=== PATIENT | male | born 1930 | race Caucasian/White ===

== ENCOUNTER 2017-05-05 11:13 | Inpatient (IN) | payer MEDICARE ==
[2017-05-05] MEDS ORDERED: ONDANSETRON HCL IV 4 MG/2 ML VIAL IVP ONE ×2 (11:15→11:27)
[2017-05-05] MEDS ORDERED: 0.9 % SODIUM CHLORIDE 1000ML 1,000 ML IV ONE (11:27)
--- NOTE | 2017-05-05 11:31 | Emergency Department Record ---
History of Present Illness - General Chief Complaint: Confusion Stated Complaint: NOT FEELLING WELL Time Seen by Provider: 05/05/17 11:25 Source: Patient, Family Mode of Arrival: Wheelchair Limitations: No limitations - History of Present Illness Initial Comments: 86 yo male presents with weakness, nausea, vomiting, dizziness, trouble concentrating for the last two days. His family reports he has kept very little down during the two days. He is feeling weak and tired. He has some mild upset stomach and vague abdominal discomfort. His family reports he has been confused at times.as well. Normal bowel movement this morning. No fever. No cough, chest pain or shortness of breath. PCP is Dr Xiong. Complaint: Weakness Onset/Timin -: Days(s) Severity: Mild Consistency: Constant Associated Symptoms: Denies other symptoms - Reymundo Coma Scale Eye Response: (4) Open spontaneously Motor Response: (6) Obeys commands Verbal Response: (5) Oriented Reymundo Total: 15 - Related Data Home Medications Medication Instructions Recorded Confirmed Last Taken Cholecalciferol (Vitamin D3) 5,000 unit PO WEEKLY 05/05/17 05/05/17 Unknown [Vitamin D3] Tamsulosin HCl [Flomax] 0.4 mg PO QHS 05/05/17 05/05/17 Unknown Allergies Allergy/AdvReac Type Severity Reaction Status Date / Time triamterene [From Dyazide] AdvReac ITCHING Verified 11/22/15 18:49 Travel Screening - Travel/Exposure Within Last 30 Days Have you traveled within the last 30 days?: No - Travel/Exposure Within Last Year Have you traveled outside the [place] in the last year?: No - Additonal Travel Details Have you been exposed to anyone with a communicable illness?: No - Travel Symptoms Symptom Screening: None Review of Systems Constitutional: Reports: Malaise, Weakness. Denies: Chills, Fever Eyes: Denies: Eye discharge, Eye pain, Photophobia, Vision change ENT: Denies: Congestion, Ear pain, Epistaxis, Throat pain Respiratory: Denies: Cough, Dyspnea, Hemoptysis, Stridor, Wheezes Cardiovascular: Denies: Chest pain, Palpitations, Syncope Endocrine: Reports: Fatigue. Denies: Polydipsia, Polyuria Gastrointestinal: Reports: As per HPI, Abdominal pain, Nausea, Vomiting. Denies : Diarrhea Genitourinary: Denies: Dysuria, Frequency, Hematuria, Urgency Musculoskeletal: Denies: Arthralgia, Back pain, Joint swelling, Myalgia Skin: Denies: Bruising, Change in color, Rash Neurological: Reports: Confusion, Headache, Vertigo, Weakness. Denies: Numbness , Tingling, Tremors Psychiatric: Denies: Anxiety Hematological/Lymphatic: Denies: Blood Clots, Easy bleeding, Easy bruising, Swollen glands Past Medical History - SOCIAL HISTORY Smoking Status: Never smoker Alcohol Use: None Drug Use: None - RESPIRATORY Hx Respiratory Disorders: No - CARDIOVASCULAR Hx Cardio Disorders: Yes Hx Heart Attack: Yes Hx Hypertension: Yes - NEURO Hx Neuro Disorders: No - GI Hx GI Disorders: Yes Hx Reflux: Yes Comment:: bowel obstruction - Hx Genitourinary Disorders: Yes Hx Prostate Problems: Yes - ENDOCRINE Hx Endocrine Disorders: Yes Hx Diabetes: Yes Comment:: checks blood sugars 2x/day - MUSCULOSKELETAL Hx Musculoskeletal Disorders: Yes Hx Arthritis: Yes - PSYCH Hx Psych Problems: No - HEMATOLOGY/ONCOLOGY Hx Hematology/Oncology Disorders: Yes Hx Cancer: Yes (Colon) Hx Chemotherapy: No Hx Radiation Therapy: Yes Family Medical History Any Significant Family History?: Yes Hx Heart Disease: Mother Physical Exam - General General Appearance: Alert, Oriented x3, Cooperative, No acute distress Limitations: No limitations - Head Head exam: Atraumatic, Normocephalic, Normal inspection - Eye Eye exam: Normal appearance, PERRL. negative: Conjunctival injection, Periorbital swelling - ENT ENT exam: Normal exam, Mucous membranes moist, Normal orophraynx Ear exam: Normal external inspection Nasal Exam: Normal inspection Mouth exam: Normal external inspection - Neck Neck exam: Normal inspection, Full ROM. negative: Tenderness - Respiratory Respiratory exam: Normal lung sounds bilaterally. negative: Respiratory distress - Cardiovascular Cardiovascular Exam: Regular rate, Normal rhythm, Normal heart sounds Peripheral Pulses: 2+: Radial (R), Radial (L) - GI/Abdominal GI/Abdominal exam: Soft, Tenderness (Mid epigastric tenderness at this time but very soft). negative: Distended, Guarding, Rebound, Rigid - Rectal Rectal exam: Deferred - exam: Deferred - Extremities Extremities exam: Normal inspection, Full ROM. negative: Pedal edema, Tenderness - Back Back exam: Reports: Normal inspection. Denies: CVA tenderness (R), CVA tenderness (L) - Neurological Neurological exam: Alert, CN II-XII intact. negative: Motor sensory deficit - Psychiatric Psychiatric exam: Normal affect, Normal mood. negative: Agitated, Anxious - Skin Skin exam: Dry, Intact, Normal color, Warm Course Vital Signs 05/05/17 11:18 Temperature 97.4 F L Pulse Rate 92 H Respiratory 20 Rate Blood Pressure 183/104 Pulse Ox 95 - Reevaluation(s) Reevaluation #1: EMR reviewed from last H and P. Hx of DM, CAD, bowel obstruction, HTN. 05/05/17 11:30 05/05/17 12:01 EKG 11:43 NSR rate of 84 intervals QtC 464, [place] left, [facility], no significant changes from 09/06/16. 05/05/17 12:10 The labs were reviewed to this point CBC no acute changes. hgb is 16 with WBC 11 On the CMP the glucose is elevated at 585, AG of 23 and HCO3 of 20. BUN and CR are 18 and 0.6 Troponin is axbamgh2a LFT are negative. 05/05/17 12:14 On recheck the patient has improved nausea His abdomen is very soft and not tender. pH and Acetone included. 05/05/17 13:08 pH is 7.34 with positive acetone 05/05/17 13:16 I KELLY Lau of the admission service for admission for elevated glucose, weakness, and confusion Medical Decision Making - Lab Data Result diagrams: 05/05/17 11:35 05/05/17 11:35 Disposition Disposition: Admit Clinical Impression: Hyperglycemia, Nausea and vomiting Disposition: Still a Patient at [facility] Decision to Admit: Admit from ER Decision to Admit Date: 05/05/17 Decision to Admit Time: 13:16 Condition: (2) Stable Time of Disposition: 13:16 Quality - Quality Measures Quality Measures: N/A - Blood Pressure Screening Does Patient Have Any of the Following: No Blood Pressure Classification: Hypertensive Reading Systolic Measurement: 171 Diastolic Measurement: 103 Screening for High Blood Pressure: < Pre-Hypertensive BP, F/U Documented > [ [id number]] Pre-Hypertensive Follow-up Interventions: Referral to alternative/primary care provider.
[2017-05-05 11:45] LABS: HEMATOCRIT 47.6 % (42.0-52.0); HEMOGLOBIN 16.5 gm/dl (14.0-18.0); MEAN CELL VOLUME 83.5 fl (81-97); MEAN CORPUSCULAR HEMOGLOBIN 28.9 pg (27-33); MEAN CORPUSCULAR HGB CONC 34.7 g/dl (32-36); MEAN PLATELET VOLUME 11.8 fl (7.4-10.4); PLATELET COUNT 243 K/uL (130-400); RED CELL DISTRIBUTION WIDTH 13.9 % (11.5-14.5); WHITE BLOOD COUNT W/O DIFF 11.2 K/uL (4.2-12.2)
[2017-05-05 12:02] LABS: ALB/GLOB RATIO 1.5 (1.1-1.8); ALBUMIN 4.2 g/dL (4.0-5.0); ALKALINE PHOSPHATASE 129 U/L (40-129); ALT/SGPT 19 U/L (<41); AST/SGOT 18 U/L (10.0-50.0); BLOOD UREA NITROGEN 18 mg/dL (8-23); CREATININE 0.9 mg/dL (0.7-1.2); EST GLOMERULAR FILTRATION RATE > 60 mL/min
[2017-05-05 12:06] LABS: TROPONIN I < 0.30 ng/mL (0.00-0.300)
[2017-05-05 12:45] LABS: URINE APPEARANCE CLEAR; URINE BILIRUBIN NEGATIVE (NEGATIVE); URINE BLOOD TRACE-I (NEGATIVE); URINE COLOR YELLOW; URINE KETONE 40 mg/dL (NEGATIVE); URINE LEUKOCYTE ESTERASE NEGATIVE (NEGATIVE); URINE NITRITE NEGATIVE (NEGATIVE); URINE PROTEIN TRACE (NEGATIVE); URINE UROBILINOGEN 0.2 E.U./dL (0.20 - 1.00)
[2017-05-05 12:55] LABS: URINE RBC 0 - 2 (NONE SEEN); URINE SQUAMOUS EPITHELIAL CELL 0 - 2 /hpf; URINE WBC 0 - 2 (0-2/hpf)
[2017-05-05 13:03] LABS: ACETONE,SERUM POSITIVE (NEGATIVE)
[2017-05-05] MEDS ORDERED: HUMULIN R 100 UNIT/ML VIAL SQ ONE (13:03)
[2017-05-05] MEDS ORDERED: ONDANSETRON HCL IV 4 MG/2 ML VIAL IVP PRN (13:48)
[2017-05-05] MEDS ORDERED: POTASSIUM CHLORIDE/D5-0.9%NACL 20 MEQ/1,000 ML BAG IV ONE (13:48)
[2017-05-05] MEDS ORDERED: FLU VAC QS 2017-18 (INPT, 6MO+) 60MCG/0.5ML IM ONE (14:02)
[2017-05-05] MEDS ORDERED: PNEUM 13-VAL/PF 0.5 ML IM ONE (14:08)
[2017-05-05] MEDS ORDERED: LEVEMIR FLEXTOUCH 100 UNIT/ML INSULIN PEN SQ ONE (15:08)
[2017-05-05 16:54] LABS: BLOOD UREA NITROGEN 18 mg/dL (8-23); EST GLOMERULAR FILTRATION RATE > 60 mL/min
[2017-05-05 17:09] LABS: GLUCOSE,RANDOM 585 mg/dL (74-109)
[2017-05-05 17:10] LABS: GLUCOSE,RANDOM 470 mg/dL (74-109)
[2017-05-05] MEDS: 0.9 % SODIUM CHLORIDE 1000ML 1,000 ML IV SCH (17:24)
[2017-05-05] MEDS: CARVEDILOL 3.125 MG TABLET PO SCH (21:08)
[2017-05-05] MEDS: SIMVASTATIN 20 MG TABLET PO SCH (21:09)
[2017-05-05] MEDS: DULOXETINE HCL 30 MG CAPSULE.DR PO SCH (21:09)
[2017-05-05] MEDS: TAMSULOSIN HCL 0.4 MG CAP.ER.24H PO SCH (21:10)
[2017-05-05] MEDS: LEVEMIR FLEXTOUCH 100 UNIT/ML INSULIN PEN SQ SCH (21:45)
[2017-05-06] MEDS: 0.9 % SODIUM CHLORIDE 1000ML 1,000 ML IV SCH ×3 (01:54→16:07)
[2017-05-06] MEDS: PANTOPRAZOLE SODIUM 40 MG TABLET PO SCH (06:08)
[2017-05-06 06:45] LABS: BLOOD UREA NITROGEN 12 mg/dL (8-23); CREATININE 0.8 mg/dL (0.7-1.2); EST GLOMERULAR FILTRATION RATE > 60 mL/min; GLUCOSE,RANDOM 280 mg/dL (74-109)
--- NOTE | 2017-05-06 07:37 | History & Physical ---
History of Present Illness - Date of Service Date of Service for History & Physical: 05/06/17 - History of Present Illness Admitting Diagnosis: Hyperglycemia, dehydration, confusion, weakness History of Present Illness: Mr. Salcedo is an 86 y/o male who presents with complaint of nausea, vomiting and weakness of the past 3 days. As per the patient's he complained of abdominal pains and having an upset stomach and then had about 4 episodes of non -bloody vomiting and a loose bowel movement. She says that he his diabetic and eats very poorly and has had poor control of his blood sugar because of his diet. The patient says that he continued taking his insulin dspite not being able to keep food down but his states that he sometimes forgets to take his insulin. He has had no other sick contacts and no one else within the household has had similar symptoms. The patient denies, headache, blurring of vision, fever or chest pain. Travel Screening - Travel/Exposure Within Last 30 Days Have you traveled within the last 30 days?: No - Travel/Exposure Within Last Year Have you traveled outside the [place] in the last year?: No - Additonal Travel Details Have you been exposed to anyone with a communicable illness?: No - Travel Symptoms Symptom Screening: None Review of Systems Constitutional: Reports: Malaise, Weakness. Denies: Chills, Fever Eyes: Denies: Eye discharge, Eye pain, Photophobia, Vision change ENT: Reports: Hearing loss (the patient is hard of hearing and wears hearing devices bilaterally ). Denies: Congestion, Ear pain, Epistaxis, Throat pain Respiratory: Denies: Cough, Dyspnea, Hemoptysis, Stridor, Wheezes Cardiovascular: Denies: Chest pain, Palpitations, Syncope Endocrine: Reports: Fatigue, Other (diabetes mellitus with poor control ). Denies: Polydipsia, Polyuria Gastrointestinal: Reports: As per HPI, Abdominal pain, Nausea, Vomiting. Denies : Diarrhea Genitourinary: Denies: Dysuria, Frequency, Hematuria, Urgency Musculoskeletal: Denies: Arthralgia, Back pain, Joint swelling, Myalgia Skin: Denies: Bruising, Change in color, Rash Neurological: Reports: Confusion, Headache, Vertigo, Weakness. Denies: Numbness , Tingling, Tremors Psychiatric: Denies: Anxiety Hematological/Lymphatic: Denies: Blood Clots, Easy bleeding, Easy bruising, Swollen glands Past Medical History - SOCIAL HISTORY Smoking Status: Never smoker Alcohol Use: None Drug Use: None - RESPIRATORY Hx Respiratory Disorders: No - CARDIOVASCULAR Hx Cardio Disorders: Yes Hx Heart Attack: Yes Hx Hypertension: Yes - NEURO Hx Neuro Disorders: No - GI Hx GI Disorders: Yes Hx Reflux: Yes Comment:: bowel obstruction - Hx Genitourinary Disorders: Yes Hx Prostate Problems: Yes - ENDOCRINE Hx Endocrine Disorders: Yes Hx Diabetes: Yes Comment:: checks blood sugars 2x/day - MUSCULOSKELETAL Hx Musculoskeletal Disorders: Yes Hx Arthritis: Yes - PSYCH Hx Psych Problems: No - HEMATOLOGY/ONCOLOGY Hx Hematology/Oncology Disorders: Yes Hx Cancer: Yes (Colon) Hx Chemotherapy: No Hx Radiation Therapy: Yes Family Medical History Any Significant Family History?: Yes Hx Heart Disease: Mother H&P Meds/Allergies - Allergies Allergies: Allergies Allergy/AdvReac Type Severity Reaction Status Date / Time triamterene [From Dyazide] AdvReac ITCHING Verified 11/22/15 18:49 - Home Medications Home Medications Medication Instructions Recorded Confirmed Last Taken Cholecalciferol (Vitamin D3) 5,000 unit PO WEEKLY 05/05/17 05/05/17 Unknown [Vitamin D3] Tamsulosin HCl [Flomax] 0.4 mg PO QHS 05/05/17 05/05/17 Unknown - Active Medications Active Medications: Current Medications Aspirin (Aspirin, Regular) 325 mg PO DAILY [facility] Carvedilol (Coreg) 6.25 mg PO BID [facility] Last Admin: 05/05/17 21:08 Dose: 6.25 mg Duloxetine HCl (Cymbalta) 60 mg PO QHS [facility] Last Admin: 05/05/17 21:09 Dose: 60 mg Enoxaparin Sodium (Lovenox) 40 mg SC DAILY [facility] Sodium Chloride () 1,000 mls @ 100 mls/hr IV .Q10H [facility] Last Admin: 05/06/17 01:54 Dose: 100 mls/hr Insulin Detemir (Levemir Flextouch) 30 unit SQ BID [facility] Last Admin: 05/05/17 21:45 Dose: 30 unit Ondansetron HCl (Zofran) 4 mg IVP Q4H PRN PRN Reason: NAUSEA [facility]opraz[facility] Last Admin: 05/06/17 06:08 Dose: 40 mg Patient Own Med: (Felodipine 10 Mg Tab) 1 each PO DAILY [facility] Simvastatin (Zocor) 40 mg PO QHS [facility] Last Admin: 05/05/17 21:09 Dose: 40 mg Tamsulosin HCl (Flomax) 0.4 mg PO QHS [facility] Last Admin: 05/05/17 21:10 Dose: 0.4 mg Vitamin D (Vitamin D3) 5,000 unit PO WEEKLY [facility] Physical Exam - Vital Signs Vital Signs: Vital Signs - Last 24 Hrs Temp Pulse Resp BP Pulse Ox 05/06/17 04:00 97.7 F 76 18 152/93 99 05/06/17 00:00 98.0 F 68 18 157/79 97 05/05/17 21:00 78 20 05/05/17 19:48 97.7 F 78 20 153/89 97 05/05/17 15:48 98.1 F 85 150/91 98 05/05/17 14:17 84 20 05/05/17 13:48 97.4 F L 82 177/99 98 - General General Appearance: Alert, Oriented x3, Cooperative, No acute distress Limitations: No limitations - Head Head exam: Atraumatic, Normocephalic, Normal inspection - Eye Eye exam: Normal appearance, PERRL. negative: Conjunctival injection, Periorbital swelling - ENT ENT exam: Normal exam, Mucous membranes moist, Normal orophraynx Ear exam: Normal external inspection, Other (poor hearing bilaterally ) Nasal Exam: Normal inspection Mouth exam: Normal external inspection - Neck Neck exam: Normal inspection, Full ROM. negative: Tenderness - Respiratory Respiratory exam: Normal lung sounds bilaterally. negative: Respiratory distress - Cardiovascular Cardiovascular Exam: Regular rate, Normal rhythm, Normal heart sounds Peripheral Pulses: 2+: Radial (R), Radial (L) - GI/Abdominal GI/Abdominal exam: Soft, Normal bowel sounds. negative: Distended, Guarding, Rebound, Rigid, Tenderness - Rectal Rectal exam: Deferred - exam: Deferred - Extremities Extremities exam: Normal inspection, Full ROM. negative: Pedal edema, Tenderness - Back Back exam: Reports: Normal inspection. Denies: CVA tenderness (R), CVA tenderness (L) - Neurological Neurological exam: Alert, CN II-XII intact. negative: Motor sensory deficit - Psychiatric Psychiatric exam: Normal affect, Normal mood. negative: Agitated, Anxious - Skin Skin exam: Dry, Intact, Normal color, Warm Results - Labs Result Diagrams: 05/05/17 11:35 05/06/17 06:30 Labs Last 24 Hours: Laboratory Results - last 24 hr 05/05/17 05/05/17 05/05/17 14:55 16:30 17:00 Sodium 139 Potassium 4.6 H Chloride 100 Carbon Dioxide 25.0 Anion Gap 14.0 BUN 18 Creatinine 1.0 Estimated GFR > 60 POC Glucose 463 H* Cancelled Random Glucose 470 H* Calcium 8.8 05/05/17 05/05/17 05/05/17 17:07 21:51 22:00 Sodium Potassium Chloride Carbon Dioxide Anion Gap BUN Creatinine Estimated GFR POC Glucose 470 H* 400 H Cancelled Random Glucose Calcium 05/06/17 06:30 Sodium 138 Potassium 4.0 Chloride 101 Carbon Dioxide 27.0 Anion Gap 10.0 BUN 12 Creatinine 0.8 Estimated GFR > 60 POC Glucose Random Glucose 280 H Calcium 8.3 L VTE H&P Assessment - Risk for VTE Risk for VTE: No Risk Level: Very Low Risk Assessment Date: 05/06/17 Risk Assessment Time: 11:55 VTE Orders Placed or Will Be Placed: No VTE Reason for No Prophylaxis: Not Indicated Plan - Inpatient Certification Inpatient Certification: Admit to inpatient care: Based on my medical assessment, after consideration of patient's risk factors (age, co-morbidities and patient presenting symptoms and acuity), I expect that this patient will remain in the hospital greater than or equal to two midnights and that the services needed warrant inpatient care because: Estimated length of stay: 48 hours The patient may reasonably be expected to be discharged or transferred to a hospital within 96 hours after admission to [facility]. I certify that my determination is in accordance with my understanding of Medicare requirements for reasonable and necessary inpatient services. 05/06/17 11:55 - Detailed Diagnosis and Plan (1) Viral gastroenteritis Plan: - pt had N/V/diarrhea, no fever/no elevatoin in WBCs, -now resolved. - keep patient hydrated, was D5 1/2 NS @ 15mL/hr, changed to Nacl 0.9% @ 100mL/ hr - on liquid diet, to be advanced to full diet this am. - cont Protonix 40mg IV QD, Zofran 4mg PRN Current Visit: Yes Status: Acute Base Code: A08.4 - VIRAL INTESTINAL INFECTION, UNSPECIFIED (2) Hyperglycemia due to type 2 diabetes mellitus Plan: - intial serum glucose 585 AG 23, ketonuria and + acetones - pt started on Levemir 30units BID, CBG 400 --> 470 --> additional dose of Levemir 10 units given on GMF -->280 - diabetic diet to be advanced as tolerated, CBGs q8H, cont IVF Nacl 0.9% @ 100mL/hr - Current Visit: Yes Status: Acute Base Code: E11.65 - TYPE 2 DIABETES MELLITUS WITH HYPERGLYCEMIA (3) BPH (benign prostatic hyperplasia) Plan: - resume flomax 0.4mg QD Current Visit: Yes Status: Acute Base Code: N40.0 - BENIGN PROSTATIC HYPERPLASIA WITHOUT LOWER URINRY TRACT SYMP (4) Hypertension Plan: - current BP 147/92 -ECG - normal w/o evidence of any ST-T wave abnormalities. - resumed Coreg 6.25mg BID, ASA 81mg and statin. Current Visit: Yes Status: Acute Base Code: I10 - ESSENTIAL (PRIMARY) HYPERTENSION (5) Full code status Plan: FULL CODE Current Visit: Yes Status: Acute Base Code: Z78.9 - OTHER SPECIFIED HEALTH STATUS - Disposition Likely D/C today of tolerating diet and CBG shows improvement over the next few hours.
[2017-05-06] MEDS: ASPIRIN 325 MG TABLET PO SCH (09:14)
[2017-05-06] MEDS: ENOXAPARIN 40 MG/0.4 ML SYR SC SCH (09:14)
[2017-05-06] MEDS: LEVEMIR FLEXTOUCH 100 UNIT/ML INSULIN PEN SQ SCH (09:14)
[2017-05-06] MEDS: CARVEDILOL 3.125 MG TABLET PO SCH ×2 (09:14→22:42)
[2017-05-06] MEDS: FELODIPINE 10 MG PO SCH (09:20)
--- NOTE | 2017-05-06 12:21 | Discharge Summary ---
Providers Discharge Summary Date: 05/07/17 Date of admission: 05/05/17 13:45 Attending physician: Benjamin Palmer Primary care physician: MARISELA DELEON D.O. Physical Exam - Vital Signs Vital Signs: Vital Signs - Last 24 Hrs Temp Pulse Resp BP Pulse Ox 05/06/17 08:28 20 05/06/17 08:00 97.9 F 77 18 147/92 98 05/06/17 04:00 97.7 F 76 18 152/93 99 05/06/17 00:00 98.0 F 68 18 157/79 97 05/05/17 21:00 78 20 05/05/17 19:48 97.7 F 78 20 153/89 97 05/05/17 15:48 98.1 F 85 150/91 98 05/05/17 14:17 84 20 05/05/17 13:48 97.4 F L 82 177/99 98 - General General Appearance: Alert, Cooperative, No acute distress Limitations: No limitations - Head Head exam: Atraumatic, Normocephalic, Normal inspection - Eye Eye exam: Normal appearance, PERRL. negative: Conjunctival injection, Periorbital swelling - ENT ENT exam: Normal exam, Mucous membranes moist, Normal orophraynx Ear exam: Normal external inspection, Other (poor hearing bilaterally ) Nasal Exam: Normal inspection Mouth exam: Normal external inspection - Neck Neck exam: Normal inspection, Full ROM. negative: Tenderness - Respiratory Respiratory exam: Normal lung sounds bilaterally. negative: Respiratory distress - Cardiovascular Cardiovascular Exam: Regular rate, Normal rhythm, Normal heart sounds Peripheral Pulses: 2+: Radial (R), Radial (L) - GI/Abdominal GI/Abdominal exam: Soft, Normal bowel sounds. negative: Distended, Guarding, Rebound, Rigid, Tenderness - Rectal Rectal exam: Deferred - exam: Deferred - Extremities Extremities exam: Normal inspection, Full ROM. negative: Pedal edema, Tenderness - Back Back exam: Reports: Normal inspection. Denies: CVA tenderness (R), CVA tenderness (L) - Neurological Neurological exam: Alert, CN II-XII intact. negative: Motor sensory deficit - Psychiatric Psychiatric exam: Normal affect, Normal mood. negative: Agitated, Anxious - Skin Skin exam: Dry, Intact, Normal color, Warm Hospitalization - Hospitalization Admission Diagnosis: Hyperglycemia, dehydration, confusion, weakness - Problem List/Discharge Diagnosis (1) Viral gastroenteritis Plan: - pt had N/V/diarrhea, no fever/no elevatoin in WBCs, -now resolved. - keep patient hydrated, was D5 1/2 NS @ 15mL/hr, changed to Nacl 0.9% @ 100mL/ hr - on liquid diet, to be advanced to full diet this am. - cont Protonix 40mg IV QD, Zofran 4mg PRN Current Visit: Yes Status: Acute Base Code: A08.4 - VIRAL INTESTINAL INFECTION, UNSPECIFIED (2) Hyperglycemia due to type 2 diabetes mellitus Plan: - intial serum glucose 585 AG 23, ketonuria and + acetones - pt started on Levemir 30units BID, CBG 400 --> 470 --> additional dose of Levemir 10 units given on F -->280 - diabetic diet to be advanced as tolerated, CBGs q8H, cont IVF Nacl 0.9% @ 100mL/hr - Current Visit: Yes Status: Acute Base Code: E11.65 - TYPE 2 DIABETES MELLITUS WITH HYPERGLYCEMIA (3) BPH (benign prostatic hyperplasia) Plan: - resume flomax 0.4mg QD Current Visit: Yes Status: Acute Base Code: N40.0 - BENIGN PROSTATIC HYPERPLASIA WITHOUT LOWER URINRY TRACT SYMP (4) Hypertension Plan: - current BP 147/92 -ECG - normal w/o evidence of any ST-T wave abnormalities. - resumed Coreg 6.25mg BID, ASA 81mg and statin. Current Visit: Yes Status: Acute Base Code: I10 - ESSENTIAL (PRIMARY) HYPERTENSION (5) Full code status Plan: FULL CODE Current Visit: Yes Status: Acute Base Code: Z78.9 - OTHER SPECIFIED HEALTH STATUS - Disposition Likely D/C today of tolerating diet and CBG shows improvement over the next few hours. - Hospitalization Course Hospital Course: 86 y/o male who presented with complaint of N/V, diarrhea for 3 days. He was found on admission to be hyperglycemic and appeared weak and lethargic on physical examination. Initial workup ruled out acute coronary of gastrointestinal pathologies and the patient was started on IVF and insulin dosing. He was admitted to the [facility] for further monitoring. His initial CBG on the [facility] was 470, he was given an additional 10 units of Levemir and the CBG decreased to 400mg and subsequently 280 on this morning's read. The patient's symptoms have resolved and he no longer complains of diarrhea, or N/V. He has been on a clear liquid diet which will be advanced to a full diabetic diet this morning. If the patient tolerates the diet and CBG improves discharge is anticipated for this afternoon. addendum: the patient's CBG was sustained at > 300 so he was kept overnight. He is given a basal dose of Levemir 30 units QHS with pre-meal doses of 12 units TIDAC which markedly improved symptoms. The patient will be educated on his dosing and plan for d/c. Abnormal Labs: Abnormal Lab Results 05/05/17 05/05/17 05/05/17 Range/Units 14:55 16:30 17:07 Potassium 4.6 H (3.4-4.5) mmol/L POC Glucose 463 H* 470 H* (70-110) mg/dL Random Glucose 470 H* (74-109) mg/dL Calcium (8.8-10.2) mg/dL 05/05/17 05/06/17 Range/Units 21:51 06:30 Potassium (3.4-4.5) mmol/L POC Glucose 400 H (70-110) mg/dL Random Glucose 280 H (74-109) mg/dL Calcium 8.3 L (8.8-10.2) mg/dL Condition at Discharge: (2) Stable Discharge Medications - Discharge Medications Prescriptions: Insulin Aspart [Novolog Flexpen] 12 unit SQ TIDINS #1 ml Home Medications: Ambulatory Orders Aspirin, Regular 325 mg PO DAILY 01/15/14 [Last Taken 11/22/15] Carvedilol [Coreg] 6.25 mg PO BID 01/15/14 [Last Taken 11/22/15] Duloxetine HCl [Cymbalta] 60 mg PO QHS 01/15/14 [Last Taken 11/21/15] Felodipine [Felodipine ER] 10 mg PO DAILY 01/15/14 [Last Taken 11/22/15] Omeprazole [Prilosec] 20 mg PO DAILYAC 01/15/14 [Last Taken 11/22/15] Simvastatin [Zocor] 40 mg PO QHS 01/15/14 [Last Taken 11/21/15] Cholecalciferol (Vitamin D3) [Vitamin D3] 5,000 unit PO WEEKLY 05/05/17 [Last Taken Unknown] Tamsulosin HCl [Flomax] 0.4 mg PO QHS 05/05/17 [Last Taken Unknown] Insulin Aspart [Novolog Flexpen] 12 unit SQ TIDINS #1 ml 05/07/17 [Last Taken Unknown] Insulin Glargine,Hum.rec.anlog [Lantus] 35 unit SQ BID #0 05/07/17 [Last Taken 11/22/15] Tamsulosin HCl [Flomax] 0.4 mg PO QHS cap.er.24h 05/07/17 [Last Taken Unknown] Discharge Plan - Discharge Instructions Activity at Discharge: Resume Usual Activities As Tolerated Diet at Discharge: Diabetic Diet Instructions: Diabetic Ketoacidosis (DC), Meal Planning with Diabetes Exchanges (DC), Managing Diabetes During Sick Days (DC), Diabetic Hyperglycemia (DC) Quality Measures - Quality Measures Quality Measures: Atrial Fibrillation & Atrial Flutter: Chronic Anticoagulation Therapy, Advance Directives, Documentation of Current Medications in Medical Record, Elder Maltreatment Screen and Follow-Up Plan, Heart Failure, Screening for High Blood Pressure and F/U Documented - Current Medications Quality Measure: Measure #130: Documentation of Current Medications Documentation of Current Medications: <Current Medications Documented/Reviewed> [G8413] - Blood Pressure Screening Quality Measure: Screening for High Blood Pressure and Follow-Up Documented Does Patient Have Any of the Following: Active Dx of HTN Blood Pressure Classification: Hypertensive Reading Systolic Measurement: 171 Diastolic Measurement: 103 Screening for High Blood Pressure: Patient Exclusion, Hx of HTN [G9744] - Atrial Fibrillation and Atrial Flutter Quality Measure: Atrial Fibrillation & Atrial Flutter: Chronic Anticoagulation Therapy Does Patient Have Any of the Following: No CHADS2 Risk Stratification: Age 75 or Greater, Hypertension, Diabetes Mellitus Risk Stratification Summary: One or more high risk factors OR more than one moderate risk factor exists. [G8972] Anticoagulation Therapy: Not Prescribed for Patient Reason [G8969] (N/V) Patient Reason for NOT Prescribing Anticoagulant: Other Patient Reason Medical Reason for NOT Prescribing Anticoagulant: Other Medical Reason (N/V) - Heart Failure (KAREN/ARB Therapy) Quality Measure: Heart Failure Left Ventricular Systolic Function: Unknown KAREN Inhibitor or ARB Therapy for LVSD: Not Eligible - Heart Failure (Beta-shaggy Therapy) Quality Measure: Heart Failure Left Ventricular Systolic Function: Unknown Beta-Shaggy Therapy for LVEF < 40%: Not Eligible - Advance Directives Quality Measure: Measure #47: Care Plan Advance Directives Established: Yes Advance Directives Information Provided To Patient: No Advance Directives on File: No Living Will: Yes Power of Netsuite Developer: Yes Advance Care Planning: <Care Plan/Decision Maker Not Decided; Discussed & Documented> [1124F] - Elder Abuse Suspicion Index Screening: Elder Abuse Suspicion Index Screening Rely on people for bathing, dressing, shopping, banking, etc: No Prevented from getting food, clothes, medication, etc: No Made to feel shamed or threatened by someone: No Forced to sign papers or use money against will: No Feel afraid, touched in ways not wanted or hurt physically: No Poor eye contact, withdrawn, malnourished, cuts or bruises: No Screening Result: Negative result EASI Reference Information: Feliciano MCKEON, Fidencio C, Derrek D, Lizzie Barone.Development and validation of a tool to assist physicians identification of elder abuse: The Elder Abuse Suspicion Index (EASI ). Journal of Elder Abuse and Neglect, 2008; 20 (3): 276-300. - Elder Maltreatment Screen Quality Measures: Elder Maltreatment Screen and Follow-Up Plan Elder Maltreatment Screen: <Negative, No Follow-Up Plan Required> [G2303]
[2017-05-06] MEDS ORDERED: NOVOLOG FLEXPEN (INSULIN ASPART) 100 UNITS/ML SQ ONE (14:14)
[2017-05-06] MEDS: NOVOLOG FLEXPEN (INSULIN ASPART) 100 UNITS/ML SQ SCH (17:26)
[2017-05-06] MEDS ORDERED: LEVEMIR FLEXTOUCH 100 UNIT/ML INSULIN PEN SQ SCH ×2 (22:00)
[2017-05-06] MEDS: TAMSULOSIN HCL 0.4 MG CAP.ER.24H PO SCH (22:42)
[2017-05-06] MEDS: DULOXETINE HCL 30 MG CAPSULE.DR PO SCH (22:42)
[2017-05-06] MEDS: SIMVASTATIN 20 MG TABLET PO SCH (22:42)
[2017-05-07] MEDS: 0.9 % SODIUM CHLORIDE 1000ML 1,000 ML IV SCH (02:25)
[2017-05-07] MEDS: PANTOPRAZOLE SODIUM 40 MG TABLET PO SCH (06:09)
[2017-05-07 06:40] LABS: BLOOD UREA NITROGEN 11 mg/dL (8-23); CREATININE 0.7 mg/dL (0.7-1.2); EST GLOMERULAR FILTRATION RATE > 60 mL/min; GLUCOSE,RANDOM 201 mg/dL (74-109)
--- NOTE | 2017-05-07 06:46 | Physician Progress Note ---
Subjective - Date Date of Physician Progress Note: 05/07/17 Objective - Vital Signs Vital Signs: Vital Signs - Last 24 Hrs Temp Pulse Resp BP Pulse Ox 05/07/17 00:32 98.3 F 79 18 140/81 95 05/06/17 20:13 18 05/06/17 19:53 97.6 F 70 18 162/91 95 05/06/17 16:00 97.5 F L 69 18 145/91 95 05/06/17 12:00 97.7 F 66 18 136/78 97 05/06/17 08:28 20 05/06/17 08:00 97.9 F 77 18 147/92 98 - General General Appearance: Alert, Cooperative, No acute distress Limitations: No limitations - Head Head exam: Atraumatic, Normocephalic, Normal inspection - Eye Eye exam: Normal appearance, PERRL. negative: Conjunctival injection, Periorbital swelling - ENT ENT exam: Normal exam, Mucous membranes moist, Normal orophraynx Ear exam: Normal external inspection, Other (poor hearing bilaterally ) Nasal Exam: Normal inspection Mouth exam: Normal external inspection - Neck Neck exam: Normal inspection, Full ROM. negative: Tenderness - Respiratory Respiratory exam: Normal lung sounds bilaterally. negative: Respiratory distress - Cardiovascular Cardiovascular Exam: Regular rate, Normal rhythm, Normal heart sounds Peripheral Pulses: 2+: Radial (R), Radial (L) - GI/Abdominal GI/Abdominal exam: Soft, Normal bowel sounds. negative: Distended, Guarding, Rebound, Rigid, Tenderness - Rectal Rectal exam: Deferred - exam: Deferred - Extremities Extremities exam: Normal inspection, Full ROM. negative: Pedal edema, Tenderness - Back Back exam: Reports: Normal inspection. Denies: CVA tenderness (R), CVA tenderness (L) - Neurological Neurological exam: Alert, CN II-XII intact. negative: Motor sensory deficit - Psychiatric Psychiatric exam: Normal affect, Normal mood. negative: Agitated, Anxious - Skin Skin exam: Dry, Intact, Normal color, Warm Assessment and Plan - Assessment and Plan (1) Hyperglycemia due to type 2 diabetes mellitus Plan: - intial serum glucose 585 AG 23, ketonuria and + acetones - pt started on Levemir 30units BID, CBG 400 --> 470 --> additional dose of Levemir 10 units given on GMF -->280 - yesterday the patient's CBG continued to be >300 despite Levemir 30 units BID. We have started on the patient on premeal insulin 12 units TIDAC with continued dosing of Levemir 30 units QHS. - diabetic diet to be advanced as tolerated, CBGs q8H, cont IVF Nacl 0.9% @ 100mL/hr - Current Visit: Yes Status: Acute Base Code: E11.65 - TYPE 2 DIABETES MELLITUS WITH HYPERGLYCEMIA (2) BPH (benign prostatic hyperplasia) Plan: - resume flomax 0.4mg QD Current Visit: Yes Status: Acute Base Code: N40.0 - BENIGN PROSTATIC HYPERPLASIA WITHOUT LOWER URINRY TRACT SYMP (3) Hypertension Plan: - BP 145/79 - resumed Coreg 6.25mg BID, ASA 81mg and statin. Current Visit: Yes Status: Acute Base Code: I10 - ESSENTIAL (PRIMARY) HYPERTENSION (4) Full code status Plan: FULL CODE Current Visit: Yes Status: Acute Base Code: Z78.9 - OTHER SPECIFIED HEALTH STATUS - Disposition Disposition: Patient was to be d/cd yesterday afternoon but because of uncontrolled CBG we kept him overnight for a change in regimen. We will revire labs this am and determine optimal home regimen. Likely D/C today. Results - Labs Result Diagrams: 05/05/17 11:35 05/07/17 06:15 Labs Last 24 Hours: Laboratory Results - last 24 hr 05/06/17 05/06/17 05/06/17 06:30 11:30 14:00 Sodium 138 Potassium 4.0 Chloride 101 Carbon Dioxide 27.0 Anion Gap 10.0 BUN 12 Creatinine 0.8 Estimated GFR > 60 POC Glucose 338 H 387 H Random Glucose 280 H Calcium 8.3 L 05/06/17 05/06/17 05/06/17 15:45 17:00 22:06 Sodium Potassium Chloride Carbon Dioxide Anion Gap BUN Creatinine Estimated GFR POC Glucose 364 H 349 H 387 H Random Glucose Calcium DVT/PE Assessment - Risk for VTE Risk for VTE: No Risk Level: Very Low Risk Assessment Date: 05/06/17 Risk Assessment Time: 11:55 VTE Orders Placed or Will Be Placed: No VTE Reason for No Prophylaxis: Not Indicated - Active Medicaitons Current Medications: Current Medications Aspirin (Aspirin, Regular) 325 mg PO DAILY [facility] Last Admin: 05/06/17 09:14 Dose: 325 mg Carvedilol (Coreg) 6.25 mg PO BID [facility] Last Admin: 05/06/17 22:42 Dose: 6.25 mg Duloxetine HCl (Cymbalta) 60 mg PO QHS [facility] Last Admin: 05/06/17 22:42 Dose: 60 mg Enoxaparin Sodium (Lovenox) 40 mg SC DAILY [facility] Last Admin: 05/06/17 09:14 Dose: 40 mg Sodium Chloride () 1,000 mls @ 100 mls/hr IV .Q10H [facility] Last Admin: 05/07/17 02:25 Dose: 100 mls/hr Insulin Aspart (Novolog Flexpen) 12 unit SQ TIDINS [facility] Last Admin: 05/06/17 17:26 Dose: 12 unit Insulin Detemir (Levemir Flextouch) 35 unit SQ QHS [facility] Last Admin: 05/06/17 22:43 Dose: 35 unit Ondansetron HCl (Zofran) 4 mg IVP Q4H PRN PRN Reason: NAUSEA [facility]opraz[facility]) [facility] Last Admin: 05/07/17 06:09 Dose: 40 mg Patient Own Med: (Felodipine 10 Mg Tab) 1 each PO DAILY [facility] Last Admin: 05/06/17 09:20 Dose: 1 each Simvastatin (Zocor) 40 mg PO QHS [facility] Last Admin: 05/06/17 22:42 Dose: 40 mg Tamsulosin HCl (Flomax) 0.4 mg PO QHS [facility] Last Admin: 05/06/17 22:42 Dose: 0.4 mg Vitamin D (Vitamin D3) 5,000 unit PO WEEKLY [facility] AMI Plan - Labs Result Diagrams: 05/05/17 11:35 05/07/17 06:15
--- NOTE | 2017-05-07 07:41 | CT SCAN REPORT ---
EXAM: CT SCAN OF THE BRAIN WITHOUT CONTRAST HISTORY: DIZZINESS AND CONFUSION. VOMITING. TECHNIQUE: Standard CT imaging of the brain was performed without contrast. Comparison: 01/15/14. FINDINGS: There is mild generalized atrophy. Mild chronic small vessel ischemic changes are present within the periventricular and subcortical white matter of both cerebral hemispheres and appear stable. There is no mass, mass effect, intracranial hemorrhage, visible acute infarct, or abnormal extraaxial fluid. The skull is intact. There is chronic opacification of the left frontal and anterior ethmoid sinuses. The remaining sinuses are clear. The mastoid air cells are clear. The orbits are unremarkable. IMPRESSION: 1. NO ACUTE INTRACRANIAL ABNORMALITY. 2. MILD ATROPHY AND CHRONIC SMALL VESSEL ISCHEMIC CHANGES. 3. CHRONIC OPACIFICATION OF THE LEFT FRONTAL AND ANTERIOR ETHMOID SINUSES. [facility]BER[facility] [id number] [facility]
[2017-05-07] MEDS: NOVOLOG FLEXPEN (INSULIN ASPART) 100 UNITS/ML SQ SCH (09:03)
[2017-05-07] MEDS: CARVEDILOL 3.125 MG TABLET PO SCH (10:19)
[2017-05-07] MEDS: ASPIRIN 325 MG TABLET PO SCH (10:19)
[2017-05-07] MEDS: FELODIPINE 10 MG PO SCH (10:20)
[2017-05-07] MEDS: ENOXAPARIN 40 MG/0.4 ML SYR SC SCH (10:21)
[2017-05-12] MEDS ORDERED: CHOLECALCIFEROL 1,000 UNIT TABLET PO SCH (10:00)
== END 2017-05-07 10:54 | disposition home or self-care (01) | DRG 392 ==
LOC: ER 11:13 → MEDSURG 13:45
PROVIDERS: ADMIT Internal Medicine; ATTEND Internal Medicine
DX: A08.4 Viral intestinal infection, unspecified (principal); A08.39 Other viral enteritis; E86.0 Dehydration; E11.65 Type 2 diabetes mellitus with hyperglycemia; Z79.4 Long term (current) use of insulin; R41.0 Disorientation, unspecified; R11.2 Nausea with vomiting, unspecified; I10 Essential (primary) hypertension; N40.0 Benign prostatic hyperplasia without lower urinary tract symptoms
CPT/HCPCS: 93041; 99285 ×2; 83735; 82800; 84484; 80053; 81001; 82009; 85027; 70450; 93005; 93010; J2405; 36416; 80048; 82948; 90670; 90686; 99223; 99239; J1650; J3480; J7030

== ENCOUNTER 2017-06-04 13:26 | Emergency (ER) | payer MEDICARE ==
--- NOTE | 2017-06-04 13:39 | Emergency Department Record ---
History of Present Illness - General Chief Complaint: Fall Injury Stated Complaint: FALL Time Seen by Provider: 06/04/17 13:37 Source: Patient, Family Mode of Arrival: Ambulatory Limitations: No limitations - History of Present Illness Initial Comments: 87 yo male presents after recurrent falls. His balance has worsened over the last one year. He has been using his cane but at times looses his footing. He denies hitting his head. He complains of left shoulder and chest tenderness since falling into a corner wall. He has pain of the left hand with bruising. No headaches, no nausea or vomiting. No shortness of breath. No edema. No exertion related chest pain. PCP Hankenson. KRAMER Complaint: Fall -: Days(s) Fall From: Standing When Fall Occurred: Recurrent falls Fall Witnessed: No Place Fall Occurred: Home Loss of Consciousness: None Prolonged Down Time?: No Symptoms Prior to Fall: Dizziness (over the last year) Location: Chest, Other (shoulder) Location - Extremities: Left: Shoulder, Hand Quality: Aching Associated Symptoms: Other (Increasing unsteadiness over the last year) - Reymundo Coma Scale Eye Response: (4) Open spontaneously Motor Response: (6) Obeys commands Verbal Response: (5) Oriented Reymundo Total: 15 - Related Data Previous Rx's Medication Instructions Recorded Insulin Aspart [Novolog Flexpen] 12 unit SQ TIDINS #1 ml 05/07/17 Insulin Glargine,Hum.rec.anlog 35 unit SQ BID #0 05/07/17 [Lantus] Tamsulosin HCl [Flomax] 0.4 mg PO QHS cap.er.24h 05/07/17 Allergies Allergy/AdvReac Type Severity Reaction Status Date / Time triamterene [From Dyazide] AdvReac ITCHING Unverified 06/04/17 12:34 Review of Systems Constitutional: Denies: Chills, Fever, Malaise, Weakness Eyes: Denies: Eye discharge, Eye pain, Photophobia, Vision change ENT: Denies: Congestion, Throat pain Respiratory: Denies: Cough, Dyspnea, Hemoptysis, Stridor, Wheezes Cardiovascular: Reports: Chest pain (chest wall, left upper anterior ribs near shoulder is tender) Endocrine: Denies: Fatigue, Polydipsia, Polyuria Gastrointestinal: Denies: Abdominal pain, Diarrhea, Nausea, Vomiting Genitourinary: Denies: Dysuria, Frequency, Hematuria Musculoskeletal: Reports: As per HPI, Arthralgia. Denies: Back pain, Joint swelling, Myalgia, Neck pain Skin: Reports: Bruising. Denies: Change in color, Rash Neurological: Reports: Abnormal gait (over the last year), Vertigo (over the last year). Denies: Confusion, Headache, Numbness, Tingling, Tremors, Weakness Psychiatric: Denies: Anxiety Hematological/Lymphatic: Denies: Anemia, Blood Clots, Easy bleeding, Easy bruising, Swollen glands Past Medical History - SOCIAL HISTORY Smoking Status: Never smoker Alcohol Use: None Drug Use: None - RESPIRATORY Hx Respiratory Disorders: No - CARDIOVASCULAR Hx Cardio Disorders: Yes Hx Heart Attack: Yes Hx Hypertension: Yes - NEURO Hx Neuro Disorders: No - GI Hx GI Disorders: Yes Hx Reflux: Yes Comment:: bowel obstruction - Hx Genitourinary Disorders: Yes Hx Prostate Problems: Yes - ENDOCRINE Hx Endocrine Disorders: Yes Hx Diabetes: Yes - MUSCULOSKELETAL Hx Musculoskeletal Disorders: Yes Hx Arthritis: Yes - PSYCH Hx Psych Problems: No - HEMATOLOGY/ONCOLOGY Hx Hematology/Oncology Disorders: Yes Hx Cancer: Yes (Colon) Hx Chemotherapy: No Hx Radiation Therapy: Yes Family Medical History Any Significant Family History?: Yes Hx Heart Disease: Mother Physical Exam - General General Appearance: Alert, Oriented x3, Cooperative, No acute distress Limitations: No limitations - Head Head exam: Atraumatic, Normocephalic, Normal inspection Head exam detail: negative: Abrasion, Contusion, Hematoma - Eye Eye exam: Normal appearance, PERRL, EOMI. negative: Conjunctival injection, Periorbital swelling - ENT ENT exam: Normal exam, Mucous membranes moist Ear exam: Normal external inspection Nasal Exam: Normal inspection Mouth exam: Normal external inspection - Neck Neck exam: Normal inspection, Full ROM, Other (Non tender and supple). negative : Tenderness - Respiratory Respiratory exam: Normal lung sounds bilaterally, Chest wall tenderness (tender left upper chest near shoulder). negative: Accessory muscle use, Decreased breath sounds, Respiratory distress, Rhonchi, Stridor - Cardiovascular Cardiovascular Exam: Regular rate, Normal rhythm, Normal heart sounds Peripheral Pulses: 2+: Radial (R), Radial (L) - GI/Abdominal GI/Abdominal exam: Soft. negative: Distended, Guarding, Rebound, Rigid, Tenderness - Rectal Rectal exam: Deferred - exam: Deferred - Extremities Extremities exam: Full ROM. negative: Normal inspection (abrasion left knee, left hand bruising and swelling), Calf tenderness, Joint swelling, Normal capillary refill, Pedal edema Image of Full Body: 1 - mild bruising, tender, near full ROM 2 - tenderness to palpation, no SQ air palpated 3 - superficial mild abrasion, full ROM without pain or tenderness 4 - normal inspection, no bruising, no tenderness - Back Back exam: Reports: Normal inspection, Full ROM, Muscle spasm. Denies: CVA tenderness (R), CVA tenderness (L) - Neurological Neurological exam: Alert, CN II-XII intact, Normal gait, Oriented X3. negative : Altered, Motor sensory deficit - Psychiatric Psychiatric exam: Normal affect, Normal mood. negative: Agitated, Anxious - Skin Skin exam: Abrasion Course - Reevaluation(s) Reevaluation #1: The HCT was read as no acute changes. Chronic small vessel disease, chronic sinusitis unchanged. 06/04/17 14:34 06/04/17 14:44 No acute process on the Xr's Questionable 3rd finger DIP avulsion. He is not tender over this area. The results were given to the patient and daughter I recommended walker at all times and no driving He is to call his PCP for close follow up 06/04/17 15:01 The BP was noted to be elevated He is asymptomatic He did not take his medication for BP yet today He was advised to take it once home and stay on schedule. Disposition Disposition: Discharge Clinical Impression: Shoulder contusion Qualifiers: Encounter type: initial encounter Laterality: left Qualified Code(s): S40.012A - Contusion of left shoulder, initial encounter Hand contusion Qualifiers: Encounter type: initial encounter Laterality: left Qualified Code(s): S60.222A - Contusion of left hand, initial encounter Disposition: Home, Self-Care Condition: (1) Good Instructions: Fall Prevention for Older Adults (ED) Additional Instructions: Call your doctor for close follow up to discuss this ER visit and your history of falls. Return if worse, new pain, any new concerns. Avoid driving if your balance continues to an issue Use your walker at all times for your balance Forms: Patient Portal Access Time of Disposition: 14:45 Quality - Quality Measures Quality Measures: N/A - Blood Pressure Screening Does Patient Have Any of the Following: No, Active Dx of HTN Blood Pressure Classification: Hypertensive Reading Systolic Measurement: 194 Diastolic Measurement: 106 Screening for High Blood Pressure: < Pre-Hypertensive BP, F/U Documented > [ G8950] Pre-Hypertensive Follow-up Interventions: Referral to alternative/primary care provider.
--- NOTE | 2017-06-05 08:48 | CT SCAN REPORT ---
EXAM: HEAD CT WITHOUT CONTRAST HISTORY: MULTIPLE FALLS IN THE LAST TWO DAYS. NO LOSS OF CONSCIOUSNESS. TECHNIQUE: Contiguous axial images from the cerebral convexities to the foramen magnum were obtained without contrast. Comparison: Head CT 05/05/17. Encounter: Initial. Hand dominance: Right. FINDINGS: Mild generalized atrophy of the brain. No acute intracranial hemorrhage, mass effect, or midline shift. No CT evidence of acute infarct. Mild decreased attenuation in the subcortical and periventricular white matter of the cerebral hemispheres. The ventricles, basal cisterns, and sulci are within normal limits. The osseous structures are unremarkable. Opacification of the left frontal sinus soft tissues are unremarkable. IMPRESSION: 1. NO ACUTE INTRACRANIAL PROCESS. 2. MILD GENERALIZED ATROPHY OF THE BRAIN WITH MILD CHRONIC SMALL VESSEL ISCHEMIC CHANGE. 3. CHRONIC LEFT FRONTAL SINUSITIS. [facility]BER: [id number] [facility]
--- NOTE | 2017-06-05 08:50 | RADIOLOGY REPORT ---
EXAM: LEFT SHOULDER, THREE VIEWS HISTORY: FALL, LEFT SHOULDER INJURY AND PAIN. TECHNIQUE: Three views of the left shoulder were obtained. Comparison: Left shoulder radiograph 12/28/14. Encounter: Initial. FINDINGS: Osteopenia. Moderate arthritic change of the acromioclavicular joint. Mild to moderate arthritic change of the left glenohumeral joint. No glenohumeral joint. No acute fracture or dislocation. IMPRESSION: OSTEOPENIA. ARTHRITIC CHANGE OF THE LEFT SHOULDER. NO ACUTE FRACTURE. JOB NUMBER: [id number] [facility]
--- NOTE | 2017-06-05 08:53 | RADIOLOGY REPORT ---
EXAM: CHEST, TWO VIEWS HISTORY: FALL, LEFT THORACIC PAIN, PAIN WITH INSPIRATION. TECHNIQUE: Two views of the chest were obtained. Comparison: Chest x-ray 12/16/15. Encounter: Initial. FINDINGS: Sternal wires are present. The lungs are clear. The cardiac silhouette and diaphragm are unremarkable. No displaced left rib fractures. IMPRESSION: NO ACUTE INTRATHORACIC PROCESS. JOB NUMBER: [id number] [facility]
--- NOTE | 2017-06-05 09:00 | RADIOLOGY REPORT ---
EXAM: LEFT HAND, THREE VIEWS HISTORY: FALL, LEFT INDEX FINGER INJURY AND PAIN. TECHNIQUE: Three views of the left hand were obtained. Comparison: None. Encounter: Initial. FINDINGS: Osteopenia. There appears to be a nondisplaced fractured osteophyte at the dorsal aspect of the third distal phalanx. Severe arthritic change of the left first carpal metacarpal joint. Moderate arthritic change of the left second and third MCP as well as DIP's. Mild arthritic change of the MIP's. IMPRESSION: 1. ACUTE NONDISPLACED FRACTURE OF A DORSAL OSTEOPHYTE AT THE LEFT THIRD DISTAL PHALANX. 2. MULTIFOCAL ARTHRITIC CHANGE MOST SEVERELY INVOLVING THE LEFT FIRST CARPAL METACARPAL JOINT. JOB NUMBER: [id number] [facility]
== END 2017-06-04 15:02 | disposition home or self-care (01) ==
LOC: ER 13:26
DX: S40.012A Contusion of left shoulder, initial encounter (principal); S60.222A Contusion of left hand, initial encounter; S80.212A Abrasion, left knee, initial encounter; S62.663A Nondisplaced fracture of distal phalanx of left middle finger, initial encounter for closed fracture; J32.1 Chronic frontal sinusitis; R42 Dizziness and giddiness; M54.6 Pain in thoracic spine; I10 Essential (primary) hypertension; I25.2 Old myocardial infarction; Z91.81 History of falling; Z79.4 Long term (current) use of insulin; W18.09XA Striking against other object with subsequent fall, initial encounter; Y92.009 Unspecified place in unspecified non-institutional (private) residence as the place of occurrence of the external cause
CPT/HCPCS: 70450; 71020; 99283; 99284

== ENCOUNTER 2017-07-04 19:24 | Observation (INO) | payer MEDICARE ==
--- NOTE | 2017-07-04 19:48 | Emergency Department Record ---
History of Present Illness - General Chief Complaint: Altered Mental Status Stated Complaint: ALTERED LEVEL OF CONSCIOUS Time Seen by Provider: 07/04/17 19:36 Source: Family, EMS Mode of Arrival: EMS Limitations: No limitations - History of Present Illness Initial Comments: pt was playing bingo w his when he had a decreased loc and confusion which is now improving. pt has dementia but is not at his baseline though he has improved MD Complaint: Altered mental status Onset/Timin -: Minutes(s) Severity: Mild Consistency: Other (improving) Associated Symptoms: Denies other symptoms - Antoine Coma Scale Eye Response: (4) Open spontaneously Motor Response: (6) Obeys commands Verbal Response: (3) Inappropriate words Reymundo Total: 13 - Symptoms of Stroke Symptoms of stroke: Incoherent Speech, Onset of Confusion, Speech Dysfunction, Unable to Think Clearly - Related Data Previous Rx's Medication Instructions Recorded Insulin Aspart [Novolog Flexpen] 12 unit SQ TIDINS #1 ml 05/07/17 Insulin Glargine,Hum.rec.anlog 35 unit SQ BID #0 05/07/17 [Lantus] Tamsulosin HCl [Flomax] 0.4 mg PO QHS cap.er.24h 05/07/17 Allergies Allergy/AdvReac Type Severity Reaction Status Date / Time triamterene [From Dyazide] AdvReac ITCHING Verified 07/04/17 19:38 Travel Screening - Travel/Exposure Within Last 30 Days Have you traveled within the last 30 days?: No - Travel/Exposure Within Last Year Have you traveled outside the [place] in the last year?: No - Additonal Travel Details Have you been exposed to anyone with a communicable illness?: No - Travel Symptoms Symptom Screening: None Review of Systems Reviewed: No additional complaints except as noted below Constitutional: Reports: As per HPI. Denies: Chills, Fever, Malaise, Night sweats, Weakness, Weight change Eyes: Reports: As per HPI. Denies: Eye discharge, Eye pain, Photophobia, Vision change ENT: Reports: As per HPI. Denies: Congestion, Dental pain, Ear pain, Epistaxis , Hearing loss, Throat pain Respiratory: Reports: As per HPI. Denies: Cough, Dyspnea, Hemoptysis, Stridor, Wheezes Cardiovascular: Reports: As per HPI. Denies: Arrhythmia, Chest pain, Dyspnea on exertion, Edema, Murmurs, Orthopnea, Palpitations, Paroxysmal nocturnal dyspnea, Rheumatic Fever, Syncope Endocrine: Reports: As per HPI. Denies: Fatigue, Heat or cold intolerance, Polydipsia, Polyuria Gastrointestinal: Reports: As per HPI. Denies: Abdominal pain, Constipation, Diarrhea, Hematemesis, Hematochezia, Melena, Nausea, Vomiting Genitourinary: Reports: As per HPI. Denies: Dysuria, Frequency, Hematuria, Incontinence, Retention, Testicular pain, Testicular mass, Urgency Musculoskeletal: Reports: As per HPI. Denies: Arthralgia, Back pain, Gout, Joint swelling, Myalgia, Neck pain Skin: Reports: As per HPI. Denies: Bruising, Change in color, Change in hair/ nails, Lesions, Pruritus, Rash Neurological: Reports: As per HPI. Denies: Abnormal gait, Confusion, Headache, Numbness, Paresthesias, Seizure, Tingling, Tremors, Vertigo, Weakness Psychiatric: Reports: As per HPI. Denies: Anxiety, Auditory hallucinations, Depression, Homicidal thoughts, Suicidal thoughts, Visual hallucinations Hematological/Lymphatic: Reports: As per HPI. Denies: Anemia, Blood Clots, Easy bleeding, Easy bruising, Swollen glands Past Medical History - SOCIAL HISTORY Smoking Status: Never smoker Alcohol Use: None Drug Use: None - RESPIRATORY Hx Respiratory Disorders: No - CARDIOVASCULAR Hx Cardio Disorders: Yes Hx Heart Attack: Yes Hx Hypertension: Yes - NEURO Hx Neuro Disorders: No - GI Hx GI Disorders: Yes Hx Reflux: Yes Comment:: bowel obstruction - Hx Genitourinary Disorders: Yes Hx Prostate Problems: Yes - ENDOCRINE Hx Endocrine Disorders: Yes Hx Diabetes: Yes - MUSCULOSKELETAL Hx Musculoskeletal Disorders: Yes Hx Arthritis: Yes - PSYCH Hx Psych Problems: No - HEMATOLOGY/ONCOLOGY Hx Hematology/Oncology Disorders: Yes Hx Cancer: Yes (Colon) Hx Chemotherapy: No Hx Radiation Therapy: Yes Family Medical History Any Significant Family History?: No Hx Heart Disease: Mother Physical Exam - General General Appearance: Alert, Cooperative, Mild distress - Head Head exam: Normal inspection - Eye Eye exam: Normal appearance, PERRL, EOMI Pupils: Normal accommodation - ENT ENT exam: Normal exam, Mucous membranes moist, Normal external ear exam, Normal orophraynx Ear exam: Normal external inspection. negative: External canal tenderness Nasal Exam: Normal inspection. negative: Discharge, Sinus tenderness Mouth exam: Normal external inspection, Tongue normal Teeth exam: Normal inspection. negative: Dental caries Throat exam: Normal inspection. negative: Tonsillar erythema, Tonsillar exudate - Neck Neck exam: Normal inspection, Full ROM. negative: Tenderness - Respiratory Respiratory exam: Normal lung sounds bilaterally. negative: Respiratory distress - Cardiovascular Cardiovascular Exam: Regular rate, Normal rhythm, Normal heart sounds - GI/Abdominal GI/Abdominal exam: Soft, Normal bowel sounds. negative: Tenderness - Rectal Rectal exam: Deferred - exam: Deferred - Extremities Extremities exam: Normal inspection, Full ROM, Normal capillary refill. negative: Tenderness - Back Back exam: Reports: Normal inspection, Full ROM. Denies: Muscle spasm, Rash noted, Tenderness - Neurological Neurological exam: Alert, Altered (mildly), CN II-XII intact, Normal gait - Psychiatric Psychiatric exam: Normal affect, Normal mood - Skin Skin exam: Dry, Intact, Normal color, Warm Course Vital Signs 07/04/17 19:32 Temperature 97.8 F Pulse Rate 83 Respiratory 20 Rate Blood Pressure 132/99 Pulse Ox 95 - Reevaluation(s) Reevaluation #1: 07/05/17 00:22 pt is confused and agitated. family states he is not back to his baseline, that he usually recognizes them and now he doesnt. he is alert but confused. transfer was offered to who refused and wants him to stay here Medical Decision Making - Lab Data Result diagrams: 07/04/17 19:25 07/04/17 19:25 Disposition Disposition: Admit Clinical Impression: Confusion associated with infection UTI (urinary tract infection) Qualifiers: Urinary tract infection type: urethritis Qualified Code(s): N34.2 - Other urethritis Disposition: Still a Patient at [facility] Decision to Admit: Admit from ER Decision to Admit Date: 07/05/17 Decision to Admit Time: 00:27 Forms: Patient Portal Access Quality - Quality Measures Quality Measures: N/A - Blood Pressure Screening Does Patient Have Any of the Following: Active Dx of HTN Blood Pressure Classification: Hypertensive Reading Systolic Measurement: 132 Diastolic Measurement: 99 Screening for High Blood Pressure: Patient Exclusion, Hx of HTN [[id number]]
[2017-07-04 19:50] LABS: BASO % 0.3 % (0-6); EOS % 1.9 % (0-6); GRAN % 69.3 % (47-80); HEMATOCRIT 47.5 % (42.0-52.0); LYMPH % 21.6 % (16-45); MEAN CELL VOLUME 85.6 fl (81-97); MEAN CORPUSCULAR HEMOGLOBIN 28.8 pg (27-33); MEAN CORPUSCULAR HGB CONC 33.7 g/dl (32-36); MONO % 6.9 % (0-9); PLATELET COUNT 400 K/uL (130-400); RED BLOOD COUNT 5.55 M/uL (4.40-5.70)
[2017-07-04 20:03] LABS: BILIRUBIN,TOTAL 0.4 mg/dL (0.2-1.0); CREATININE 1.3 mg/dL (0.7-1.2)
[2017-07-04 20:04] LABS: TOTAL PROTEIN 6.8 g/dL (6.6-8.7)
[2017-07-04 20:08] LABS: ALB/GLOB RATIO 1.3 (1.1-1.8); ALBUMIN 3.8 g/dL (4.0-5.0)
[2017-07-04 22:07] LABS: URINE APPEARANCE CLEAR; URINE BILIRUBIN NEGATIVE (NEGATIVE); URINE BLOOD TRACE-I (NEGATIVE); URINE COLOR YELLOW; URINE KETONE TRACE (NEGATIVE); URINE LEUKOCYTE ESTERASE SMALL (NEGATIVE); URINE NITRITE NEGATIVE (NEGATIVE); URINE PROTEIN TRACE (NEGATIVE); URINE UROBILINOGEN 0.2 E.U./dL (0.20 - 1.00)
[2017-07-04 22:22] LABS: URINE BACTERIA FEW; URINE EPITHELIAL CELLS 0 - 2 (FEW)
[2017-07-04] MEDS ORDERED: CIPROFLOXACIN LACTATE/D5W 400 MG/200 ML BAG IVPB ONE (22:42)
[2017-07-04] MEDS ORDERED: LORAZEPAM 2 MG/ML VIAL IV ONE (23:18)
[2017-07-05] MEDS ORDERED: DEXTROSE 50 % IVP 50 ML DISP.SYRIN IVP ONE (00:27)
[2017-07-05] MEDS ORDERED: ACETAMINOPHEN 500 MG TABLET PO PRN (00:59)
[2017-07-05 06:28] LABS: HEMATOCRIT 51.8 % (42.0-52.0); HEMOGLOBIN 17.6 gm/dl (14.0-18.0); MEAN CELL VOLUME 84.5 fl (81-97); MEAN CORPUSCULAR HEMOGLOBIN 28.7 pg (27-33); MEAN PLATELET VOLUME 10.8 fl (7.4-10.4); PLATELET COUNT 317 K/uL (130-400); RED BLOOD COUNT 6.13 M/uL (4.40-5.70); RED CELL DISTRIBUTION WIDTH 14.1 % (11.5-14.5); WHITE BLOOD COUNT W/O DIFF 13.8 K/uL (4.2-12.2)
[2017-07-05] MEDS: PANTOPRAZOLE SODIUM 40 MG TABLET PO SCH (06:46)
[2017-07-05 06:57] LABS: BLOOD UREA NITROGEN 19 mg/dL (8-23); CREATININE 1.1 mg/dL (0.7-1.2); EST GLOMERULAR FILTRATION RATE > 60 mL/min; GLUCOSE,RANDOM 250 mg/dL (74-109)
--- NOTE | 2017-07-05 07:23 | CT SCAN REPORT ---
EXAM: HEAD CT WITHOUT CONTRAST HISTORY: SYNCOPE, CONFUSION, DIABETIC. TECHNIQUE: Contiguous axial images from the cerebral convexities to the foramen magnum were obtained without contrast. Comparison: Head CT 06/04/17. Encounter: Initial. Hand dominance: Right. FINDINGS: Mildly compromised due to motion artifact and beam hardening artifact. Mild generalized atrophy of the brain. No acute intracranial hemorrhage, mass effect, or midline shift. Mild to moderate decreased attenuation in the subcortical and periventricular white matter of the cerebral hemispheres. No CT evidence of acute infarct. The ventricles, basal cisterns, and sulci are within normal limits. Extensive mucosal thickening in the maxillary sinuses and left frontal sinus. Mucosal thickening in the ethmoid air cells. The osseous structures and soft tissues are unremarkable. IMPRESSION: 1. NO ACUTE INTRACRANIAL PROCESS WITH NO CHANGE. 2. MILD GENERALIZED ATROPHY OF THE BRAIN WITH MILD TO MODERATE CHRONIC SMALL VESSEL ISCHEMIC CHANGE. 3. CHRONIC LEFT FRONTAL AND MAXILLARY SINUSITIS. JOB NUMBER: [id number] MTDD
--- NOTE | 2017-07-05 09:57 | History & Physical ---
History of Present Illness - Date of Service Date of Service for History & Physical: 07/05/17 - History of Present Illness Admitting Diagnosis: confusion, uti History of Present Illness: Mr. Salcedo is an 87 y/o male who presents with acute change in mentation beginning yesterday evening while playing bingo with family and friends yesterday evening. His says that he was very confused and not able to recognize anyone in the room. He later became very agitated and combative. They deny complaint of headache, vision changes, vomiting, chest pain or syncopal episode. The patient has a recent history of declining cognitive function, failure to thrive and, memory deficits. His daughter notes that there has been some compliance issues with his medications and that he often mixes up his doses of medications or does not take them at all. On arrival to the ED the patient was combative, remained confused and not oriented to person or place. Initial workup did show a UTI with positive leukocytes, glucosuria, trace ketones and proteins. CT head w/o contrast shows mild to moderate chronic small vessel changes but no acute infarct identified. On bedside examination this morning the patient is very lethargic, and not able to meaningfully participate in H&P. His daughter and are at bedside and note that he has been sleeping all night since being given Ativan in the ED. Travel Screening - Travel/Exposure Within Last 30 Days Have you traveled within the last 30 days?: No - Travel/Exposure Within Last Year Have you traveled outside the [place] in the last year?: No - Additonal Travel Details Have you been exposed to anyone with a communicable illness?: No - Travel Symptoms Symptom Screening: None Review of Systems ROS unobtainable: Due to mental status Constitutional: Reports: As per HPI. Denies: Chills, Fever, Malaise, Night sweats, Weakness, Weight change Eyes: Reports: As per HPI. Denies: Eye discharge, Eye pain, Photophobia, Vision change ENT: Reports: As per HPI. Denies: Congestion, Dental pain, Ear pain, Epistaxis , Hearing loss, Throat pain Respiratory: Reports: As per HPI. Denies: Cough, Dyspnea, Hemoptysis, Stridor, Wheezes Cardiovascular: Reports: As per HPI. Denies: Arrhythmia, Chest pain, Dyspnea on exertion, Edema, Murmurs, Orthopnea, Palpitations, Paroxysmal nocturnal dyspnea, Rheumatic Fever, Syncope Endocrine: Reports: As per HPI. Denies: Fatigue, Heat or cold intolerance, Polydipsia, Polyuria Gastrointestinal: Reports: As per HPI. Denies: Abdominal pain, Constipation, Diarrhea, Hematemesis, Hematochezia, Melena, Nausea, Vomiting Genitourinary: Reports: As per HPI. Denies: Dysuria, Frequency, Hematuria, Incontinence, Retention, Testicular pain, Testicular mass, Urgency Musculoskeletal: Reports: As per HPI. Denies: Arthralgia, Back pain, Gout, Joint swelling, Myalgia, Neck pain Skin: Reports: As per HPI. Denies: Bruising, Change in color, Change in hair/ nails, Lesions, Pruritus, Rash Neurological: Reports: As per HPI, Confusion. Denies: Abnormal gait, Headache, Numbness, Paresthesias, Seizure, Tingling, Tremors, Vertigo, Weakness Psychiatric: Reports: As per HPI. Denies: Anxiety, Auditory hallucinations, Depression, Homicidal thoughts, Suicidal thoughts, Visual hallucinations Hematological/Lymphatic: Reports: As per HPI. Denies: Anemia, Blood Clots, Easy bleeding, Easy bruising, Swollen glands Past Medical History - SOCIAL HISTORY Smoking Status: Never smoker Alcohol Use: None Drug Use: None - RESPIRATORY Hx Respiratory Disorders: No - CARDIOVASCULAR Hx Cardio Disorders: Yes Hx Heart Attack: Yes Hx Hypertension: Yes - NEURO Hx Neuro Disorders: No - GI Hx GI Disorders: Yes Hx Reflux: Yes Comment:: bowel obstruction - Hx Genitourinary Disorders: Yes Hx Prostate Problems: Yes - ENDOCRINE Hx Endocrine Disorders: Yes Hx Diabetes: Yes - MUSCULOSKELETAL Hx Musculoskeletal Disorders: Yes Hx Arthritis: Yes - PSYCH Hx Psych Problems: No - HEMATOLOGY/ONCOLOGY Hx Hematology/Oncology Disorders: Yes Hx Cancer: Yes (Colon) Hx Chemotherapy: No Hx Radiation Therapy: Yes Family Medical History Any Significant Family History?: No Hx Heart Disease: Mother H&P Meds/Allergies - Allergies Allergies: Allergies Allergy/AdvReac Type Severity Reaction Status Date / Time triamterene [From Dyazide] AdvReac ITCHING Verified 07/04/17 19:38 - Home Medications Home Medications Medication Instructions Recorded Confirmed Last Taken Ergocalciferol (Vitamin D2) 50,000 unit PO WEEKLY 07/05/17 07/05/17 Unknown [Vitamin D2] Previous Rx's Medication Instructions Recorded Insulin Aspart [Novolog Flexpen] 12 unit SQ TIDINS #1 ml 05/07/17 Insulin Glargine,Hum.rec.anlog 35 unit SQ BID #0 05/07/17 [Lantus] Tamsulosin HCl [Flomax] 0.4 mg PO QHS cap.er.24h 05/07/17 - Active Medications Active Medications: Current Medications Acetaminophen (Tylenol 500mg Tab) 1,000 mg PO Q6H PRN PRN Reason: PAIN/TEMP Aspirin (Aspirin, Regular) 325 mg PO DAILY [facility] Carvedilol (Coreg) 6.25 mg PO BID [facility] Duloxetine HCl (Cymbalta) 60 mg PO DAILY [facility] Non-Formulary Medication (Felodipine [Felodipine Er]) 10 mg PO DAILY [facility] Pantoprazole [facility] ([facility]ix) [facility] Last Admin: 07/05/17 06:46 Dose: Not Given Simvastatin (Zocor) 40 mg PO QHS [facility] Physical Exam - Vital Signs Vital Signs: Vital Signs - Last 24 Hrs Temp Pulse Resp BP Pulse Ox 07/05/17 06:00 102 H 18 163/103 96 07/05/17 01:43 97.5 F L 83 20 151/80 100 - General General Appearance: Alert, Cooperative, Mild distress Limitations: No limitations - Head Head exam: Normal inspection - Eye Eye exam: Normal appearance, PERRL, EOMI Pupils: Normal accommodation - ENT ENT exam: Normal exam, Mucous membranes moist, Normal external ear exam, Normal orophraynx Ear exam: Normal external inspection. negative: External canal tenderness Nasal Exam: Normal inspection. negative: Discharge, Sinus tenderness Mouth exam: Normal external inspection, Tongue normal Teeth exam: Normal inspection. negative: Dental caries Throat exam: Normal inspection. negative: Tonsillar erythema, Tonsillar exudate - Neck Neck exam: Normal inspection, Full ROM. negative: Tenderness - Respiratory Respiratory exam: Normal lung sounds bilaterally. negative: Respiratory distress - Cardiovascular Cardiovascular Exam: Regular rate, Normal rhythm, Normal heart sounds Peripheral Pulses: 2+: Radial (R), Radial (L), Dorsalis Pedis (R), Dorsalis Pedis (L) - GI/Abdominal GI/Abdominal exam: Soft, Normal bowel sounds. negative: Tenderness - Rectal Rectal exam: Deferred - exam: Deferred - Extremities Extremities exam: Normal inspection, Full ROM, Normal capillary refill. negative: Tenderness - Back Back exam: Reports: Normal inspection, Full ROM. Denies: Muscle spasm, Rash noted, Tenderness - Neurological Neurological exam: Alert, Altered (pt is lethargic and not able to answer questions appropriately. ), Reflexes normal. negative: Motor sensory deficit, Oriented X3 - Psychiatric Psychiatric exam: Normal affect, Normal mood - Skin Skin exam: Dry, Intact, Normal color, Warm Results - Labs Result Diagrams: 07/05/17 06:13 07/05/17 06:37 Labs Last 24 Hours: Laboratory Results - last 24 hr 07/05/17 07/05/17 06:13 06:37 WBC 13.8 H RBC 6.13 H Hgb 17.6 Hct 51.8 MCV 84.5 MCH 28.7 MCHC 34.0 RDW 14.1 Plt Count 317 MPV 10.8 H Neutrophils % 88.0 H Band Neutrophils % 0.0 Eosinophils % Not Reportable Basophils % Not Reportable Lymphocytes 7.0 L Monocytes 5.0 Basophils 0.0 Eosinophil Count 0.0 Sodium 137 Potassium 3.6 Chloride 97 L Carbon Dioxide 20.0 L Anion Gap 20.0 H BUN 19 Creatinine 1.1 Estimated GFR > 60 Random Glucose 250 H Calcium 9.5 VTE H&P Assessment - Risk for VTE Risk for VTE: Yes Risk Level: High Risk Assessment Date: 07/05/17 Risk Assessment Time: 10:11 VTE Orders Placed or Will Be Placed: Yes Plan - Inpatient Certification Inpatient Certification: Admit to inpatient care: Based on my medical assessment, after consideration of patient's risk factors (age, co-morbidities and patient presenting symptoms and acuity), I expect that this patient will remain in the hospital greater than or equal to two midnights and that the services needed warrant inpatient care because: Patient Risk Factors: Fall/AMS Estimated length of stay: 48 hours The patient may reasonably be expected to be discharged or transferred to a hospital within 96 hours after admission to [facility]. Services needed: PT/OT, SW I certify that my determination is in accordance with my understanding of Medicare requirements for reasonable and necessary inpatient services. - Detailed Diagnosis and Plan (1) Altered mental status Current Visit: Yes Status: Acute Base Code: R41.82 - ALTERED MENTAL STATUS, UNSPECIFIED Comment: -etiology unclear, DDx: polypharmacy, infection, CVA - CT head negative for acute infarct. Carotid dopplers pending, tele monitor - on Ciprofloxacin for UTI, cont - avoid benzodiazepines or sedative/hypnotics - fall/aspiration precautions, accuchecks/glycemic control (2) Depression Current Visit: Yes Status: Acute Base Code: F32.9 - MAJOR DEPRESSIVE DISORDER, SINGLE EPISODE, UNSPECIFIED Comment: - hx of depression on cymbalta. Resume medication at home dose of 60mg QD (3) Hx of CABG Current Visit: Yes Status: Acute Base Code: Z95.1 - PRESENCE OF AORTOCORONARY BYPASS GRAFT Comment: - resume Coreg 6.125mg BID, Simvastatin 40mg QD, ASA 325mg (4) UTI (urinary tract infection) Current Visit: Yes Status: Acute Qualifiers: Urinary tract infection type: urethritis Qualified Code(s): N34.2 - Other urethritis Base Code: N39.0 - URINARY TRACT INFECTION, SITE NOT SPECIFIED Comment: - WBCs 6-10, leuokocyte esterases - cont Ciprofloxacin x 2 more days (5) Hyperglycemia due to type 2 diabetes mellitus Current Visit: No Status: Acute Base Code: E11.65 - TYPE 2 DIABETES MELLITUS WITH HYPERGLYCEMIA Comment: - poorly controlled due to non- compliance - random glucose on admission 67, got 1 amp D50 - CBG 250, on Lantus 35 units BID and Novolog 12 units at home - substitute with Levemir 35 units daily, Novolog low dose sliding scale - pt PO intake minimal, IVF Nacl 0.9% KVO at 50 cc/hr, Diabetic/Cardiac diet. (6) Hypertension Current Visit: No Status: Acute Base Code: I10 - ESSENTIAL (PRIMARY) HYPERTENSION Comment: - substitute Felodipine 10 mg w/ Amlodipine 5mg, resume Coreg 6.125mg w/ holding parameters SBP < 120, HR < 55 (7) DVT prophylaxis Current Visit: Yes Status: Acute Base Code: [id number] - Comment: - Lovenox 40mg SQ QD (8) Full code status Current Visit: No Status: Acute Base Code: Z78.9 - OTHER SPECIFIED HEALTH STATUS Comment: - FULL CODE - will discuss with family today.
[2017-07-05] MEDS ORDERED: AMLODIPINE BESYLATE 5MG TAB PO SCH (10:00)
[2017-07-05] MEDS ORDERED: LEVEMIR FLEXTOUCH 100 UNIT/ML INSULIN PEN SQ SCH (10:15)
[2017-07-05] MEDS: ASPIRIN 325 MG TABLET PO SCH (10:43)
[2017-07-05] MEDS: CARVEDILOL 3.125 MG TABLET PO SCH ×2 (10:49→22:12)
[2017-07-05] MEDS: DULOXETINE HCL 30 MG CAPSULE.DR PO SCH (10:50)
[2017-07-05] MEDS: AMLODIPINE BESYLATE 5MG TAB PO SCH (10:51)
[2017-07-05] MEDS: ENOXAPARIN 40 MG/0.4 ML SYR SQ SCH (10:59)
[2017-07-05] MEDS: 0.9 % SODIUM CHLORIDE 1000ML 1,000 ML IV SCH (13:42)
[2017-07-05] MEDS: CIPROFLOXACIN HCL 250 MG TABLET PO SCH ×2 (13:46→22:12)
[2017-07-05] MEDS: NOVOLOG FLEXPEN (INSULIN ASPART) 100 UNITS/ML SQ SCH ×2 (14:22→18:05)
[2017-07-05] MEDS ORDERED: HALOPERIDOL LACTATE 5 MG/ML VIAL IM PRN (16:50)
[2017-07-05] MEDS ORDERED: SIMVASTATIN 20 MG TABLET PO SCH (22:00)
[2017-07-06] MEDS: PANTOPRAZOLE SODIUM 40 MG TABLET PO SCH (06:20)
[2017-07-06 06:58] LABS: BASO % 0.1 % (0-6); EOS % 1.3 % (0-6); GRAN % 71.3 % (47-80); HEMATOCRIT 46.1 % (42.0-52.0); HEMOGLOBIN 15.5 gm/dl (14.0-18.0); LYMPH % 18.8 % (16-45); MEAN CELL VOLUME 85.8 fl (81-97); MEAN CORPUSCULAR HEMOGLOBIN 28.9 pg (27-33); MEAN CORPUSCULAR HGB CONC 33.6 g/dl (32-36); MEAN PLATELET VOLUME 10.5 fl (7.4-10.4); MONO % 8.5 % (0-9); PLATELET COUNT 293 K/uL (130-400); RED BLOOD COUNT 5.37 M/uL (4.40-5.70); RED CELL DISTRIBUTION WIDTH 14.3 % (11.5-14.5)
--- NOTE | 2017-07-06 07:10 | Physician Progress Note ---
Subjective - Date Date of Physician Progress Note: 07/06/17 - Subjective Subjective Comment: The patient's mental status is much improved this morning. He is awake, alert and cooperative with examination. He is still very confused with obvious memory deficits and hearing impairment. Objective - Vital Signs Vital Signs: Vital Signs - Last 24 Hrs Temp Pulse Pulse Resp BP BP Pulse Ox 07/06/17 06:00 97.6 F 71 18 116/58 07/06/17 02:00 97.9 F 66 68 18 128/72 98 07/05/17 22:00 97.6 F 76 72 20 134/75 98 07/05/17 20:23 70 70 20 07/05/17 18:00 98.4 F 80 18 140/80 97 07/05/17 14:00 97.2 F L 86 18 147/81 97 07/05/17 11:46 97.5 F L 163/103 07/05/17 10:00 98 F 101 H 16 145/88 96 - General General Appearance: Alert, Cooperative, Mild distress Limitations: No limitations - Head Head exam: Normal inspection - Eye Eye exam: Normal appearance, PERRL, EOMI Pupils: Normal accommodation - ENT ENT exam: Normal exam, Mucous membranes moist, Normal external ear exam, Normal orophraynx Ear exam: Normal external inspection, Other (patient is hard of hearing ). negative: External canal tenderness Nasal Exam: Normal inspection. negative: Discharge, Sinus tenderness Mouth exam: Normal external inspection, Tongue normal Teeth exam: Normal inspection. negative: Dental caries Throat exam: Normal inspection. negative: Tonsillar erythema, Tonsillar exudate - Neck Neck exam: Normal inspection, Full ROM. negative: Tenderness - Respiratory Respiratory exam: Normal lung sounds bilaterally. negative: Respiratory distress - Cardiovascular Cardiovascular Exam: Regular rate, Normal rhythm, Normal heart sounds Peripheral Pulses: 2+: Radial (R), Radial (L), Dorsalis Pedis (R), Dorsalis Pedis (L) - GI/Abdominal GI/Abdominal exam: Soft, Normal bowel sounds. negative: Tenderness - Rectal Rectal exam: Deferred - exam: Deferred - Extremities Extremities exam: Normal inspection, Full ROM, Normal capillary refill. negative: Tenderness - Back Back exam: Reports: Normal inspection, Full ROM. Denies: Muscle spasm, Rash noted, Tenderness - Neurological Neurological exam: Alert, Altered, CN II-XII intact, Other (still has memory deficits ). negative: Motor sensory deficit, Oriented X3 - Psychiatric Psychiatric exam: Normal affect, Normal mood - Skin Skin exam: Dry, Intact, Normal color, Warm Assessment and Plan - Assessment and Plan (1) Altered mental status Current Visit: Yes Status: Acute Base Code: R41.82 - ALTERED MENTAL STATUS, UNSPECIFIED Comment: -etiology unclear, DDx: polypharmacy, infection - pt's mental status has improved since evaluation yesterday. He is now awake,alert and able to answer some questions appropriately. - CT head negative for acute infarct. Cont tele monitoring - avoid benzodiazepines or sedative/hypnotics - fall/aspiration precautions, accuchecks/glycemic control (2) Depression Current Visit: Yes Status: Acute Base Code: F32.9 - MAJOR DEPRESSIVE DISORDER, SINGLE EPISODE, UNSPECIFIED Comment: - hx of depression on cymbalta. Resume medication at home dose of 60mg QD (3) Hx of CABG Current Visit: Yes Status: Acute Base Code: Z95.1 - PRESENCE OF AORTOCORONARY BYPASS GRAFT Comment: - resume Coreg 6.125mg BID, Simvastatin 40mg QD, ASA 325mg (4) UTI (urinary tract infection) Current Visit: Yes Status: Acute Qualifiers: Urinary tract infection type: urethritis Qualified Code(s): N34.2 - Other urethritis Base Code: N39.0 - URINARY TRACT INFECTION, SITE NOT SPECIFIED Comment: - WBCs 6-10, leuokocyte esterases - cont Ciprofloxacin x 2 more days (5) Hyperglycemia due to type 2 diabetes mellitus Current Visit: No Status: Acute Base Code: E11.65 - TYPE 2 DIABETES MELLITUS WITH HYPERGLYCEMIA Comment: - poorly controlled due to non-compliance , serum glucose 76 - random glucose on admission 67, got 1 amp D50 - CBG 250, on Lantus 35 units BID and Novolog 12 units at home - substitute with Levemir 35 units daily, Novolog low dose sliding scale - pt PO intake minimal, IVF Nacl 0.9% KVO at 50 cc/hr, Diabetic/Cardiac diet. (6) Hypertension Current Visit: No Status: Acute Base Code: I10 - ESSENTIAL (PRIMARY) HYPERTENSION Comment: - substitute Felodipine 10 mg w/ Amlodipine 5mg, resume Coreg 6.125mg w/ holding parameters SBP < 120, HR < 55 (7) DVT prophylaxis Current Visit: Yes Status: Acute Base Code: [id number] - Comment: - Lovenox 40mg SQ QD (8) Full code status Current Visit: No Status: Acute Base Code: Z78.9 - OTHER SPECIFIED HEALTH STATUS Comment: - FULL CODE - will discuss with family today. - Disposition Disposition: If mentation improves likely d/c today with follow up with PCP. Results - Labs Result Diagrams: 07/06/17 06:43 07/06/17 06:43 Labs Last 24 Hours: Laboratory Results - last 24 hr 07/05/17 07/05/17 07/05/17 07:30 11:30 12:48 WBC RBC Hgb Hct MCV MCH MCHC RDW Plt Count MPV Gran % Lymphocytes % Monocytes % Eosinophils % Basophils % POC Glucose Cancelled Cancelled 368 H Ammonia Vitamin B12 07/05/17 07/05/17 07/05/17 17:00 17:19 22:00 WBC RBC Hgb Hct MCV MCH MCHC RDW Plt Count MPV Gran % Lymphocytes % Monocytes % Eosinophils % Basophils % POC Glucose Cancelled 184 H 115 H Ammonia Vitamin B12 07/06/17 07/06/17 06:43 06:43 WBC 8.0 RBC 5.37 Hgb 15.5 Hct 46.1 MCV 85.8 MCH 28.9 MCHC 33.6 RDW 14.3 Plt Count 293 MPV 10.5 H Gran % 71.3 Lymphocytes % 18.8 Monocytes % 8.5 Eosinophils % 1.3 Basophils % 0.1 POC Glucose Ammonia Cancelled Vitamin B12 Cancelled DVT/PE Assessment - Risk for VTE Risk for VTE: No Risk Level: High Risk Assessment Date: 07/05/17 Risk Assessment Time: 10:11 VTE Orders Placed or Will Be Placed: Yes - Active Medicaitons Current Medications: Current Medications Acetaminophen (Tylenol 500mg Tab) 1,000 mg PO Q6H PRN PRN Reason: PAIN/TEMP Amlodipine Besylate (Norvasc) 10 mg PO DAILY [facility] Last Admin: 07/05/17 10:51 Dose: 10 mg Aspirin (Aspirin, Regular) 325 mg PO DAILY [facility] Last Admin: 07/05/17 10:43 Dose: 325 mg Carvedilol (Coreg) 6.25 mg PO BID [facility] Last Admin: 07/05/17 22:12 Dose: 6.25 mg Ciprofloxacin (Cipro) 250 mg PO Q12H [facility] Last Admin: 07/05/17 22:12 Dose: 250 mg Duloxetine HCl (Cymbalta) 60 mg PO DAILY [facility] Last Admin: 07/05/17 10:50 Dose: 60 mg Enoxaparin Sodium (Lovenox) 40 mg SQ DAILY [facility] Last Admin: 07/05/17 10:59 Dose: 40 mg Haloperidol Lactate (Haldol) 0.5 mg IM Q8H PRN PRN Reason: Agitation Sodium Chloride () 1,000 mls @ 50 mls/hr IV .Q20H [facility] Last Admin: 07/05/17 13:42 Dose: 50 mls/hr Insulin Aspart (Novolog Flexpen) 1 unit SQ TIDINS [facility] PRN Reason: Protocol Last Admin: 07/05/17 18:05 Dose: Not Given Insulin Detemir (Levemir Flextouch) 35 unit SQ NOW [facility] Last Admin: 07/05/17 11:16 Dose: 35 unit Pantoprazole Sodium (Protonix) 40 mg PO DAILYAC [facility] Last Admin: 07/06/17 06:20 Dose: 40 mg Simvastatin (Zocor) 40 mg PO QHS [facility] Last Admin: 07/05/17 22:12 Dose: 40 mg AMI Plan - Labs Result Diagrams: 07/06/17 06:43 07/06/17 06:43
[2017-07-06 07:16] LABS: BLOOD UREA NITROGEN 22 mg/dL (8-23); CREATININE 1.1 mg/dL (0.7-1.2); EST GLOMERULAR FILTRATION RATE > 60 mL/min; GLUCOSE,RANDOM 76 mg/dL (74-109)
[2017-07-06 07:30] LABS: THYROID STIMULATING HORMONE 2.88 uIU/mL (0.270-4.20)
[2017-07-06] MEDS: NOVOLOG FLEXPEN (INSULIN ASPART) 100 UNITS/ML SQ SCH ×2 (08:39→12:26)
[2017-07-06] MEDS: CARVEDILOL 3.125 MG TABLET PO SCH (09:56)
[2017-07-06] MEDS: ENOXAPARIN 40 MG/0.4 ML SYR SQ SCH (09:56)
[2017-07-06] MEDS: AMLODIPINE BESYLATE 5MG TAB PO SCH (09:57)
[2017-07-06] MEDS: ASPIRIN 325 MG TABLET PO SCH (09:57)
[2017-07-06] MEDS: DULOXETINE HCL 30 MG CAPSULE.DR PO SCH (09:57)
[2017-07-06] MEDS: CIPROFLOXACIN HCL 250 MG TABLET PO SCH (10:00)
[2017-07-06] MEDS: 0.9 % SODIUM CHLORIDE 1000ML 1,000 ML IV SCH (10:04)
--- NOTE | 2017-07-06 15:36 | Discharge Summary ---
Providers Discharge Summary Date: 07/06/17 Date of admission: 07/05/17 00:51 Attending physician: Benjamin Palmer Primary care physician: MARISELA DELEON D.O. Physical Exam - Vital Signs Vital Signs: Vital Signs - Last 24 Hrs Temp Pulse Pulse Resp BP Pulse Ox 07/06/17 14:00 97.3 F L 60 18 139/86 99 07/06/17 09:33 97.7 F 64 18 150/78 94 L 07/06/17 09:00 70 18 07/06/17 06:00 97.6 F 71 18 116/58 07/06/17 02:00 97.9 F 66 68 18 128/72 98 07/05/17 22:00 97.6 F 76 72 20 134/75 98 07/05/17 20:23 70 70 20 07/05/17 18:00 98.4 F 80 18 140/80 97 - General General Appearance: Alert, Cooperative, Mild distress Limitations: No limitations - Head Head exam: Atraumatic, Normocephalic, Normal inspection Head exam detail: negative: Abrasion, Contusion - Eye Eye exam: Normal appearance, PERRL, EOMI Pupils: Normal accommodation - ENT ENT exam: Normal exam, Mucous membranes moist, Normal external ear exam, Normal orophraynx Ear exam: Normal external inspection, Other (patient is hard of hearing ). negative: External canal tenderness Nasal Exam: Normal inspection. negative: Discharge, Sinus tenderness Mouth exam: Normal external inspection, Tongue normal Teeth exam: Normal inspection. negative: Dental caries Throat exam: Normal inspection. negative: Tonsillar erythema, Tonsillar exudate - Neck Neck exam: Normal inspection, Full ROM. negative: Tenderness - Respiratory Respiratory exam: Normal lung sounds bilaterally. negative: Respiratory distress - Cardiovascular Cardiovascular Exam: Regular rate, Normal rhythm, Normal heart sounds Peripheral Pulses: 2+: Radial (R), Radial (L), Dorsalis Pedis (R), Dorsalis Pedis (L) - GI/Abdominal GI/Abdominal exam: Soft, Normal bowel sounds. negative: Tenderness - Rectal Rectal exam: Deferred - exam: Deferred - Extremities Extremities exam: Normal inspection, Full ROM, Normal capillary refill. negative: Tenderness - Back Back exam: Reports: Normal inspection, Full ROM. Denies: Muscle spasm, Rash noted, Tenderness - Neurological Neurological exam: Alert, Altered, CN II-XII intact, Other (still has memory deficits ). negative: Motor sensory deficit, Oriented X3 - Psychiatric Psychiatric exam: Normal affect, Normal mood - Skin Skin exam: Dry, Intact, Normal color, Warm Hospitalization - Hospitalization Admission Diagnosis: confusion, uti - Problem List/Discharge Diagnosis (1) Altered mental status Current Visit: Yes Status: Acute Base Code: R41.82 - ALTERED MENTAL STATUS, UNSPECIFIED Comment: -etiology unclear, DDx: polypharmacy, infection - pt's mental status has improved since evaluation yesterday. He is now awake,alert and able to answer some questions appropriately. - CT head negative for acute infarct. Cont tele monitoring - avoid benzodiazepines or sedative/hypnotics - fall/aspiration precautions, accuchecks/glycemic control (2) Depression Current Visit: Yes Status: Acute Base Code: F32.9 - MAJOR DEPRESSIVE DISORDER, SINGLE EPISODE, UNSPECIFIED Comment: - hx of depression on cymbalta. Resume medication at home dose of 60mg QD (3) Hx of CABG Current Visit: Yes Status: Acute Base Code: Z95.1 - PRESENCE OF AORTOCORONARY BYPASS GRAFT Comment: - resume Coreg 6.125mg BID, Simvastatin 40mg QD, ASA 325mg (4) UTI (urinary tract infection) Current Visit: Yes Status: Acute Discharge Diagnosis: Urinary tract infection type: urethritis Qualified Code(s): N34.2 - Other urethritis Base Code: N39.0 - URINARY TRACT INFECTION, SITE NOT SPECIFIED Comment: - WBCs 6-10, leuokocyte esterases - cont Ciprofloxacin x 2 more days (5) Hyperglycemia due to type 2 diabetes mellitus Current Visit: No Status: Acute Base Code: E11.65 - TYPE 2 DIABETES MELLITUS WITH HYPERGLYCEMIA Comment: - poorly controlled due to non-compliance , serum glucose 76 - random glucose on admission 67, got 1 amp D50 - CBG 250, on Lantus 35 units BID and Novolog 12 units at home - substitute with Levemir 35 units daily, Novolog low dose sliding scale - pt PO intake minimal, IVF Nacl 0.9% KVO at 50 cc/hr, Diabetic/Cardiac diet. (6) Hypertension Current Visit: No Status: Acute Base Code: I10 - ESSENTIAL (PRIMARY) HYPERTENSION Comment: - substitute Felodipine 10 mg w/ Amlodipine 5mg, resume Coreg 6.125mg w/ holding parameters SBP < 120, HR < 55 (7) DVT prophylaxis Current Visit: Yes Status: Acute Base Code: [id number] - Comment: - Lovenox 40mg SQ QD (8) Full code status Current Visit: No Status: Acute Base Code: Z78.9 - OTHER SPECIFIED HEALTH STATUS Comment: - FULL CODE - will discuss with family today. - Disposition If mentation improves likely d/c today with follow up with PCP. - Hospitalization Course Hospital Course: Mr. Salcedo is an 87 y/o male who presents with acute change in mentation beginning yesterday evening while playing bingo with family and friends yesterday evening. His says that he was very confused and not able to recognize anyone in the room. He later became very agitated and combative. They deny complaint of headache, vision changes, vomiting, chest pain or syncopal episode. The patient has a recent history of declining cognitive function, failure to thrive and, memory deficits. His daughter notes that there has been some compliance issues with his medications and that he often mixes up his doses of medications or does not take them at all. On arrival to the ED the patient was combative, remained confused and not oriented to person or place. Initial workup did show a UTI with positive leukocytes, glucosuria, trace ketones and proteins. CT head w/o contrast shows mild to moderate chronic small vessel changes but no acute infarct identified. On bedside examination this morning the patient is very lethargic, and not able to meaningfully participate in H&P. His daughter and are at bedside and note that he has been sleeping all night since being given Ativan in the ED. 07/06 - patient re-evaluated again this afternoon and his mentation has improved. He is still poorly oriented to time and place but recognizes his family members. Family members are at bedside and they confirm that he is at back to his baseline mentation. He has tolerated meals well, and is up and ambulating without difficulty. I discussed the plan for home care with the patient's family and they have agreed to continued care once he gets home. Procedures: Cardiology Procedures 07/05/17 10:31 Shoe Packer .Continuous Abnormal Labs: Abnormal Lab Results 07/05/17 07/05/17 07/05/17 Range/Units 06:13 06:37 12:48 WBC 13.8 H (4.2-12.2) K/uL RBC 6.13 H (4.40-5.70) M/uL MPV 10.8 H (7.4-10.4) fl Neutrophils % 88.0 H (47-80) % Lymphocytes 7.0 L (16-45) % Chloride 97 L (98-107) mmol/L Carbon Dioxide 20.0 L (22-29) mmol/L Anion Gap 20.0 H (7-16) POC Glucose 368 H (70-110) mg/dL Random Glucose 250 H (74-109) mg/dL Calcium (8.8-10.2) mg/dL Ammonia (16.0-60.0) umol/L 07/05/17 07/05/17 07/06/17 Range/Units 17:19 22:00 06:43 WBC (4.2-12.2) K/uL RBC (4.40-5.70) M/uL MPV 10.5 H (7.4-10.4) fl Neutrophils % (47-80) % Lymphocytes (16-45) % Chloride (98-107) mmol/L Carbon Dioxide (22-29) mmol/L Anion Gap (7-16) POC Glucose 184 H 115 H (70-110) mg/dL Random Glucose (74-109) mg/dL Calcium (8.8-10.2) mg/dL Ammonia (16.0-60.0) umol/L 07/06/17 07/06/17 07/06/17 Range/Units 06:43 06:43 11:58 WBC (4.2-12.2) K/uL RBC (4.40-5.70) M/uL MPV (7.4-10.4) fl Neutrophils % (47-80) % Lymphocytes (16-45) % Chloride (98-107) mmol/L Carbon Dioxide (22-29) mmol/L Anion Gap (7-16) POC Glucose 279 H (70-110) mg/dL Random Glucose (74-109) mg/dL Calcium 8.7 L (8.8-10.2) mg/dL Ammonia 14 L (16.0-60.0) umol/L Discharge Medications - Discharge Medications Prescriptions: Ciprofloxacin HCl [Cipro] 250 mg PO Q12H 1 Days #2 tablet Home Medications: Ambulatory Orders Aspirin, Regular 325 mg PO DAILY 01/15/14 [Last Taken 11/22/15] Carvedilol [Coreg] 6.25 mg PO BID 01/15/14 [Last Taken 11/22/15] Felodipine [Felodipine ER] 10 mg PO DAILY 01/15/14 [Last Taken 11/22/15] Omeprazole [Prilosec] 20 mg PO DAILYAC 01/15/14 [Last Taken 11/22/15] Simvastatin [Zocor] 40 mg PO QHS 01/15/14 [Last Taken 11/21/15] Insulin Aspart [Novolog Flexpen] 12 unit SQ TIDINS #1 ml 05/07/17 [Last Taken Unknown] Insulin Glargine,Hum.rec.anlog [Lantus] 35 unit SQ BID #0 05/07/17 [Last Taken 11/22/15] Tamsulosin HCl [Flomax] 0.4 mg PO QHS cap.er.24h 05/07/17 [Last Taken Unknown] Duloxetine HCl 60 mg PO DAILY 06/04/17 [Last Taken Unknown] Ergocalciferol (Vitamin D2) [Vitamin D2] 50,000 unit PO WEEKLY 07/05/17 [Last Taken Unknown] Ciprofloxacin HCl [Cipro] 250 mg PO Q12H 1 Days #2 tablet 07/06/17 [Last Taken Unknown] Discharge Plan - Discharge Instructions Activity at Discharge: Resume Usual Activities As Tolerated Diet at Discharge: Diabetic Diet Quality Measures - Quality Measures Quality Measures: Atrial Fibrillation & Atrial Flutter: Chronic Anticoagulation Therapy, Advance Directives, Coronary Artery Disease: Antiplatelet Therapy, Documentation of Current Medications in Medical Record, Elder Maltreatment Screen and Follow-Up Plan, Heart Failure, Screening for High Blood Pressure and F/U Documented - Current Medications Quality Measure: Measure #130: Documentation of Current Medications Documentation of Current Medications: <Current Medications Documented/Reviewed> [G8427] - Blood Pressure Screening Quality Measure: Screening for High Blood Pressure and Follow-Up Documented Does Patient Have Any of the Following: Active Dx of HTN Blood Pressure Classification: Hypertensive Reading Systolic Measurement: 163 Diastolic Measurement: 103 Screening for High Blood Pressure: Patient Exclusion, Hx of HTN [G9744] - Atrial Fibrillation and Atrial Flutter Quality Measure: Atrial Fibrillation & Atrial Flutter: Chronic Anticoagulation Therapy Does Patient Have Any of the Following: No CHADS2 Risk Stratification: Age 75 or Greater, Hypertension, Diabetes Mellitus Risk Stratification Summary: One or more high risk factors OR more than one moderate risk factor exists. [F1208] Anticoagulation Therapy: Not Prescribed for Medical Reason [8968] Medical Reason for NOT Prescribing Anticoagulant: Risk of Bleeding - Coronary Artery Disease Quality Measure: Measure #6: Coronary Artery Disease (CAD) Antiplatelet Therapy: <ASA or clopidogrel prescribed> [4086F] - Heart Failure (KAREN/ARB Therapy) Quality Measure: Heart Failure Left Ventricular Systolic Function: Unknown KAREN Inhibitor or ARB Therapy for LVSD: Not Eligible - Heart Failure (Beta-shaggy Therapy) Quality Measure: Heart Failure Left Ventricular Systolic Function: Unknown Beta-Shaggy Therapy for LVEF < 40%: <Beta-Shaggy Therapy Prescribed> [O7550] - Advance Directives Quality Measure: Measure #47: Care Plan Advance Directives Established: Yes Advance Directives Information Provided To Patient: No Advance Directives on File: No Living Will: Yes Power of Filenet P8 Developer: Yes Power of Filenet P8 Developer Name: Kassandra(daughter) Advance Care Planning: <Care Plan/Decision Maker Documented; Discussed & Documented> [7683F] - Elder Abuse Suspicion Index Screening: Elder Abuse Suspicion Index Screening Rely on people for bathing, dressing, shopping, banking, etc: Did Not Answer Prevented from getting food, clothes, medication, etc: Did Not Answer Made to feel shamed or threatened by someone: Did Not Answer Forced to sign papers or use money against will: Did Not Answer Feel afraid, touched in ways not wanted or hurt physically: Did Not Answer Poor eye contact, withdrawn, malnourished, cuts or bruises: Did Not Answer Screening Result: Negative result EASI Reference Information: Feliciano MCKEON, Fidencio C, Derrek D, Lizzie Barone.Development and validation of a tool to assist physicians identification of elder abuse: The Elder Abuse Suspicion Index (EASI ). Journal of Elder Abuse and Neglect, 2008; 20 (3): 276-300. - Elder Maltreatment Screen Quality Measures: Elder Maltreatment Screen and Follow-Up Plan Elder Maltreatment Screen: <Negative, No Follow-Up Plan Required> [E8717]
== END 2017-07-06 16:30 | disposition home health service (06) ==
LOC: ER 19:24 → MEDSURG 07-05 00:51 → INTOOBSV 07-05 00:51
PROVIDERS: ADMIT Internal Medicine; ATTEND Internal Medicine
DX: R41.82 Altered mental status, unspecified (principal); F32.9 Major depressive disorder, single episode, unspecified; Z95.1 Presence of aortocoronary bypass graft; N34.2 Other urethritis; E11.65 Type 2 diabetes mellitus with hyperglycemia; Z79.4 Long term (current) use of insulin; I10 Essential (primary) hypertension; Z78.9 Other specified health status
CPT/HCPCS: 99285 ×2; 96374; 96375; 82800; 82140; 85025 ×2; 80048 ×2; 80053; 36416 ×3; 81001; 82948 ×3; 84443; 82607; 85027; 70450; 93005; 93010; G0378 ×2; J0744; J2060; J1815 ×2; 99217; 99220; J1650

== ENCOUNTER 2018-02-18 12:18 | Emergency (ER) | payer MEDICARE ==
[2018-02-18] MEDS: HYDROCODONE/APAP 5/325MG TABLET PO ONE ×2 (13:11→15:07)
--- NOTE | 2018-02-18 13:41 | Emergency Department Record ---
History of Present Illness - General Chief complaint: Extremity Problem Stated complaint: KNEE INJURY Time Seen by Provider: 02/18/18 12:41 Source: Patient, Family Mode of Arrival: Ambulatory Limitations: No limitations - History of Present Illness Initial comments: pt fell last night injuring his r knee. it kept him awake all night. he has frequent falls and uses a cane. he has been told on previous visits to use a walker. he denies any other injury MD Complaint: Extremity pain, Joint pain, Joint swelling Consistency: Constant Improves with: Nothing Worsens with: Palpation, Weight bearing Associated Symptoms: Denies other symptoms - Related Data Previous Rx's Medication Instructions Recorded Insulin Aspart [Novolog Flexpen] 12 unit SQ TIDINS #1 ml 05/07/17 Insulin Glargine,Hum.rec.anlog 35 unit SQ BID #0 05/07/17 [Lantus] Tamsulosin HCl [Flomax] 0.4 mg PO QHS cap.er.24h 05/07/17 Ciprofloxacin HCl [Cipro] 250 mg PO Q12H 1 Days #2 tablet 07/06/17 Allergies Allergy/AdvReac Type Severity Reaction Status Date / Time triamterene [From Dyazide] AdvReac Mild ITCHING Verified 02/18/18 12:33 Travel Screening - Travel/Exposure Within Last 30 Days Have you traveled within the last 30 days?: No - Travel/Exposure Within Last Year Have you traveled outside the [place] in the last year?: No - Additonal Travel Details Have you been exposed to anyone with a communicable illness?: No - Travel Symptoms Symptom Screening: None Review of Systems Reviewed: No additional complaints except as noted below Constitutional: Reports: As per HPI. Denies: Chills, Fever, Malaise, Night sweats, Weakness, Weight change Eyes: Reports: As per HPI. Denies: Eye discharge, Eye pain, Photophobia, Vision change ENT: Reports: As per HPI. Denies: Congestion, Dental pain, Ear pain, Epistaxis , Hearing loss, Throat pain Respiratory: Reports: As per HPI. Denies: Cough, Dyspnea, Hemoptysis, Stridor, Wheezes Cardiovascular: Reports: As per HPI. Denies: Arrhythmia, Chest pain, Dyspnea on exertion, Edema, Murmurs, Orthopnea, Palpitations, Paroxysmal nocturnal dyspnea, Rheumatic Fever, Syncope Endocrine: Reports: As per HPI. Denies: Fatigue, Heat or cold intolerance, Polydipsia, Polyuria Gastrointestinal: Reports: As per HPI. Denies: Abdominal pain, Constipation, Diarrhea, Hematemesis, Hematochezia, Melena, Nausea, Vomiting Genitourinary: Reports: As per HPI. Denies: Dysuria, Frequency, Hematuria, Incontinence, Retention, Testicular pain, Testicular mass, Urgency Musculoskeletal: Reports: As per HPI. Denies: Arthralgia, Back pain, Gout, Joint swelling, Myalgia, Neck pain Skin: Reports: As per HPI. Denies: Bruising, Change in color, Change in hair/ nails, Lesions, Pruritus, Rash Neurological: Reports: As per HPI. Denies: Abnormal gait, Confusion, Headache, Numbness, Paresthesias, Seizure, Tingling, Tremors, Vertigo, Weakness Psychiatric: Reports: As per HPI. Denies: Anxiety, Auditory hallucinations, Depression, Homicidal thoughts, Suicidal thoughts, Visual hallucinations Hematological/Lymphatic: Reports: As per HPI. Denies: Anemia, Blood Clots, Easy bleeding, Easy bruising, Swollen glands Past Medical History - SOCIAL HISTORY Smoking Status: Never smoker Alcohol Use: None Drug Use: None - RESPIRATORY Hx Respiratory Disorders: No - CARDIOVASCULAR Hx Cardio Disorders: Yes Hx Heart Attack: Yes Hx Hypertension: Yes - NEURO Hx Neuro Disorders: No - GI Hx GI Disorders: Yes Hx Reflux: Yes Comment:: bowel obstruction - Hx Genitourinary Disorders: Yes Hx Prostate Problems: Yes - ENDOCRINE Hx Endocrine Disorders: Yes Hx Diabetes: Yes - MUSCULOSKELETAL Hx Musculoskeletal Disorders: Yes Hx Arthritis: Yes - PSYCH Hx Psych Problems: No - HEMATOLOGY/ONCOLOGY Hx Hematology/Oncology Disorders: Yes Hx Cancer: Yes (Colon) Hx Chemotherapy: No Hx Radiation Therapy: Yes Family Medical History Any Significant Family History?: No Hx Heart Disease: Mother Physical Exam - General General Appearance: Alert, Oriented x3, Cooperative, Mild distress - Head Head exam: Normal inspection - Eye Eye exam: Normal appearance, PERRL, EOMI Pupils: Normal accommodation - ENT ENT exam: Normal exam, Mucous membranes moist, Normal external ear exam, Normal orophraynx Ear exam: Normal external inspection. negative: External canal tenderness Nasal Exam: Normal inspection. negative: Discharge, Sinus tenderness Mouth exam: Normal external inspection, Tongue normal Teeth exam: Normal inspection. negative: Dental caries Throat exam: Normal inspection. negative: Tonsillar erythema, Tonsillar exudate - Neck Neck exam: Normal inspection, Full ROM. negative: Tenderness - Respiratory Respiratory exam: Normal lung sounds bilaterally. negative: Respiratory distress - Cardiovascular Cardiovascular Exam: Regular rate, Normal rhythm, Normal heart sounds - GI/Abdominal GI/Abdominal exam: Soft, Normal bowel sounds. negative: Tenderness - Rectal Rectal exam: Deferred - exam: Deferred - Extremities Extremities exam: Normal capillary refill, Tenderness. negative: Normal inspection, Full ROM Image of Full Body: 1 - tender w swelling and ecchymosis - Back Back exam: Reports: Normal inspection, Full ROM. Denies: Muscle spasm, Rash noted, Tenderness - Neurological Neurological exam: Alert, CN II-XII intact, Normal gait, Oriented X3 - Psychiatric Psychiatric exam: Normal affect, Normal mood - Skin Skin exam: Dry, Intact, Normal color, Warm Course Vital Signs 02/18/18 12:28 Temperature 97.8 F Pulse Rate 58 L Respiratory 18 Rate Blood Pressure 156/78 Pulse Ox 98 Disposition Disposition: Discharge Clinical Impression: Sprain of knee Qualifiers: Encounter type: initial encounter Involved ligament of knee: unspecified ligament Laterality: right Qualified Code(s): S83.91XA - Sprain of unspecified site of right knee, initial encounter Contusion, knee and lower leg Qualifiers: Encounter type: initial encounter Laterality: right Qualified Code(s): S80.01XA - Contusion of right knee, initial encounter; S80.11XA - Contusion of right lower leg, initial encounter Disposition: Home, Self-Care Condition: (1) Good Instructions: Knee Immobilizer (ED), Knee Sprain (ED), Contusion in Adults (ED) Additional Instructions: follow up with family doctor. return sooner if worse. ice and elevate. use walker Forms: Patient Portal Access Quality - Quality Measures Quality Measures: N/A - Blood Pressure Screening Does Patient Have Any of the Following: No Blood Pressure Classification: Hypertensive Reading Systolic Measurement: 156 Diastolic Measurement: 78 Screening for High Blood Pressure: < First Hypertensive BP, F/U Documented > [ G8950] First Hypertensive Follow-up Interventions: Follow-up with rescreen GT 1 day and LT 4 weeks.
--- NOTE | 2018-02-19 10:23 | RADIOLOGY REPORT ---
EXAM: RIGHT KNEE HISTORY: PATIENT FELL ONTO RIGHT KNEE YESTERDAY, BRUISED WITH PAIN IN [place]. TECHNIQUE: Four views of the right knee were obtained. Comparison: No prior right knee series with which to compare. Encounter: Initial. FINDINGS: Diffuse osteopenia is seen consistent with osteoporosis. Vascular calcification. Mild chondrocalcinosis. Mild degenerative arthritis. No definite acute fracture or dislocation seen. There is probably some prepatellar soft tissue swelling and possibly a small joint effusion. IMPRESSION: 1. OSTEOPOROSIS. 2. VASCULAR CALCIFICATION AND MILD CHONDROCALCINOSIS. 3. MILD DEGENERATIVE ARTHRITIS. 4. PREPATELLAR SOFT TISSUE SWELLING AND PROBABLY A SMALL JOINT EFFUSION. 5. NO DEFINITE ACUTE FRACTURE OF THE RIGHT KNEE IDENTIFIED. JOB NUMBER: [id number] MTDD
== END 2018-02-18 15:09 | disposition home or self-care (01) ==
LOC: ER 12:18
DX: S83.91XA Sprain of unspecified site of right knee, initial encounter (principal); S80.11XA Contusion of right lower leg, initial encounter; W19.XXXA Unspecified fall, initial encounter; Z91.81 History of falling; I10 Essential (primary) hypertension; I25.2 Old myocardial infarction; E11.9 Type 2 diabetes mellitus without complications; Z79.4 Long term (current) use of insulin
CPT/HCPCS: 99283

== ENCOUNTER 2018-09-23 17:12 | Emergency (ER) | payer MEDICARE ==
--- NOTE | 2018-09-23 17:32 | Emergency Department Record ---
History of Present Illness - General Chief Complaint: Fall Injury Stated Complaint: RT SHOULDER PAIN/FALL COUPLE DAYS AGO Time Seen by Provider: 09/23/18 17:24 Source: Patient, Family Mode of Arrival: Ambulatory Limitations: No limitations - History of Present Illness Initial Comments: 88 yo male presents with right shoulder pain. He fell one week ago [place]. He slipped from standing height on ice. He landed on his shoulder. He has had pain for a week since the fall. No other new pains or complaints. No head injury. No neck pain. No elbow pain. He has full ROM but the shoulder pain keeps him up at night. MD Complaint: Fall Onset/Timin -: Week(s) (1) Fall From: From height (distance) When Fall Occurred: # Days [employer] (7) Fall Witnessed: Yes, by family Place Fall Occurred: Home Loss of Consciousness: None Prolonged Down Time?: No Symptoms Prior to Fall: None Location - Extremities: Right: Shoulder Severity: Moderate Quality: Aching Context: Tripped/slipped Associated Symptoms: Denies - [place] Coma Scale Eye Response: (4) Open spontaneously Motor Response: (6) Obeys commands Verbal Response: (5) Oriented [place] Total: 15 - Related Data Previous Rx's Medication Instructions Recorded Insulin Aspart [Novolog Flexpen] 12 unit SQ TIDINS #1 ml 05/07/17 Insulin Glargine,Hum.rec.anlog 35 unit SQ BID #0 05/07/17 [Lantus] Tamsulosin HCl [Flomax] 0.4 mg PO QHS cap.er.24h 05/07/17 Ciprofloxacin HCl [Cipro] 250 mg PO Q12H 1 Days #2 tablet 07/06/17 Allergies Allergy/AdvReac Type Severity Reaction Status Date / Time triamterene [From Dyazide] AdvReac Mild ITCHING Verified 09/23/18 17:24 Travel Screening - Travel/Exposure Within Last 30 Days Have you traveled within the last 30 days?: No - Travel/Exposure Within Last Year Have you traveled outside the [place] in the last year?: No - Additonal Travel Details Have you been exposed to anyone with a communicable illness?: No - Travel Symptoms Symptom Screening: None Review of Systems Constitutional: Denies: Chills, Fever Eyes: Denies: Eye discharge, Eye pain, Vision change ENT: Denies: Congestion, Ear pain, Throat pain Respiratory: Denies: Cough Cardiovascular: Denies: Chest pain, Syncope Endocrine: Denies: Fatigue Gastrointestinal: Denies: Abdominal pain, Diarrhea, Nausea, Vomiting Genitourinary: Denies: Dysuria Musculoskeletal: Reports: As per HPI, Arthralgia. Denies: Back pain Skin: Denies: Bruising, Change in color, Rash Neurological: Denies: Confusion, Headache, Numbness, Weakness Psychiatric: Denies: Anxiety Hematological/Lymphatic: Denies: Easy bleeding, Easy bruising, Swollen glands Past Medical History - SOCIAL HISTORY Smoking Status: Never smoker Alcohol Use: None Drug Use: None - RESPIRATORY Hx Respiratory Disorders: No - CARDIOVASCULAR Hx Cardio Disorders: Yes Hx Heart Attack: Yes Hx Hypertension: Yes - NEURO Hx Neuro Disorders: No - GI Hx GI Disorders: Yes Hx Reflux: Yes Comment:: bowel obstruction - Hx Genitourinary Disorders: Yes Hx Prostate Problems: Yes - ENDOCRINE Hx Endocrine Disorders: Yes Hx Diabetes: Yes - MUSCULOSKELETAL Hx Musculoskeletal Disorders: Yes Hx Arthritis: Yes - PSYCH Hx Psych Problems: No - HEMATOLOGY/ONCOLOGY Hx Hematology/Oncology Disorders: Yes Hx Cancer: Yes (Colon) Hx Chemotherapy: No Hx Radiation Therapy: Yes Family Medical History Any Significant Family History?: No Hx Heart Disease: Mother Physical Exam - General General Appearance: Alert, Oriented x3, Cooperative, No acute distress Limitations: No limitations - Head Head exam: Atraumatic, Normocephalic, Normal inspection Head exam detail: negative: Abrasion, Contusion, Hematoma - Eye Eye exam: Normal appearance, PERRL. negative: Conjunctival injection, Scleral icterus - ENT ENT exam: Normal exam, Mucous membranes moist Ear exam: Normal external inspection Nasal Exam: Normal inspection Mouth exam: Normal external inspection - Neck Neck exam: Normal inspection, Full ROM. negative: Tenderness - Respiratory Respiratory exam: Normal lung sounds bilaterally. negative: Chest wall tenderness, Respiratory distress, Rhonchi, Stridor, Wheezes - Cardiovascular Cardiovascular Exam: Regular rate, Normal rhythm, Normal heart sounds - GI/Abdominal GI/Abdominal exam: Soft. negative: Tenderness - Rectal Rectal exam: Deferred - exam: Deferred - Extremities Extremities exam: Normal inspection, Full ROM, Normal capillary refill, Tenderness Image of Full Body: 1 - no deformity, faint residual bruise, full internal and external rotation, clavicle non tender. - Back Back exam: Denies: CVA tenderness (R), CVA tenderness (L) - Neurological Neurological exam: Alert, Oriented X3. negative: Altered - Psychiatric Psychiatric exam: Normal affect, Normal mood - Skin Skin exam: Dry, Intact, Normal color, Warm Course Vital Signs 09/23/18 17:14 Pulse Rate 70 Respiratory 16 Rate Blood Pressure 170/96 Pulse Ox 95 - Reevaluation(s) Reevaluation #1: The shoulder XR was reviewed No displaced fracture or dislocation We discussed the results I recommend he see his PCP, if the pain continues he may require further testing (CT or MRI) He has good ROM without limitations at this time. 09/23/18 17:46 Disposition Disposition: Discharge Clinical Impression: Shoulder contusion Qualifiers: Encounter type: initial encounter Laterality: right Qualified Code(s): S40.011A - Contusion of right shoulder, initial encounter Disposition: Home, Self-Care Condition: (1) Good Instructions: Shoulder Sprain (ED) Additional Instructions: Call your doctor for the next available follow up appointment if the pain continues in the right shoulder If the pain continues you may need further testing or referral. Return to the ER for a recheck if worse, any new concerns or questions Review this ER visit and the tests performed with your family doctor Forms: Patient Portal Access Time of Disposition: 18:22 Quality - Quality Measures Quality Measures: N/A - Blood Pressure Screening Does Patient Have Any of the Following: Active Dx of HTN Blood Pressure Classification: Hypertensive Reading Systolic Measurement: 170 Diastolic Measurement: 96 Screening for High Blood Pressure: Patient Exclusion, Hx of HTN [G9744]
== END 2018-09-23 18:31 | disposition home or self-care (01) ==
LOC: ER 17:12
DX: S40.011A Contusion of right shoulder, initial encounter (principal); W00.0XXA Fall on same level due to ice and snow, initial encounter; Y92.89 Other specified places as the place of occurrence of the external cause; I10 Essential (primary) hypertension; I25.2 Old myocardial infarction
CPT/HCPCS: 99283

== ENCOUNTER 2019-03-20 19:08 | Emergency (ER) | payer MEDICARE ==
--- NOTE | 2019-03-20 19:15 | Emergency Department Record ---
History of Present Illness - General Stated Complaint: FALL Time Seen by Provider: 03/20/19 19:09 Source: Patient, EMS Mode of Arrival: Ambulatory Limitations: No limitations - History of Present Illness Initial Comments: 88 yo male presents with a trip and fall. He is a resident at [facility]. No reported LOC. No syncope. He is not on any blood thinners. He states he did his his head. No outward signs of injury to the head. He landed on both knees as well. No chest pain, shortness of breath, new back pain, abdominal pain. He reports he is otherwise in his usual state of health. Dr Xiong is his PCP. MD Complaint: Fall -: Minutes(s) Fall From: Standing When Fall Occurred: Just prior to arrival Fall Witnessed: Yes, by living facility staff Place Fall Occurred: halfway/SNF Loss of Consciousness: None Prolonged Down Time?: No Symptoms Prior to Fall: None Location: Head, Other (Knees) Location - Extremities: Left: Knee, Right: Knee Severity: Moderate Quality: Aching Context: Tripped/slipped Associated Symptoms: Denies - [place] Coma Scale Eye Response: (4) Open spontaneously Motor Response: (6) Obeys commands Verbal Response: (5) Oriented [place] Total: 15 - Related Data Previous Rx's Medication Instructions Recorded Insulin Aspart [Novolog Flexpen] 12 unit SQ TIDINS #1 ml 05/07/17 Insulin Glargine,Hum.rec.anlog 35 unit SQ BID #0 05/07/17 [Lantus] Tamsulosin HCl [Flomax] 0.4 mg PO QHS cap.er.24h 05/07/17 Ciprofloxacin HCl [Cipro] 250 mg PO Q12H 1 Days #2 tablet 07/06/17 Allergies Allergy/AdvReac Type Severity Reaction Status Date / Time pregabalin [From Lyrica] Allergy PT UNSURE Verified 03/20/19 19:12 OF REACTION triamterene [From Dyazide] AdvReac Mild ITCHING Verified 09/23/18 17:24 Review of Systems Constitutional: Denies: Chills, Fever, Malaise, Weakness Eyes: Denies: Eye discharge, Eye pain, Photophobia, Vision change ENT: Denies: Congestion, Throat pain Respiratory: Denies: Cough Cardiovascular: Denies: Chest pain, Syncope Endocrine: Denies: Fatigue Gastrointestinal: Denies: Abdominal pain, Diarrhea, Nausea, Vomiting Genitourinary: Denies: Dysuria, Frequency, Hematuria Musculoskeletal: Reports: Arthralgia, Back pain (chronic). Denies: Joint swelling, Myalgia Skin: Denies: Bruising, Change in color, Rash Neurological: Denies: Headache Psychiatric: Denies: Anxiety Hematological/Lymphatic: Denies: Easy bleeding, Easy bruising Past Medical History - SOCIAL HISTORY Smoking Status: Never smoker Drug Use: None - RESPIRATORY Hx Respiratory Disorders: No - CARDIOVASCULAR Hx Cardio Disorders: Yes Hx Heart Attack: Yes Hx Hypertension: Yes - NEURO Hx Neuro Disorders: No - GI Hx GI Disorders: Yes Hx Reflux: Yes Comment:: bowel obstruction - Hx Genitourinary Disorders: Yes Hx Prostate Problems: Yes - ENDOCRINE Hx Endocrine Disorders: Yes Hx Diabetes: Yes - MUSCULOSKELETAL Hx Musculoskeletal Disorders: Yes Hx Arthritis: Yes - PSYCH Hx Psych Problems: No - HEMATOLOGY/ONCOLOGY Hx Hematology/Oncology Disorders: Yes Hx Cancer: Yes (Colon) Hx Chemotherapy: No Hx Radiation Therapy: Yes Family Medical History Hx Heart Disease: Mother Physical Exam - General General Appearance: Alert, Oriented x3, Cooperative, No acute distress Limitations: No limitations - Head Head exam: Atraumatic, Normocephalic, Normal inspection Head exam detail: negative: Abrasion, Contusion, General tenderness, Hematoma, Laceration - Eye Eye exam: Normal appearance, PERRL. negative: Conjunctival injection, Scleral icterus - ENT ENT exam: Normal exam, Mucous membranes moist Ear exam: Normal external inspection Nasal Exam: Normal inspection Mouth exam: Normal external inspection Teeth exam: Normal inspection Throat exam: Normal inspection - Neck Neck exam: Normal inspection. negative: Full ROM (in c-collar) - Respiratory Respiratory exam: Normal lung sounds bilaterally. negative: Chest wall tenderness, Decreased breath sounds, Prolonged expiratory, Respiratory distress, Rhonchi, Stridor, Wheezes - Cardiovascular Cardiovascular Exam: Regular rate, Normal rhythm, Normal heart sounds Peripheral Pulses: 2+: Radial (R), Radial (L) - GI/Abdominal GI/Abdominal exam: Soft. negative: Distended, Guarding, Tenderness - Rectal Rectal exam: Deferred - exam: Deferred - Extremities Extremities exam: Full ROM, Joint swelling, Tenderness. negative: Normal inspection Image of Full Body: 1 - abrasions bilateral knees, full ROM, swelling left patella - Back Back exam: Denies: CVA tenderness (R), CVA tenderness (L), Muscle spasm, Paraspinal tenderness, Rash noted, Tenderness, Vertebral tenderness - Neurological Neurological exam: Alert, CN II-XII intact, Normal gait, Oriented X3. negative: Abnormal gait, Altered, Motor sensory deficit - Psychiatric Psychiatric exam: Normal affect, Normal mood - Skin Skin exam: Dry, Intact, Normal color, Warm Course - Reevaluation(s) Reevaluation #1: 03/20/19 21:23 The HCT and Cervical CT are negative The XR's of the knees are negative for acute injury He has remained at baseline Eye-witness states no syncope, it was indeed a trip and fall EKG #1: 20:42 Rate: 68 Rhythm: sinus with APC [place]: L Intervals: [place] 240 ST segments: NS flat T waves No changes from prior Prior: 07/04/17 DC home with family at baseline Disposition Disposition: Discharge Clinical Impression: Fall Qualifiers: Encounter type: initial encounter Qualified Code(s): W19.XXXA - Unspecified fall, initial encounter Head contusion Qualifiers: Encounter type: initial encounter Contusion of head detail: scalp Qualified Code(s): S00.03XA - Contusion of scalp, initial encounter Knee contusion Qualifiers: Encounter type: initial encounter Laterality: unspecified laterality Qualified Code(s): S80.00XA - Contusion of unspecified knee, initial encounter Disposition: Home, Self-Care Condition: (1) Good Instructions: Fall Prevention for Older Adults (ED) Additional Instructions: Review this ER visit and the tests performed with your family doctor Return to the ER for a recheck if worse, any new concerns or questions Forms: Patient Portal Access Time of Disposition: 21:26 Quality - Quality Measures Quality Measures: N/A, Blunt Head Trauma (>2yr) - [place] Coma Scale [place] Coma Scale: [place] Coma Scale Eye Response: (4) Open spontaneously Motor Response: (6) Obeys commands Verbal Response: (5) Oriented [place] Total: 15 - Blunt Head Trauma - Adult Quality Measure: Measure #415: Utilization of CT for Minor Blunt Head Trauma ICD10 Codes Entered: Yes Was CT ordered: Yes Does Patient Have Any of the Following: No Exclusions Patient Presented Within 24 Hours of Injury: Yes [place] Score: [address] for Minor Blunt Head Trauma: < CT Done, Appropriate Indication > [G9529] Additional Inclusion Criteria: Within 24hrs (AND) GCS of 15 (AND) CT ordered. [G9530] Indications For CT: Age 65 Years and Older - Blood Pressure Screening Does Patient Have Any of the Following: Active Dx of HTN Blood Pressure Classification: Hypertensive Reading Systolic Measurement: 183 Diastolic Measurement: 104 Screening for High Blood Pressure: Patient Exclusion, Hx of HTN [G9744]
--- NOTE | 2019-03-21 20:15 | CT SCAN REPORT ---
EXAM: CT SCAN HEAD WO CONTRAST HISTORY: FRONTAL HEADACHE. FELL IN LIVING ROOM. TECHNIQUE: Noncontrast head CT. COMPARISON: Head CT 07/04/2017. FINDINGS: There is prominence of the ventricles and subarachnoid spaces compatible with atrophy. No There is no mass or mass effect. No intra or extraaxial hemorrhage. No CT evidence for a large acute territorial infarct. Areas of white matter hypodensity are present, likely the result of chronic small vessel ischemic change. There is no fracture or acute osseous abnormality. Orbits are unremarkable. There is a polyp or retention cyst in the left frontal sinus. IMPRESSION: 1. NO MASS, HEMORRHAGE, OR ACUTE INTRACRANIAL PROCESS. 2. ATROPHY AND CHRONIC SMALL VESSEL ISCHEMIC CHANGES. 3. POLYP OR RETENTION CYST IN THE LEFT FRONTAL SINUS. JOB NUMBER: [id number] MTDD
--- NOTE | 2019-03-21 20:20 | CT SCAN REPORT ---
EXAM: CT SCAN CERVICAL SPINE WO CONTRAST HISTORY: HEADACHE. FELL, NECK INJURY. TECHNIQUE: Noncontrast CT of the cervical spine. COMPARISON: None. FINDINGS: There is no fracture or acute osseous abnormality. There is no soft tissue swelling. Disc space narrowing is present throughout the cervical spine and is most pronounced at C6-C7. Degenerative endplate spurring and uncovertebral spurring present throughout the cervical spine. Facet arthritic changes are present at multiple levels. Neural foraminal narrowing present at multiple levels throughout the cervical spine. There is no obvious mass identified. Upper mediastinum and upper lungs are unremarkable. IMPRESSION: 1. NO FRACTURE OR ACUTE OSSEOUS ABNORMALITY. 2. MULTILEVEL DEGENERATIVE DISC AND FACET ARTHRITIC CHANGES, ABOVE. 3. NEURAL FORAMINAL NARROWING AT MULTIPLE LEVELS. J[facility]BER: [id number] [facility]
--- NOTE | 2019-03-21 20:22 | RADIOLOGY REPORT ---
EXAM: KNEE, RIGHT 4 VIEWS HISTORY: FALL. TECHNIQUE: Four views right knee. COMPARISON: None. FINDINGS: The bones are diffusely osteopenic. There is no fracture or acute osseous abnormality. The joint spaces are fairly well maintained. No destructive or erosive changes. IMPRESSION: DIFFUSE OSTEOPENIA. NO FRACTURE IS SEEN. JOB NUMBER: [id number] MTDD
--- NOTE | 2019-03-21 20:25 | RADIOLOGY REPORT ---
EXAM: KNEE, LEFT 4 VIEWS HISTORY: FALL, INJURY. TECHNIQUE: Four views. COMPARISON: None. FINDINGS: Moderate narrowing of the medial and lateral joint space compartments and mild narrowing of the patellofemoral joint. There are marginal osteophytes. There is no fracture or acute osseous abnormality. The bones are diffusely osteopenic. IMPRESSION: TRICOMPARTMENTAL ARTHRITIC CHANGES WITH NO FRACTURE OR ACUTE OSSEOUS ABNORMALITY. J[facility]BER: [id number] [facility]
== END 2019-03-20 21:55 | disposition home or self-care (01) ==
LOC: ER 19:08
DX: S00.03XA Contusion of scalp, initial encounter (principal); S80.02XA Contusion of left knee, initial encounter; S80.01XA Contusion of right knee, initial encounter; S80.212A Abrasion, left knee, initial encounter; S80.211A Abrasion, right knee, initial encounter; R51 Headache; E11.9 Type 2 diabetes mellitus without complications; F03.90 Unspecified dementia, unspecified severity, without behavioral disturbance, psychotic disturbance, mood disturbance, and anxiety; Z79.4 Long term (current) use of insulin; I10 Essential (primary) hypertension; I25.2 Old myocardial infarction; W01.0XXA Fall on same level from slipping, tripping and stumbling without subsequent striking against object, initial encounter; Y92.129 Unspecified place in nursing home as the place of occurrence of the external cause
CPT/HCPCS: 70450; 72125; 93005; 93010; 99284

== ENCOUNTER 2019-04-03 07:43 | Emergency (ER) | payer MEDICARE ==
--- NOTE | 2019-04-03 07:52 | Emergency Department Record ---
History of Present Illness - General Stated Complaint: FALL Time Seen by Provider: 04/03/19 07:45 Source: Patient, EMS Mode of Arrival: EMS Limitations: No limitations - History of Present Illness Initial Comments: 88 yo male presents after a fall in the bathroom at a local nursing facility. He reports he lost his balance hitting his head and left hip. Per the patient and EMS there is no report of LOC or syncope. Per EMS the patient was alert the entire time. He presents at his baseline. He has an abrasion to his head and pain over the left hip. He denies any other pain. He is not on any anti- coagulants per his medication list provided. No chest pain, syncope, abdominal pain. No report of changes in his recent health. 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 He denies prior hip fracture. MD Complaint: Fall -: Minutes(s) Fall From: Standing When Fall Occurred: Just prior to arrival Fall Witnessed: Yes, by living facility staff Place Fall Occurred: custodial/SNF Loss of Consciousness: None Prolonged Down Time?: No Symptoms Prior to Fall: None Location: Head, Pelvis Location - Extremities: Left: Thigh Severity: Moderate Quality: Aching Context: Other Associated Symptoms: Denies - [place] Coma Scale Eye Response: (4) Open spontaneously Motor Response: (6) Obeys commands Verbal Response: (5) Oriented [place] Total: 15 - Related Data Previous Rx's Medication Instructions Recorded Insulin Aspart [Novolog Flexpen] 12 unit SQ TIDINS #1 ml 05/07/17 Insulin Glargine,Hum.rec.anlog 35 unit SQ BID #0 05/07/17 [Lantus] Tamsulosin HCl [Flomax] 0.4 mg PO QHS cap.er.24h 05/07/17 Allergies Allergy/AdvReac Type Severity Reaction Status Date / Time pregabalin [From Lyrica] Allergy PT UNSURE Verified 04/03/19 07:52 OF REACTION triamterene [From Dyazide] AdvReac Mild ITCHING Verified 04/03/19 07:52 Review of Systems Constitutional: Denies: Chills, Fever, Weakness Eyes: Denies: Eye discharge, Vision change ENT: Denies: Congestion, Throat pain Respiratory: Denies: Cough, Dyspnea Cardiovascular: Denies: Chest pain, Edema, Palpitations, Syncope Endocrine: Denies: Fatigue, Polyuria Gastrointestinal: Denies: Abdominal pain, Diarrhea, Nausea, Vomiting Genitourinary: Denies: Dysuria, Frequency, Hematuria Musculoskeletal: Reports: Arthralgia. Denies: Back pain, Joint swelling, Myalgia Skin: Reports: Other (abrasion to scalp and elbow). Denies: Bruising, Change in color, Rash Neurological: Denies: Confusion, Headache, Numbness, Tingling, Weakness Psychiatric: Denies: Anxiety Hematological/Lymphatic: Denies: Easy bleeding, Easy bruising Past Medical History - SOCIAL HISTORY Smoking Status: Never smoker Drug Use: None - RESPIRATORY Hx Respiratory Disorders: No - CARDIOVASCULAR Hx Cardio Disorders: Yes Hx Heart Attack: Yes Hx Hypertension: Yes - NEURO Hx Neuro Disorders: No - GI Hx GI Disorders: Yes Hx Reflux: Yes Comment:: bowel obstruction - Hx Genitourinary Disorders: Yes Hx Prostate Problems: Yes - ENDOCRINE Hx Endocrine Disorders: Yes Hx Diabetes: Yes - MUSCULOSKELETAL Hx Musculoskeletal Disorders: Yes Hx Arthritis: Yes - PSYCH Hx Psych Problems: No - HEMATOLOGY/ONCOLOGY Hx Hematology/Oncology Disorders: Yes Hx Cancer: Yes (Colon) Hx Chemotherapy: No Hx Radiation Therapy: Yes Family Medical History Hx Heart Disease: Mother Physical Exam - General General Appearance: Alert, Oriented x3, Cooperative, No acute distress Limitations: No limitations - Head Head exam: negative: Atraumatic Head exam detail: Abrasion (left posterior scalp small abrasion). negative: Contusion, Hematoma, Laceration - Eye Eye exam: Normal appearance, PERRL. negative: Conjunctival injection, Scleral icterus - ENT ENT exam: Normal exam, Mucous membranes moist Ear exam: Normal external inspection Nasal Exam: Normal inspection Mouth exam: Normal external inspection - Neck Neck exam: Normal inspection, Full ROM. negative: Tenderness - Respiratory Respiratory exam: Normal lung sounds bilaterally. negative: Chest wall tenderness, Respiratory distress, Rhonchi, Stridor, Wheezes - Cardiovascular Cardiovascular Exam: Regular rate, Normal rhythm, Normal heart sounds Peripheral Pulses: 2+: Radial (R), Radial (L) - GI/Abdominal GI/Abdominal exam: Soft. negative: Distended, Guarding, Tenderness - Rectal Rectal exam: Deferred - exam: Deferred - Extremities Extremities exam: Full ROM, Tenderness (Normal inspection of bilateral lower extermities, mild pain with log roll, no significant shortening, mildly tender left lateral hip). negative: Normal inspection (abrasion, small, left elbow), Calf tenderness, Joint swelling, Normal capillary refill, Pedal edema Image of Full Body: 1 - 2cm abrasion, full ROM, non tender 2 - tender lateral hip, negative log roll, mild tenderness, no significant pain with hip flexion 3 - 1cm abrasion - Back Back exam: Reports: Normal inspection. Denies: CVA tenderness (R), CVA tenderness (L), Muscle spasm, Paraspinal tenderness, Rash noted, Tenderness, Vertebral tenderness - Neurological Neurological exam: Alert, Oriented X3. negative: Altered, Motor sensory deficit - Psychiatric Psychiatric exam: Normal affect, Normal mood - Skin Skin exam: Abrasion Course - Reevaluation(s) Reevaluation #1: 04/03/19 08:58 The HCT was negative for significant changes from prior with stable chronic findings. 04/03/19 09:[address] scan is negative for acute process. 04/03/19 09:04 The CBC was reviewed. No acute abnormality. 04/03/19 09:12 CT of the Pelvis was reviewed. Acute non-displaced to minimally displaced spiral fracture of the proximal femur laterally involving the greater trochanter and immediate sub trochanteric region. The patient and family prefer [facility] for transfer. 04/03/19 09:25 Dr Jessica accepts the patient for transfer to [facility]. He will arrange an orthopedic consultation upon admission. 04/03/19 09:38 Bed was assigned at [facility] Medical Decision Making - Lab Data Result diagrams: 04/03/19 08:55 04/03/19 08:55 Disposition Disposition: Transfer Clinical Impression: Hip fracture Qualifiers: Encounter type: initial encounter Fracture type: closed Laterality: left Qualified Code(s): S72.002A - Fracture of unspecified part of neck of left femur, initial encounter for closed fracture Disposition: Acute Care Hospital Transfer Transfer To: [facility] Reason For Transfer: Hip fracture Accepting Physician: Jaskaran Time Discussed w/Accepting Physician: 09:26 Condition: (2) Stable Time of Disposition: 09:26 Quality - Quality Measures Quality Measures: N/A, Blunt Head Trauma (>2yr) - [place] Coma Scale Eye Response: (4) Open spontaneously Motor Response: (6) Obeys commands Verbal Response: (5) Oriented [place] Total: 15 - Blunt Head Trauma - Adult Quality Measure: Measure #415: Utilization of CT for Minor Blunt Head Trauma ICD10 Codes Entered: Yes Was CT ordered: Yes Does Patient Have Any of the Following: Taking Antiplatelet Med [place] Score: [address] for Minor Blunt Head Trauma: Patient Excluded [G9531] Indications For CT: Age 65 Years and Older - Blood Pressure Screening Does Patient Have Any of the Following: Active Dx of HTN Blood Pressure Classification: Pre-Hypertensive BP Reading Systolic Measurement: 161 Diastolic Measurement: 85 Screening for High Blood Pressure: Patient Exclusion, Hx of HTN [G9744]
[2019-04-03 09:03] LABS: ABSOLUTE NEUTROPHIL COUNT 6.29; BASO % 0.3 % (0-6); EOS % 2.3 % (0-6); GRAN % 72.6 % (47-80); HEMOGLOBIN 15.2 gm/dl (14.0-18.0); LYMPH % 16.6 % (16-45); MEAN CELL VOLUME 86.5 fl (81-97); MEAN CORPUSCULAR HEMOGLOBIN 29.2 pg (27-33); MEAN CORPUSCULAR HGB CONC 33.8 g/dl (32-36); MEAN PLATELET VOLUME 11.6 fl (7.4-10.4); MONO % 8.2 % (0-9); PLATELET COUNT 209 K/uL (130-400); RED CELL DISTRIBUTION WIDTH 13.6 % (11.5-14.5); WHITE BLOOD COUNT W/O DIFF 8.7 K/uL (4.2-12.2)
[2019-04-03] MEDS ORDERED: 0.9 % SODIUM CHLORIDE 1000ML 1,000 ML IV ONE (09:07)
[2019-04-03 09:14] LABS: INR 1.2; PARTIAL THROMBOPLASTIN TIME 30.1 SECONDS (24.5-39.1); PROTHROMBIN TIME (PATIENT) 12.4 SECONDS (9.5-12.1)
[2019-04-03 09:16] LABS: BLOOD UREA NITROGEN 12 mg/dL (8-23); CREATININE 0.9 mg/dL (0.7-1.2); EST GLOMERULAR FILTRATION RATE > 60 mL/min
[2019-04-03] MEDS ORDERED: ACETAMINOPHEN 1,000 MG/100 ML BTL IVPB ONE (09:16)
[2019-04-03 09:19] LABS: GLUCOSE,RANDOM 282 mg/dL (74-109)
[2019-04-03 09:22] LABS: ALB/GLOB RATIO 1.9 (1.1-1.8); ALBUMIN 3.9 g/dL (4.0-5.0); ALKALINE PHOSPHATASE 106 U/L (40-129); ALT/SGPT 14 U/L (<41); AST/SGOT 14 U/L (10.0-50.0)
[2019-04-03] MEDS ORDERED: Diph,Pert(Acell),Tet Vac 0.5 ML SYR IM ONE (09:58)
[2019-04-03] MEDS ORDERED: LEVEMIR FLEXTOUCH 100 UNIT/ML INSULIN PEN SQ ONE (10:46)
[2019-04-03] MEDS ORDERED: HUMULIN R 100 UNIT/ML VIAL SQ ONE (10:48)
[2019-04-03] MEDS ORDERED: CARVEDILOL 3.125 MG TABLET PO STA (11:00)
[2019-04-03] MEDS ORDERED: CARVEDILOL 3.125 MG TABLET PO SCH (11:00)
[2019-04-03] MEDS ORDERED: AMLODIPINE BESYLATE 5MG TAB PO STA (11:09)
--- NOTE | 2019-04-04 21:41 | CT SCAN REPORT ---
EXAM: CT SCAN HEAD WO CONTRAST HISTORY: FALL WITH TRAUMA TO HEAD. TECHNIQUE: Routine noncontrast CT of the brain. COMPARISON: CT brain without contrast dated 03/20/2019. FINDINGS: The subarachnoid spaces remain moderately dilated consistent with generalized atrophy. The ventricles are borderline to mildly enlarged. Mild periventricular and subcortical white matter lucencies are redemonstrated, most pronounced in the superior left frontal region. These are nonspecific but likely areas of chronic microvascular ischemia. There is a subtle focus of hyperdensity redemonstrated in the parasagittal left frontal lobe measuring 4 mm x 5 mm. It is unchanged given differences in technique and is likely a benign focus of calcification. No definite new area of abnormally increased or decreased attenuation is noted throughout the brain substance. No new abnormal extraaxial fluid collection nor skull fracture. Mild soft tissue swelling in the left anterior frontal scalp. The orbits appear intact. The visualized paranasal sinuses are stable in appearance with retention cyst or polyp redemonstrated in the left frontal sinus. IMPRESSION: 1. NO CT EVIDENCE OF ACUTE MAJOR VESSEL INFARCT, INTRACRANIAL HEMORRHAGE, MASS, NOR SKULL FRACTURE WITHOUT CHANGE IN APPEARANCE OF THE BRAIN SINCE 03/20/2019. 2. GENERALIZED ATROPHY. WHITE MATTER LUCENCIES AGAIN NOTED SCATTERED IN EACH CEREBRAL HEMISPHERE CONSISTENT WITH CHRONIC MICROVASCULAR ISCHEMIA. STABLE SMALL HYPERDENSE FOCUS WITHIN THE PARASAGITTAL LEFT FRONTAL LOBE CONSISTENT WITH BENIGN CALCIFICATION. 3. RETENTION CYST VS. POLYP REDEMONSTRATED IN THE LEFT FRONTAL SINUS. 4. MILD SOFT TISSUE SWELLING IN THE LEFT ANTERIOR FRONTAL SCALP. JOB NUMBER: [id number] [facility]
--- NOTE | 2019-04-04 21:49 | CT SCAN REPORT ---
EXAM: CT SCAN CERVICAL SPINE WO CONTRAST HISTORY: FALL WITH TRAUMA TO HEAD. TECHNIQUE: Thin-collimation helical CT examination of the cervical spine is performed without intravenous contrast. COMPARISON: CT of the cervical spine without contrast dated 03/20/2019. FINDINGS: There is mild osteopenia. There is straightening of the normal cervical lordosis. Minimal anterolisthesis of C4 on C5, C5 on C6, as well as T1 on T2 and T2 on T3. This does not appear significantly changed and likely relates to facet arthropathy. The vertebral bodies are otherwise normal in alignment and height. No acute fracture, destructive bone lesion, or prevertebral soft tissue swelling demonstrated. Moderate to severe hypertrophic degenerative changes of the atlantodental joint redemonstrated. Multilevel degenerative disc/degenerative endplate changes are identified, most pronounced at the C6-C7 and C7-T1 levels, where the changes are advanced. Multilevel uncovertebral joint spurring and bilateral facet arthropathy causing multilevel neural foraminal narrowing of varying degrees. This pattern does not appear significantly changed in the interval. No new gross cervical spinal stenosis. Mild to moderate atherosclerotic calcification of the carotid bifurcations redemonstrated. No new cervical mass nor adenopathy. Mild biapical lung scarring. Moderate to advanced hypertrophic degenerative changes of the sternoclavicular joints redemonstrated. IMPRESSION: 1. NO ACUTE FRACTURE, SUSPICIOUS SUBLUXATION, OR PREVERTEBRAL SOFT TISSUE SWELLING. 2. MULTILEVEL DEGENERATIVE CHANGES REDEMONSTRATED ASSOCIATED WITH MULTILEVEL BILATERAL NEURAL FORAMINAL NARROWING. MINIMAL MULTILEVEL SPONDYLOLISTHESIS AGAIN IDENTIFIED, STABLE, LIKELY DUE TO DEGENERATIVE DISEASE. JOB NUMBER: [id number] [facility]
--- NOTE | 2019-04-04 22:00 | CT SCAN REPORT ---
EXAM: CT SCAN PELVIS WO CONTRAST HISTORY: LEFT HIP PAIN POST FALL. BILATERAL HIP ARTHROPLASTY. TECHNIQUE: Thin-collimation helical CT examination of the pelvis is performed without oral or intravenous contrast administration. COMPARISON: CT abdomen and pelvis with contrast dated 11/22/2015. FINDINGS: No intrapelvic mass nor lymphadenopathy, though evaluation of the inferior pelvis is limited by beam-hardening artifact from bilateral hip prostheses. No dilatation or wall thickening of visualized bowel. The prostate gland is enlarged. The urinary bladder is moderately distended. Small cellulose/diverticula are noted arising from the right anterior superior urinary bladder wall. No other focal urinary bladder abnormality demonstrated, though evaluation is limited by beam-hardening artifact inferiorly. A penile prosthesis remains in place with the reservoir bulb in the right hemipelvis. Mild fat-density prominence redemonstrated in the left inguinal canal consistent with lipoma or fat within a small inguinal hernia sac. There is diffuse osteopenia. There are moderate to advanced degenerative changes of the visualized lower lumbar spine. There are mild degenerative changes of the sacroiliac joints. Bilateral hip arthroplasty changes are present. There is a spiral-type fracture involving the anterolateral aspect of the greater trochanter and subtrochanteric region of the proximal left femur. No associated gross hematoma. No other acute fracture is seen. The hip prosthetic components otherwise appear well seated. IMPRESSION: 1. STATUS POST BILATERAL TOTAL HIP ARTHROPLASTY CHANGES. THE PROSTHETIC COMPONENTS APPEAR WELL SEATED. THERE IS, HOWEVER, EVIDENCE OF OF A NONDISPLACED TO MINIMALLY DISPLACED SPIRAL-TYPE FRACTURE OF THE PROXIMAL LEFT FEMUR INCLUDING THE GREATER TROCHANTER AND IMMEDIATE SUBTROCHANTERIC PORTION. 2. NO OTHER ACUTE FRACTURE. 3. CHRONIC FINDINGS, DISCUSSED ABOVE. JOB NUMBER: [id number] [facility]
== END 2019-04-03 11:15 | disposition short-term general hospital (02) ==
LOC: ER 07:43
DX: S72.22XA Displaced subtrochanteric fracture of left femur, initial encounter for closed fracture (principal); S72.112A Displaced fracture of greater trochanter of left femur, initial encounter for closed fracture; S09.90XA Unspecified injury of head, initial encounter; S00.01XA Abrasion of scalp, initial encounter; S40.812A Abrasion of left upper arm, initial encounter; W22.8XXA Striking against or struck by other objects, initial encounter; Y92.121 Bathroom in nursing home as the place of occurrence of the external cause; E11.9 Type 2 diabetes mellitus without complications; Z79.4 Long term (current) use of insulin; I10 Essential (primary) hypertension; I25.2 Old myocardial infarction
CPT/HCPCS: 70450; 72125; 72192; 80053; 85025; 85610; 85730; 90715; 96365; 96372; 99285; J7030

== ENCOUNTER 2019-04-25 09:09 | Emergency (ER) | payer MEDICARE ==
[2019-04-25] MEDS ORDERED: LIDOCAINE UROJECT 10 ML APPL MM ONE (09:20)
--- NOTE | 2019-04-25 09:20 | Emergency Department Record ---
History of Present Illness - General Chief complaint: Male Urogenital Problem Stated complaint: PULLED OUT CATH Time Seen by Provider: 04/25/19 09:16 Source: Patient Mode of Arrival: Ambulatory Limitations: No limitations - History of Present Illness Initial comments: 88 yo male presents after dislodging his tobar catheter at a local assisted living center. He states it was uncomfortable at the time. He states he understands he needs one in and agrees with replacement. No complaints at this time. A small amount of blood noted at the tip of the urethral meatus. He denies pain. He was recently treated for a hip fracture non operatively and spent time on the swing bed unit at [facility] Complaint: Other -: Hour(s) Location: Penis Radiation: None Severity: Mild Quality: Other (No pain) Consistency: Constant Improves with: None Worsens with: None Indwelling catheter Reports: Denies other symptoms - Related Data Home Medications Medication Instructions Recorded Confirmed Last Taken Aspirin 325 mg PO ASDIR 04/25/19 04/25/19 04/25/19 08:00 Tramadol HCl 50 mg PO Q6H 04/25/19 04/25/19 Unknown Previous Rx's Medication Instructions Recorded Tamsulosin HCl [Flomax] 0.4 mg PO QHS cap.er.24h 05/07/17 Acetaminophen [Tylenol 325Mg] 650 mg PO Q6H PRN #120 tablet 04/24/19 Aspirin [Ecotrin] 81 mg PO DAILY #100 tab.dr 04/24/19 Carvedilol [Coreg] 6.25 mg PO BID #60 tablet 04/24/19 Tramadol HCl [Ultram] 50 mg PO Q6H PRN #10 tablet 04/24/19 Allergies Allergy/AdvReac Type Severity Reaction Status Date / Time pregabalin [From Lyrica] Allergy PT UNSURE Verified 04/25/19 09:11 OF REACTION triamterene [From Dyazide] AdvReac Mild ITCHING Verified 04/25/19 09:11 Review of Systems Constitutional: Denies: Chills, Fever, Malaise, Weakness Eyes: Denies: Eye discharge ENT: Denies: Congestion, Throat pain Respiratory: Denies: Cough, Dyspnea Cardiovascular: Denies: Chest pain, Palpitations, Syncope Endocrine: Denies: Fatigue, Polydipsia, Polyuria Gastrointestinal: Denies: Abdominal pain, Diarrhea, Nausea, Vomiting Genitourinary: Reports: Hematuria Musculoskeletal: Denies: Arthralgia, Back pain, Myalgia, Other Skin: Denies: Bruising, Change in color, Rash Neurological: Denies: Headache Psychiatric: Denies: Anxiety Hematological/Lymphatic: Denies: Easy bleeding, Easy bruising Past Medical History - SOCIAL HISTORY Smoking Status: Never smoker - RESPIRATORY Hx Respiratory Disorders: No - CARDIOVASCULAR Hx Cardio Disorders: Yes Hx Heart Attack: Yes Hx Hypertension: Yes - NEURO Hx Neuro Disorders: Yes Hx Dementia: Yes - GI Hx GI Disorders: Yes Hx Reflux: Yes Comment:: bowel obstruction - Hx Genitourinary Disorders: Yes Hx Bladder Problem: Yes (retention) Hx Prostate Problems: Yes Comment:: tobar in place upon arrival - ENDOCRINE Hx Diabetes: Yes - MUSCULOSKELETAL Hx Musculoskeletal Disorders: Yes Hx Arthritis: Yes Comment:: hx bilateral hip replacement - PSYCH Hx Psych Problems: No - HEMATOLOGY/ONCOLOGY Hx Hematology/Oncology Disorders: Yes Hx Cancer: Yes (Colon) Hx Chemotherapy: No Hx Radiation Therapy: Yes Family Medical History Hx Heart Disease: Mother Physical Exam - General General Appearance: Alert, Oriented x3, Cooperative, No acute distress Limitations: No limitations - Head Head exam: Atraumatic, Normal inspection - Eye Eye exam: Normal appearance, PERRL. negative: Conjunctival injection, Scleral icterus - ENT ENT exam: Normal exam, Mucous membranes moist Ear exam: Normal external inspection Nasal Exam: Normal inspection Mouth exam: Normal external inspection - Neck Neck exam: Normal inspection - Respiratory Respiratory exam: Normal lung sounds bilaterally. negative: Respiratory distress - Cardiovascular Cardiovascular Exam: Regular rate, Normal rhythm, Normal heart sounds - GI/Abdominal GI/Abdominal exam: Soft. negative: Distended, Guarding, Rebound, Rigid, Tenderness - Rectal Rectal exam: Deferred - exam: Circumcision, Other (small blood at the meatus). negative: Normal inspection, Scrotal swelling, Testicular tenderness, Urethral discharge, Vertical testicular lie - Extremities Extremities exam: Normal inspection - Back Back exam: Denies: CVA tenderness (R), CVA tenderness (L) - Neurological Neurological exam: Alert, Oriented X3 - Psychiatric Psychiatric exam: Normal affect, Normal mood - Skin Skin exam: Dry, Intact, Normal color, Warm Course - Reevaluation(s) Reevaluation #1: 04/25/19 09:46 Tobar placed by RN with out difficulty. 16Fr. Some initial bloody drainage 04/25/19 10:34 I discussed the tobar with the daughter and the patient We discussed reasons to return for a recheck or any concerns with the function of the tobar Keflex 7 days ordered given possible urethra trauma Disposition Disposition: Discharge Clinical Impression: Urinary retention Disposition: Home, Self-Care Condition: (1) Good Instructions: Tobar Catheter Placement and Care (ED) Additional Instructions: Return if you have any problems with the functioning of the tobar catheter, fever, pain, obstruction Take the Keflex for one week three times daily Do not remove the catheter on your own Forms: Patient Portal Access Time of Disposition: 09:48 Quality - Quality Measures Quality Measures: N/A - Blood Pressure Screening Does Patient Have Any of the Following: No Blood Pressure Classification: Pre-Hypertensive BP Reading Systolic Measurement: 129 Diastolic Measurement: 66 Screening for High Blood Pressure: < Pre-Hypertensive BP, F/U Documented > [G8950] Pre-Hypertensive Follow-up Interventions: Referral to alternative/primary care provider.
== END 2019-04-25 10:45 | disposition home or self-care (01) ==
LOC: ER 09:09
DX: T83.091A Other mechanical complication of indwelling urethral catheter, initial encounter (principal); R33.8 Other retention of urine; I10 Essential (primary) hypertension; I25.2 Old myocardial infarction; E11.9 Type 2 diabetes mellitus without complications; F03.90 Unspecified dementia, unspecified severity, without behavioral disturbance, psychotic disturbance, mood disturbance, and anxiety; Y65.8 Other specified misadventures during surgical and medical care; Y92.129 Unspecified place in nursing home as the place of occurrence of the external cause
CPT/HCPCS: 99283

== ENCOUNTER 2019-05-02 16:24 | Emergency (ER) | payer MEDICARE ==
--- NOTE | 2019-05-02 17:08 | Emergency Department Record ---
History of Present Illness - General Chief complaint: Pain Stated complaint: HIP PAIN Time Seen by Provider: 05/02/19 16:51 Source: Patient, RN notes reviewed Mode of Arrival: Wheelchair - History of Present Illness Initial comments: patient has left knee pain and fell since he went to [facility] about one week ago and he was in the swing bed at [facility] for about two weeks. - Related Data Home Medications Medication Instructions Recorded Confirmed Last Taken Cephalexin 500 mg PO TID 05/02/19 05/02/19 05/02/19 Duloxetine HCl 30 mg PO QHS 05/02/19 05/02/19 05/02/19 Duloxetine HCl 60 mg PO DAILY 05/02/19 05/02/19 05/02/19 Felodipine [Felodipine ER] 10 mg PO DAILY 05/02/19 05/02/19 05/02/19 Insulin Aspart [Novolog] 4 unit SQ DAILY 05/02/19 05/02/19 05/02/19 Insulin Glargine,Hum.rec.anlog 35 unit SQ QAM 05/02/19 05/02/19 05/02/19 [Lantus] Omeprazole 20 mg PO QAM 05/02/19 05/02/19 05/02/19 Previous Rx's Medication Instructions Recorded Tamsulosin HCl [Flomax] 0.4 mg PO QHS cap.er.24h 05/07/17 Acetaminophen [Tylenol 325Mg] 650 mg PO Q6H PRN #120 tablet 04/24/19 Aspirin [Ecotrin] 81 mg PO DAILY #100 tab. 04/24/19 Carvedilol [Coreg] 6.25 mg PO BID #60 tablet 04/24/19 Tramadol HCl [Ultram] 50 mg PO Q6H PRN #10 tablet 04/24/19 Polyethylene Glycol 3350 [Miralax] 1 packet PO DAILY #30 packet 05/02/19 Allergies Allergy/AdvReac Type Severity Reaction Status Date / Time pregabalin [From Lyrica] Allergy PT UNSURE Verified 05/02/19 16:33 OF REACTION triamterene [From Dyazide] AdvReac Mild ITCHING Verified 05/02/19 16:33 Travel Screening - Travel/Exposure Within Last 30 Days Have you traveled within the last 30 days?: No Review of Systems Reviewed: No additional complaints except as noted below Constitutional: Reports: As per HPI. Denies: Chills, Fever, Malaise, Night sweats, Weakness, Weight change Eyes: Reports: As per HPI. Denies: Eye discharge, Eye pain, Photophobia, Vision change ENT: Reports: As per HPI. Denies: Congestion, Dental pain, Ear pain, Epistaxis, Hearing loss, Throat pain Respiratory: Reports: As per HPI. Denies: Cough, Dyspnea, Hemoptysis, Stridor, Wheezes Cardiovascular: Reports: As per HPI. Denies: Arrhythmia, Chest pain, Dyspnea on exertion, Edema, Murmurs, Orthopnea, Palpitations, Paroxysmal nocturnal dyspnea, Rheumatic Fever, Syncope Endocrine: Reports: As per HPI. Denies: Fatigue, Heat or cold intolerance, Polydipsia, Polyuria Gastrointestinal: Reports: As per HPI. Denies: Abdominal pain, Constipation, Diarrhea, Hematemesis, Hematochezia, Melena, Nausea, Vomiting Genitourinary: Reports: As per HPI. Denies: Dysuria, Frequency, Hematuria, Incontinence, Retention, Testicular pain, Testicular mass, Urgency Musculoskeletal: Reports: As per HPI. Denies: Arthralgia, Back pain, Gout, Joint swelling, Myalgia, Neck pain Skin: Reports: As per HPI. Denies: Bruising, Change in color, Change in hair/nails, Lesions, Pruritus, Rash Neurological: Reports: As per HPI. Denies: Abnormal gait, Confusion, Headache, Numbness, Paresthesias, Seizure, Tingling, Tremors, Vertigo, Weakness Psychiatric: Reports: As per HPI. Denies: Anxiety, Auditory hallucinations, Depression, Homicidal thoughts, Suicidal thoughts, Visual hallucinations Hematological/Lymphatic: Reports: As per HPI. Denies: Anemia, Blood Clots, Easy bleeding, Easy bruising, Swollen glands Past Medical History - SOCIAL HISTORY Smoking Status: Never smoker Alcohol Use: None Drug Use: None - RESPIRATORY Hx Respiratory Disorders: No - CARDIOVASCULAR Hx Cardio Disorders: Yes Hx Heart Attack: Yes Hx Hypertension: Yes - NEURO Hx Neuro Disorders: Yes Hx Dementia: Yes - GI Hx GI Disorders: Yes Hx Reflux: Yes Comment:: bowel obstruction - Hx Genitourinary Disorders: Yes Hx Bladder Problem: Yes (retention) Hx Prostate Problems: Yes Comment:: tobar in place upon arrival - ENDOCRINE Hx Endocrine Disorders: Yes Hx Diabetes: Yes - MUSCULOSKELETAL Hx Musculoskeletal Disorders: Yes Hx Arthritis: Yes Comment:: hx bilateral hip replacement - PSYCH Hx Psych Problems: No - HEMATOLOGY/ONCOLOGY Hx Hematology/Oncology Disorders: Yes Hx Cancer: Yes (Colon) Hx Chemotherapy: No Hx Radiation Therapy: Yes Family Medical History Any Significant Family History?: Yes Hx Heart Disease: Mother Physical Exam - General General Appearance: Alert, Oriented x3, Cooperative, No acute distress - Head Head exam: Normal inspection - Eye Eye exam: Normal appearance, PERRL Pupils: Normal accommodation - ENT ENT exam: Normal exam, Mucous membranes moist, Normal external ear exam, Normal orophraynx, TM's normal bilaterally Ear exam: Normal external inspection. negative: External canal tenderness Nasal Exam: Normal inspection. negative: Discharge, Sinus tenderness Mouth exam: Normal external inspection, Tongue normal Teeth exam: Normal inspection. negative: Dental caries Throat exam: Normal inspection. negative: Tonsillar erythema, Tonsillar exudate - Neck Neck exam: Normal inspection, Full ROM. negative: Tenderness - Respiratory Respiratory exam: Normal lung sounds bilaterally. negative: Respiratory distress - Cardiovascular Cardiovascular Exam: Regular rate, Normal rhythm, Normal heart sounds - GI/Abdominal GI/Abdominal exam: Soft, Normal bowel sounds. negative: Tenderness - Rectal Rectal exam: Deferred - exam: Deferred - Extremities Extremities exam: Normal inspection, Full ROM, Normal capillary refill, Tenderness (left knee , no hip pain with moving the left hip) - Back Back exam: Reports: Normal inspection, Full ROM. 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 fractures seen) - Lab Data Result diagrams: 05/02/19 17:15 05/02/19 17:15 Disposition Clinical Impression: Knee pain, left Qualifiers: Chronicity: acute Qualified Code(s): M25.562 - Pain in left knee 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 Condition: (2) Stable Instructions: Knee Pain (ED), Contusion in Adults (ED) Additional Instructions: follow up with Dr Xiong in one week tylenol and tramadol for pain Prescriptions: Polyethylene Glycol 3350 [Miralax] 1 packet PO DAILY #30 packet Forms: Patient Portal Access Time of Disposition: 18:17 Quality - Quality Measures Quality Measures: N/A - Blood Pressure Screening Does Patient Have Any of the Following: No, Active Dx of HTN Blood Pressure Classification: Pre-Hypertensive BP Reading Systolic Measurement: 146 Diastolic Measurement: 87 Screening for High Blood Pressure: Patient Exclusion, Hx of HTN [G9744]
[2019-05-02 17:26] LABS: ABSOLUTE NEUTROPHIL COUNT 8.58; BASO % 0.1 % (0-6); EOS % 1.5 % (0-6); GRAN % 76.3 % (47-80); HEMATOCRIT 38.4 % (42.0-52.0); HEMOGLOBIN 12.6 gm/dl (14.0-18.0); LYMPH % 11.7 % (16-45); MEAN CELL VOLUME 87.9 fl (81-97); MEAN CORPUSCULAR HEMOGLOBIN 28.8 pg (27-33); MEAN CORPUSCULAR HGB CONC 32.8 g/dl (32-36); MEAN PLATELET VOLUME 10.1 fl (7.4-10.4); MONO % 10.4 % (0-9); PLATELET COUNT 348 K/uL (130-400); RED BLOOD COUNT 4.37 M/uL (4.40-5.70); RED CELL DISTRIBUTION WIDTH 14.4 % (11.5-14.5); WHITE BLOOD COUNT W/O DIFF 11.3 K/uL (4.2-12.2)
[2019-05-02 17:36] LABS: BLOOD UREA NITROGEN 30 mg/dL (8-23); CREATININE 1.2 mg/dL (0.7-1.2); EST GLOMERULAR FILTRATION RATE > 60 mL/min
[2019-05-02 17:39] LABS: GLUCOSE,RANDOM 154 mg/dL (74-109)
--- NOTE | 2019-05-04 19:28 | RADIOLOGY REPORT ---
EXAM: KNEE, LEFT 3 VIEWS HISTORY: LEFT KNEE PAIN AFTER FALL. COMPARISON: 03/20/19. ENCOUNTER: Initial. TECHNIQUE: Three views of the left knee. FINDINGS: Severe joint space narrowing and hypertrophic spurring throughout the knee. Possible intraarticular loose bodies at the anterior aspect of the knee joint. No acute bone or joint abnormality is identified. No suprapatellar joint effusion. IMPRESSION: SEVERE DEGENERATIVE CHANGES IN THE LEFT KNEE WITHOUT EVIDENCE FOR ACUTE FRACTURE OR DISLOCATION. JOB NUMBER: [id number] [facility]
== END 2019-05-02 18:53 ==
LOC: ER 16:24
DX: M25.562 Pain in left knee (principal); M25.552 Pain in left hip; G89.11 Acute pain due to trauma; Z91.81 History of falling; W19.XXXA Unspecified fall, initial encounter; Y92.129 Unspecified place in nursing home as the place of occurrence of the external cause; I10 Essential (primary) hypertension; E11.9 Type 2 diabetes mellitus without complications; I25.2 Old myocardial infarction
CPT/HCPCS: 80048; 85025; 99284

== ENCOUNTER 2019-05-11 09:04 | Inpatient (IN) | payer MEDICARE ==
[2019-05-11] MEDS ORDERED: LIDOCAINE UROJECT 10 ML APPL MM ONE (09:20)
[2019-05-11] MEDS ORDERED: ACETAMINOPHEN 325 MG TAB PO ONE (09:23)
[2019-05-11] MEDS ORDERED: 0.9 % SODIUM CHLORIDE 1,000 ML BAG IV ONE ×2 (09:23→11:30)
[2019-05-11] MEDS ORDERED: ACETAMINOPHEN 1,000 MG/100 ML BTL IVPB ONE (09:27)
--- NOTE | 2019-05-11 09:34 | Emergency Department Record ---
History of Present Illness - General Chief complaint: Male Urogenital Problem Stated complaint: AMB Time Seen by Provider: 05/11/19 09:08 Source: Family, EMS Mode of Arrival: EMS Limitations: Altered mental status - History of Present Illness Initial comments: The patient is here from [facility] due to being found on the floor this AM confused and with a fever. The patient has multiple medical problems and has been in and out of [facility] this year due to many issues. He recently had a Tobar catheter placed due to bladder outlet obstruction and has been at [facility] for a couple of months. The patient has moderate dementia chronically and does live at [facility] with his . He does normally ambulate minimally with a walker and is able to have a conversation at times per his daughter Miracle who is his DPOA. The daughter Miracle does state the patient was at his baseline yesterday but today clearly is not. Per the [facility] staff he was found on the floor at 8am by staff and was last seen at 7:30 am by staff in bed. There was no witnessed fall or injury. Presently the patient is breathing fast and is unable to answer any questions. When asked if he has pain anywhere he answers "yes". Per his DPOA he is a DNR. MD Complaint: Other Onset/Timin -: Hour(s) Indwelling catheter Reports: Other - Related Data Sexually active: No Previous Rx's Medication Instructions Recorded Tamsulosin HCl [Flomax] 0.4 mg PO QHS cap.er.24h 05/07/17 Aspirin [Ecotrin] 81 mg PO DAILY #100 tab. 04/24/19 Carvedilol [Coreg] 6.25 mg PO BID #60 tablet 04/24/19 Tramadol HCl [Ultram] 50 mg PO Q6H PRN #10 tablet 04/24/19 Polyethylene Glycol 3350 [Miralax] 1 packet PO DAILY #30 packet 05/02/19 Allergies Allergy/AdvReac Type Severity Reaction Status Date / Time pregabalin [From Lyrica] Allergy PT UNSURE Verified 05/11/19 09:09 OF REACTION triamterene [From Dyazide] AdvReac Mild ITCHING Verified 05/11/19 09:09 Travel Screening - Travel/Exposure Within Last 30 Days Have you traveled within the last 30 days?: No - Travel/Exposure Within Last Year Have you traveled outside the [place] in the last year?: No - Additonal Travel Details Have you been exposed to anyone with a communicable illness?: No - Travel Symptoms Symptom Screening: None Review of Systems ROS unobtainable: Due to mental status Past Medical History - SOCIAL HISTORY Smoking Status: Never smoker Alcohol Use: None Drug Use: None - RESPIRATORY Hx Respiratory Disorders: No - CARDIOVASCULAR Hx Cardio Disorders: Yes Hx Heart Attack: Yes Hx Hypertension: Yes - NEURO Hx Neuro Disorders: Yes Hx Dementia: Yes - GI Hx GI Disorders: Yes Hx Reflux: Yes Comment:: bowel obstruction - Hx Genitourinary Disorders: Yes Hx Bladder Problem: Yes (retention) Hx Prostate Problems: Yes Comment:: tobar in place upon arrival - ENDOCRINE Hx Endocrine Disorders: Yes Hx Diabetes: Yes - MUSCULOSKELETAL Hx Musculoskeletal Disorders: Yes Hx Arthritis: Yes Comment:: hx bilateral hip replacement - PSYCH Hx Psych Problems: No - HEMATOLOGY/ONCOLOGY Hx Hematology/Oncology Disorders: Yes Hx Cancer: Yes (Colon) Hx Chemotherapy: No Hx Radiation Therapy: Yes Family Medical History Any Significant Family History?: Yes Hx Heart Disease: Mother Physical Exam - General General Appearance: Alert, Mild distress - Head Head exam: Atraumatic, Normocephalic - Eye Eye exam: Normal appearance, PERRL - ENT Throat exam: Normal inspection. negative: Tonsillar erythema, Tonsillar exudate - Neck Neck exam: Normal inspection, Full ROM. negative: Tenderness - Respiratory Respiratory exam: Normal lung sounds bilaterally. negative: Respiratory distress - Cardiovascular Cardiovascular Exam: Regular rate, Normal rhythm, Tachycardia - GI/Abdominal GI/Abdominal exam: Soft, Tenderness (There is diffuse tenderness in all 4 quads.). negative: Rebound, Rigid - Extremities Extremities exam: Normal inspection, Full ROM, Normal capillary refill. negative: Tenderness - Neurological Neurological exam: Abnormal gait, Alert, Altered, Other. negative: Motor sensory deficit (The patient's hand grasps are equal bilaterally. ), Normal gait, Oriented X3 (The patient is only able to answer "yes" when asked if he has any pain. He does not answer when asked his name, age or date.) Course Vital Signs 05/11/19 09:09 Temperature 100.7 F H Pulse Rate 124 H Respiratory 28 H Rate Blood Pressure 100/65 Pulse Ox 97 - Reevaluation(s) Reevaluation #1: The patient is resting comfortably at this time. His HR is improving and his temp improved. I did discuss the UA results with the family and it does clearly appear at this time that the patient does have a UTI with possible Sepsis. 05/11/19 10:30 Reevaluation #2: I did discuss the results with the family and did discuss the fact that it ap pears the patient has Urosepsis at this time. His xrays do not demonstrate any acute abnormalities. The family does not want any aggressive treatment and does not want him transferred to a larger hospital. We will continue the IVF and antibiotics here and admit him to the hospital. I did discuss the case with Cecile (BLUEPRINT CLERK) and she does agree with the plan and will accept the admission. 05/11/19 11:39 Medical Decision Making - Data Complexity MDM Data: Labs Ordered and/or Reviewed, X-Ray Ordered and/or Reviewed, EKG Ordered and/or Reviewed - Lab Data Result diagrams: 05/11/19 08:50 05/11/19 08:50 - EKG Data -: EKG Interpreted by Me EKG: No Acute Changes, Unchanged From Previous (Sinus tach at 130, LVH, nonspecific T changes lateral leads, No significant change from old.) - Radiology Data Radiology results: Report reviewed (CXR: Neg Head and Cervical CT: Neg for any acute changes. Abd CT: Neg for acute changes.) Disposition Disposition: Admit Clinical Impression: UTI (urinary tract infection) Altered mental status Qualifiers: Altered mental status type: unspecified Qualified Code(s): R41.82 - Altered mental status, unspecified Disposition: Still a Patient at [facility] Decision to Admit: Admit from ER Decision to Admit Date: 05/11/19 Decision to Admit Time: 11:42 Accepting Physician: Sid Time Discussed w/Accepting Physician: 11:42 Condition: (2) Stable Time of Disposition: 11:42 Quality - Quality Measures Quality Measures: Blunt Head Trauma (>2yr) - Blunt Head Trauma - Adult Quality Measure: Measure #415: Utilization of CT for Minor Blunt Head Trauma ICD10 Codes Entered: Yes View Details: Yes Was CT ordered: Yes Does Patient Have Any of the Following: Taking Antiplatelet Med Holgate Score: Please complete Reymundo Coma Scale above Utilization of CT for Minor Blunt Head Trauma: Patient Excluded [G9531] - Blood Pressure Screening View Details: Yes Does Patient Have Any of the Following: Active Dx of HTN Blood Pressure Classification: Normal BP Reading Systolic Measurement: 107 Diastolic Measurement: 66 Screening for High Blood Pressure: Patient Exclusion, Hx of HTN [G9744]
[2019-05-11 10:01] LABS: ABSOLUTE NEUTROPHIL COUNT 5.22; HEMOGLOBIN 13.3 gm/dl (14.0-18.0); MEAN CELL VOLUME 88.6 fl (81-97); MEAN CORPUSCULAR HGB CONC 31.7 g/dl (32-36); MEAN PLATELET VOLUME 10.8 fl (7.4-10.4); PLATELET COUNT 257 K/uL (130-400); RED BLOOD COUNT 4.74 M/uL (4.40-5.70); RED CELL DISTRIBUTION WIDTH 14.1 % (11.5-14.5); WHITE BLOOD COUNT W/O DIFF 5.7 K/uL (4.2-12.2)
[2019-05-11 10:03] LABS: URINE APPEARANCE CLOUDY; URINE BILIRUBIN NEGATIVE (NEGATIVE); URINE BLOOD LARGE (NEGATIVE); URINE COLOR YELLOW; URINE KETONE NEGATIVE (NEGATIVE); URINE LEUKOCYTE ESTERASE SMALL (NEGATIVE); URINE NITRITE NEGATIVE (NEGATIVE)
[2019-05-11 10:05] LABS: URINE GLUCOSE (UA) >=1000 mg/dL (NEGATIVE)
[2019-05-11 10:09] LABS: URINE BACTERIA 4+; URINE EPITHELIAL CELLS NONE SEEN (FEW)
[2019-05-11 10:14] LABS: INR 1.2; PARTIAL THROMBOPLASTIN TIME 28.5 SECONDS (24.5-39.1); PROTHROMBIN TIME (PATIENT) 12.5 SECONDS (9.5-12.1)
[2019-05-11 10:16] LABS: BLOOD UREA NITROGEN 14 mg/dL (8-23); EST GLOMERULAR FILTRATION RATE > 60 mL/min
[2019-05-11 10:19] LABS: GLUCOSE,RANDOM 270 mg/dL (74-109); PLATELET ESTIMATE NORMAL (NORMAL)
[2019-05-11] MEDS ORDERED: CEFTRIAXONE 1GM/50ML BAG 1 GM/50 ML BAG IVPB ONE (10:19)
[2019-05-11 10:21] LABS: ALT/SGPT 17 U/L (<41); AST/SGOT 25 U/L (10.0-50.0)
[2019-05-11 10:22] LABS: ALB/GLOB RATIO 1.2 (1.1-1.8); ALBUMIN 3.3 g/dL (4.0-5.0); ALKALINE PHOSPHATASE 599 U/L (40-129)
[2019-05-11 10:47] LABS: CKMB 1.6 ng/mL (<6.73)
[2019-05-11] MEDS ORDERED: ACETAMINOPHEN 1,000 MG/100 ML BTL IVPB SCH (12:00)
[2019-05-11] MEDS: CEFTRIAXONE 1GM/50ML BAG 1 GM/50 ML BAG IVPB SCH ×2 (12:38→21:50)
[2019-05-11] MEDS: 0.9 % SODIUM CHLORIDE 1000ML 1,000 ML IV ONE ×2 (12:41→17:59)
--- NOTE | 2019-05-11 13:21 | History & Physical ---
History of Present Illness - Date of Service Date of Service for History & Physical: 05/11/19 - History of Present Illness Admitting Diagnosis: 1. Acute Urosepsis with confusion. History of Present Illness: Nick Salcedo is an 89 y.o. M who was brought in to the [facility] ED this a.m. d/t AMS. He has Dementia and is a poor historian at baseline and was unable to answer any questions appropriately when in the ED. He resides in [facility] with his , who also has dementia. He was found this a.m. on the floor with increased confusion from baseline and a fever. Spouse reported that he slid himself out of bed this a.m. because he was "hot". Staff at [facility] found him at approximately 0800 and had last seen him prior to that at 0730 and he was in his bed. Recently, he had a tobar catheter placed d/t bladder outlet obstruction and has pulled the catheter out on a few occasions. ROBYNCYRUS Cannon (daughter) stated that she noticed he had alot of blood and clotting in the tobar catheter bag yesterday but that he was at his baseline mentation. Normally, he is able to ambulate with a walker and have simple conversations. In the ED, he would answered "yes" when questioned about pain but otherwise did not respond. ROBYNCYRUS reported that pain is normally in his right hip. She reported that he has been receiving Cymbalta 90mg daily and Ultram 50mg which are relatively new medications for him. PMHx: CABG x 3 in 2007, DM2, HTN, High cholesterol, Dementia, hx of bowel obstruction, hx of colon ca PCP: Dr. Saurabh Xiong ED Course -Vitals: T 100.7, P 124, BP 100/65, RR 28, SpO2 97% on RA -Labs: WBC 5.7, Neutrophils 83, AG 18, Lactic Acid 5.2, Alk phos 599, Trop 0.031 -Xrays: Negative for acute process -New tobar catheter placed, U/A taken with new tobar placement 05/11/19 1300 Pt was observed lying on right side in bed. He would occasionally grab out into the air with his left hand. NITZA Cannon at bedside. Discussed DNR status and comfort care vs. aggressive care. NITZA stated that he is a DNR but that she would want some amount of aggressive treatment done. She reported that he has had increase in pain lately and was tried on [place], which made him very confused so then was recently put on Ultram and an increased dose of Cymbalta. She reported that as far as she knew, he has been eating and drinking lately. Discussed plan to give IV antibiotics and IVF and if condition worsened, he may need to be transferred to higher level of care in order to receive blood pressure support. DPOA verbalized understanding of this plan. [facility] was contacted regarding pt condition. [facility] staff reported that he doesn't drink much but did have a "good day" yesterday. They denied having any illnesses going around the facility. Staff reported that he usually sleeps well, unless he is painful. Travel Screening - Travel/Exposure Within Last 30 Days Have you traveled within the last 30 days?: No - Travel/Exposure Within Last Year Have you traveled outside the [place] in the last year?: No - Additonal Travel Details Have you been exposed to anyone with a communicable illness?: No - Travel Symptoms Symptom Screening: None Review of Systems ROS unobtainable: Due to mental status Past Medical History - SOCIAL HISTORY Smoking Status: Never smoker Alcohol Use: None Drug Use: None - RESPIRATORY Hx Respiratory Disorders: No - CARDIOVASCULAR Hx Cardio Disorders: Yes Hx Heart Attack: Yes Hx Hypertension: Yes - NEURO Hx Neuro Disorders: Yes Hx Dementia: Yes - GI Hx GI Disorders: Yes Hx Reflux: Yes Comment:: bowel obstruction - Hx Genitourinary Disorders: Yes Hx Bladder Problem: Yes (retention) Hx Prostate Problems: Yes Comment:: tobar in place upon arrival - ENDOCRINE Hx Endocrine Disorders: Yes Hx Diabetes: Yes - MUSCULOSKELETAL Hx Musculoskeletal Disorders: Yes Hx Arthritis: Yes Comment:: hx bilateral hip replacement - PSYCH Hx Psych Problems: No - HEMATOLOGY/ONCOLOGY Hx Hematology/Oncology Disorders: Yes Hx Cancer: Yes (Colon) Hx Chemotherapy: No Hx Radiation Therapy: Yes Family Medical History Any Significant Family History?: Yes Hx Heart Disease: Mother H&P Meds/Allergies - Allergies Allergies: Allergies Allergy/AdvReac Type Severity Reaction Status Date / Time pregabalin [From Lyrica] Allergy PT UNSURE Verified 05/11/19 09:09 OF REACTION triamterene [From Dyazide] AdvReac Mild ITCHING Verified 05/11/19 09:09 - Home Medications Previous Rx's Medication Instructions Recorded Tamsulosin HCl [Flomax] 0.4 mg PO QHS cap.er.24h 05/07/17 Aspirin [Ecotrin] 81 mg PO DAILY #100 tab 04/24/19 Carvedilol [Coreg] 6.25 mg PO BID #60 tablet 04/24/19 Tramadol HCl [Ultram] 50 mg PO Q6H PRN #10 tablet 04/24/19 Polyethylene Glycol 3350 [Miralax] 1 packet PO DAILY #30 packet 05/02/19 - Active Medications Active Medications: Current Medications Carvedilol (Coreg) 6.25 mg PO BID SHARMIN Acetaminophen (Ofirmev) 1,000 mg in 100 mls @ 400 mls/hr IVPB Q6H [facility] Last Admin: 05/11/19 12:39 Dose: Not Given Documented by: Sodium Chloride () 1,000 mls @ 125 mls/hr IV .Q8H ONE Stop: 05/11/19 20:28 Last Admin: 05/11/19 12:41 Dose: Not Given Documented by: CEFTRIAXONE 1GM/50ML BAG (Ceftriaxone 1 Gm-D5w Bag) 1 gm in 50 mls @ 100 mls/hr IVPB Q12H SHARMIN Last Admin: 05/11/19 12:38 Dose: Not Given Documented by: Insulin Aspart (Novolog Flexpen) 4 unit SQ DAILY SHARMIN Insulin Detemir (Levemir Flextouch) 35 unit SQ QAM SHARMIN Pantoprazole Sodium (Protonix) 40 mg PO DAILYAC [facility] Physical Exam - Vital Signs Vital Signs: Vital Signs - Last 24 Hrs Temp Pulse Pulse Pulse Resp BP BP 05/11/19 12:29 99.5 F 105 H 16 79/45 05/11/19 12:04 99.4 F 114 H 22 107/66 05/11/19 11:22 99.8 F H 126 H 20 107/85 05/11/19 09:09 100.7 F H 124 H 28 H 100/65 Pulse Ox 05/11/19 12:29 98 05/11/19 12:04 97 05/11/19 11:22 05/11/19 09:09 97 - General General Appearance: Mild distress Limitations: Altered mental status - Head Head exam: Atraumatic, Normocephalic - ENT ENT exam: Mucous membranes dry Throat exam: negative: Tonsillar erythema, Tonsillar exudate - Neck Neck exam: Normal inspection. negative: Tenderness - Respiratory Respiratory exam: Normal lung sounds bilaterally. negative: Respiratory distress - Cardiovascular Cardiovascular Exam: Regular rate, Normal rhythm, Tachycardia - GI/Abdominal GI/Abdominal exam: Soft, Normal bowel sounds. negative: Rebound, Rigid - exam: Other (blood around urethra and head of penis) - Extremities Extremities exam: Normal inspection, Full ROM, Normal capillary refill. negative: Joint swelling, Pedal edema, Tenderness - Back Back exam: Reports: Normal inspection. Denies: CVA tenderness (R), CVA tenderness (L) - Neurological Neurological exam: Altered. negative: Normal gait, Oriented X3 - Skin Skin exam: Intact Results - Labs Result Diagrams: 05/11/19 08:50 05/11/19 08:50 Labs Last 24 Hours: Laboratory Results - last 24 hr 05/11/19 05/11/19 05/11/19 08:50 08:50 08:50 WBC 5.7 RBC 4.74 Hgb 13.3 L Hct 42.0 MCV 88.6 MCH 28.0 MCHC 31.7 L RDW 14.1 Plt Count 257 MPV 10.8 H Neutrophils % 83.0 H Band Neutrophils % 4.0 Eosinophils % Not Reportable Basophils % Not Reportable Absolute Neutrophils 5.22 Lymphocytes 8.0 L Monocytes 5.0 Platelet Estimate Normal RBC Morphology Normal PT 12.5 H INR 1.2 APTT 28.5 Sodium 140 Potassium 3.5 Chloride 97 L Carbon Dioxide 25.0 Anion Gap 18.0 H BUN 14 Creatinine 1.0 Estimated GFR > 60 Random Glucose 270 H Lactic Acid Calcium 9.0 Total Bilirubin 1.00 AST 25 ALT 17 Alkaline Phosphatase 599 H Creatine Kinase CK-MB (CK-2) Troponin T 0.031 H Total Protein 6.0 L Albumin 3.3 L Globulin 2.7 Albumin/Globulin Ratio 1.2 Urine Color Urine Appearance Urine pH Ur Specific [place] Urine Protein Urine Glucose (UA) Urine Ketones Urine Blood Urine Nitrite Urine Bilirubin Urine Urobilinogen Ur Leukocyte Esterase Urine RBC Urine WBC Ur Epithelial Cells Urine Bacteria Acetone, Qual 05/11/19 05/11/19 05/11/19 08:50 08:50 09:50 WBC RBC Hgb Hct MCV MCH MCHC RDW Plt Count MPV Neutrophils % Band Neutrophils % Eosinophils % Basophils % Absolute Neutrophils Lymphocytes Monocytes Platelet Estimate RBC Morphology PT INR APTT Sodium Potassium Chloride Carbon Dioxide Anion Gap BUN Creatinine Estimated GFR Random Glucose Lactic Acid Calcium Total Bilirubin AST ALT Alkaline Phosphatase Creatine Kinase 33 L CK-MB (CK-2) 1.6 Troponin T Total Protein Albumin Globulin Albumin/Globulin Ratio Urine Color Yellow Urine Appearance Cloudy Urine pH 6.0 Ur Specific [place] 1.020 Urine Protein 100 mg/dl H Urine Glucose (UA) >=1000 mg/dl H Urine Ketones Negative Urine Blood Large H Urine Nitrite Negative Urine Bilirubin Negative Urine Urobilinogen 2.0 H Ur Leukocyte Esterase Small H Urine RBC Too numerous to cnt Urine WBC 10 - 15 Ur Epithelial Cells None seen Urine Bacteria 4+ Acetone, Qual Negative 05/11/19 10:45 WBC RBC Hgb Hct MCV MCH MCHC RDW Plt Count MPV Neutrophils % Band Neutrophils % Eosinophils % Basophils % Absolute Neutrophils Lymphocytes Monocytes Platelet Estimate RBC Morphology PT INR APTT Sodium Potassium Chloride Carbon Dioxide Anion Gap BUN Creatinine Estimated GFR Random Glucose Lactic Acid 5.2 H Calcium Total Bilirubin AST ALT Alkaline Phosphatase Creatine Kinase CK-MB (CK-2) Troponin T Total Protein Albumin Globulin Albumin/Globulin Ratio Urine Color Urine Appearance Urine pH Ur Specific [place] Urine Protein Urine Glucose (UA) Urine Ketones Urine Blood Urine Nitrite Urine Bilirubin Urine Urobilinogen Ur Leukocyte Esterase Urine RBC Urine WBC Ur Epithelial Cells Urine Bacteria Acetone, Qual VTE H&P Assessment - Risk for VTE Risk for VTE: Yes Risk Level: High Risk Assessment Date: 05/11/19 Risk Assessment Time: 13:00 VTE Orders Placed or Will Be Placed: No VTE Reason for No Prophylaxis: Contraindicated (risk outweighs benefit d/t high fall risk) Plan - Inpatient Certification Inpatient Certification: Admit to inpatient care: Based on my medical assessment, after consideration of patient's risk factors (age, co-morbidities and patient presenting symptoms and acuity), I expect that this patient will remain in the hospital greater than or equal to two midnights and that the services needed warrant inpatient care because: Patient Risk Factors: [Age, Co-morbities] Estimated length of stay: [48-72 hours] The patient may reasonably be expected to be discharged or transferred to a hospital within 96 hours after admission to [facility]. Services needed: [IV Therapy, Nursing Care, PT/OT] Post hospital care (if known): [Assisted Living] I certify that my determination is in accordance with my understanding of Medicare requirements for reasonable and necessary inpatient services. 05/11/19 21:30 - Detailed Diagnosis and Plan (1) Altered mental status Current Visit: Yes Status: Acute Qualifiers: Altered mental status type: unspecified Qualified Code(s): R41.82 - Altered mental status, unspecified Base Code: R41.82 - ALTERED MENTAL STATUS, UNSPECIFIED Priority: High Comment: 05/11/19 -WBC 5.7, Neutrophils 83 -Febrile, Tachycardic and Tachypneic -UA: [place], +Blood, Bacteria 4+ -C&S and blood cultures pending -IV antibiotics -Repeat labs in the a.m. (2) UTI (urinary tract infection) Current Visit: Yes Status: Acute Base Code: N39.0 - URINARY TRACT INFECTION, SITE NOT SPECIFIED Comment: 05/11/19 -U/A: [place], +blood, 4+ bacteria, WBCs 10-15 -C&S pending -Rocephin IV q. 12 hours (3) Sepsis Current Visit: Yes Status: Acute Base Code: A41.9 - SEPSIS, UNSPECIFIED ORGANISM Comment: 05/11/19 -Lactic Acid 5.2, Alkaline Phosphatase 599 -Febrile, Hypotensive, Tachycardic and Tachypneic -Likely d/t Urosepsis -IVF 1 L bolus x 2 -Gentle IVF @ 75ml/hr d/t hx of CHF (4) Urinary retention Current Visit: Yes Status: Acute Base Code: R33.9 - RETENTION OF URINE, UNSPECIFIED Comment: 05/11/19 -Tobar catheter replaced in ED -Outpatient appointment with Dr. 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
[2019-05-11] MEDS ORDERED: KETOROLAC 30 MG/ML VIAL IVP PRN (13:31)
[2019-05-11] MEDS: ACETAMINOPHEN 1,000 MG/100 ML BTL IVPB SCH (17:59)
[2019-05-11] MEDS ORDERED: FLU VAC QS 2019-20 (INPT, 6MO+) 60MCG/0.5ML IM ONE (18:07)
[2019-05-11] MEDS: CARVEDILOL 3.125 MG TABLET PO SCH (21:57)
[2019-05-11] MEDS ORDERED: CARVEDILOL 3.125 MG TABLET PO SCH (22:00)
[2019-05-12] MEDS: ACETAMINOPHEN 1,000 MG/100 ML BTL IVPB SCH (01:03)
[2019-05-12] MEDS: 0.9 % SODIUM CHLORIDE 1000ML 1,000 ML IV PRN ×2 (02:37→16:56)
[2019-05-12] MEDS: PANTOPRAZOLE SODIUM 40 MG TABLET PO SCH ×2 (06:27→07:58)
[2019-05-12 06:34] LABS: ABSOLUTE NEUTROPHIL COUNT 36.76; BASO % 0.1 % (0-6); HEMATOCRIT 35.7 % (42.0-52.0); HEMOGLOBIN 11.4 gm/dl (14.0-18.0); LYMPH % 2.2 % (16-45); MEAN CELL VOLUME 87.7 fl (81-97); MEAN CORPUSCULAR HGB CONC 31.9 g/dl (32-36); MEAN PLATELET VOLUME 10.5 fl (7.4-10.4); MONO % 3.1 % (0-9); PLATELET COUNT 198 K/uL (130-400); RED BLOOD COUNT 4.07 M/uL (4.40-5.70); RED CELL DISTRIBUTION WIDTH 14.2 % (11.5-14.5)
[2019-05-12 06:37] LABS: WHITE BLOOD COUNT W/O DIFF 38.9 K/uL (4.2-12.2)
[2019-05-12 06:43] LABS: ALBUMIN 2.6 g/dL (4.0-5.0); BILIRUBIN,TOTAL 0.4 mg/dL (0.2-1.0); CREATININE 1.3 mg/dL (0.7-1.2); TOTAL PROTEIN 5.1 g/dL (6.6-8.7)
[2019-05-12 07:19] LABS: ANISOCYTOSIS 1+; PLATELET ESTIMATE NORMAL (NORMAL); TOXIC GRANULATION 1+
--- NOTE | 2019-05-12 07:21 | RADIOLOGY REPORT ---
EXAM: CHEST, ONE VIEW HISTORY: FEVER. PATIENT SLID TO FLOOR AT [facility] TODAY. TECHNIQUE: A single mobile semi-erect view of the chest was obtained. Comparison: Two view chest radiographic examination dated 06/04/17. FINDINGS: Post median sternotomy changes are redemonstrated. Several of the median sternotomy wires are fractured, unchanged. The heart is not enlarged. No pulmonary venous hypertension is seen. No new lung consolidation, costophrenic angle blunting or pneumothorax. The left hemidiaphragm remains mildly elevated. No displaced osseous fracture is visualized. There are degenerative changes scattered within the visualized spine and shoulder girdles. The thoracic aorta remains tortuous and atherosclerotic. IMPRESSION: POST MEDIAN STERNOTOMY CHANGES REDEMONSTRATED. NO EVIDENCE OF ACUTE CARDIOPULMONARY DISEASE. JOB NUMBER: [id number] [facility]
--- NOTE | 2019-05-12 07:30 | CT SCAN REPORT ---
EXAM: CT OF THE BRAIN WITHOUT CONTRAST HISTORY: PAIN. FEVER. PATIENT SLID TO FLOOR TODAY AT [facility] TECHNIQUE: Routine noncontrast CT of the brain was obtained. Comparison: CT of the brain without contrast dated 04/03/19. FINDINGS: Moderate dilatation of the subarachnoid spaces is redemonstrated consistent with generalized atrophy associated with borderline to mild ventriculomegaly, stable. Periventricular and subcortical white matter lucencies are again noted scattered in each cerebral hemisphere, the pattern of which is unchanged. These are most pronounced in the subcortical high left frontal lobe. These are nonspecific though likely areas of chronic small vessel ischemia. No definite new area of abnormally increased or decreased attenuation is noted throughout the brain substance. No definite abnormal extraaxial fluid collection is seen. There is redemonstration of a small focus of hyperdensity along the periphery of the paramedian left frontal lobe. This is stable and likely relates to a small focus of dystrophic calcification. No abnormal extraaxial fluid collection nor skull fracture. A large presumed retention cyst is again noted within the left frontal sinus without abnormality of the adjacent bone. Minor soft tissue swelling in the anterior left frontal scalp, stable. The orbits to the extent visualized are unremarkable. IMPRESSION: 1. NO CT EVIDENCE OF AN ACUTE INTRACRANIAL ABNORMALITY NOR SKULL FRACTURE. 2. GENERALIZED ATROPHY. 3. WHITE MATTER LUCENCIES AGAIN NOTED IN EACH CEREBRAL HEMISPHERE CONSISTENT WITH CHRONIC MICROVASCULAR ISCHEMIA. STABLE SMALL HYPERDENSITY IN THE PARAMEDIAN LEFT FRONTAL LOBE CONSISTENT WITH BENIGN CALCIFICATION. LARGE RETENTION CYST OR LESS LIKELY POLYP AGAIN SUGGESTED WITHIN THE LEFT FRONTAL SINUS. MINOR ANTERIOR LEFT FRONTAL SCALP SWELLING IS STABLE. JOB NUMBER: [id number] [facility]
--- NOTE | 2019-05-12 07:46 | CT SCAN REPORT ---
EXAM: CT OF THE CERVICAL SPINE WITHOUT CONTRAST HISTORY: SLID TO FLOOR TODAY AT RETIREMENT. PAIN AND FEVER. TECHNIQUE: Thin collimation helical CT examination of the cervical spine was performed in the axial plane without intravenous contrast. Coronal and sagittal reformatted images are generated and reviewed. Comparison: CT of the cervical spine without contrast dated 04/03/19 at 08:13. FINDINGS: Mild osteopenia is redemonstrated. Minimal anterolisthesis of C4 on C5 as well as C5 on C6 redemonstrated as well as minimal anterolisthesis of T1 on T2 as well as T2 on T3. This is not significantly changed in the interval. No acute fracture, new destructive bone lesion or prevertebral soft tissue swelling. There are well defined lucent areas within the odontoid process and within the spinal laminar junction of C2, stable, likely benign cysts. Moderate to advanced hypertrophic degenerative changes of the atlantodental joint are redemonstrated. Multilevel degenerative disk/degenerative end plate changes are again noted most pronounced at the C6-C7 and C7-T1 levels where the changes are advanced. Multilevel uncovertebral joint spurring and bilateral facet arthropathy causes multilevel neural foraminal narrowing of varying degrees. This pattern does not appear significantly changed in the interval. No new gross osseous cervical spinal stenosis. No new cervical mass nor adenopathy. Mild to moderate atherosclerotic calcification of the carotid bifurcations, right greater than left. Mild nodularity of the thyroid gland is redemonstrated, stable. Biapical lung scarring. Post median sternotomy changes. Advanced degenerative changes of the sternoclavicular joints redemonstrated. There is a small amount of retained secretions within the upper trachea. IMPRESSION: 1. NO ACUTE FRACTURE, SUSPICIOUS SUBLUXATION OR PREVERTEBRAL SOFT TISSUE SWELLING. 2. MULTILEVEL DEGENERATIVE CHANGES REDEMONSTRATED, DETAILED ABOVE. JOB NUMBER: [id number] [facility]
--- NOTE | 2019-05-12 08:01 | CT SCAN REPORT ---
EXAM: CT OF THE ABDOMEN AND PELVIS WITHOUT CONTRAST HISTORY: PAIN AND FEVER. POSSIBLE TRAUMA. TECHNIQUE: Helical CT examination of the abdomen and pelvis was performed without oral or intravenous contrast administration. Lack of oral and IV contrast utilization limits evaluation of the bowel and solid viscera respectively. Comparison: CT of the abdomen and pelvis with contrast dated 11/22/15. FINDINGS: Evaluation of the upper abdomen is limited by motion artifact as well as beam hardening artifact from the patient's arms which were not elevated above his head. Post median sternotomy changes are present. The heart is not enlarged. There is atherosclerotic calcification of the [place] right coronary artery as visualized. Mild linear scarring versus atelectasis within the right lung base. The left hemidiaphragm is mildly elevated. No pleural or pericardial effusion. No suspicious focal abnormality is demonstrated within the liver, spleen, pancreas, adrenal glands nor kidneys. There is redemonstration of a fluid density contour deforming mass arising from the lateral upper left kidney measuring 2.8 cm in maximum diameter. This is unchanged and is consistent with a benign cyst, better seen on the prior contrast enhanced exam. Layering gallstones are present. No definite gallbladder wall thickening or pericholecystic fluid though evaluation is limited by artifact. No definite biliary ductal dilatation. The pancreas is again noted to be atrophic. No intraabdominal nor retroperitoneal lymphadenopathy. The abdominal aorta is without aneurysmal dilatation, mildly atherosclerotic. Post surgical changes are again noted within the proximal transverse portion of the colon. There is a moderate amount of stool within the majority of colon. There is diverticulosis of the sigmoid colon without definite evidence of diverticulitis though evaluation is limited by beam hardening artifact from bilateral hip prostheses. There is apparent wall thickening of the distal rectum. This may relate to incomplete distention or proctitis though other etiologies cannot be excluded. Otherwise, there is no bowel wall thickening or dilatation. The appendix is not visualized with confidence. There is trace ascites within the independent pelvis. A penile prosthesis is in place. Evaluation of the urinary bladder is limited by lack of distention. It is contracted around a Giraldo catheter. No lytic or blastic bone lesion. There are degenerative changes scattered throughout the visualized spine. Total hip arthroplasty changes are noted bilaterally. IMPRESSION: 1. NO DEFINITE CT EVIDENCE OF AN ACUTE INTRAABDOMINAL NOR INTRAPELVIC PROCESS THOUGH EVALUATION OF THE LOWER PELVIS IS LIMITED BY BEAM HARDENING ARTIFACT FROM BILATERAL HIP ARTHROPLASTIES. 2. THERE IS MILD SIGMOID DIVERTICULOSIS. 3. APPARENT MILD WALL THICKENING OF THE RECTUM MAY RELATE TO INCOMPLETE DISTENTION THOUGH PROCTITIS OR LESS LIKELY NEOPLASM CANNOT BE ENTIRELY EXCLUDED. 4. TRACE ASCITES WITHIN THE DEPENDENT PELVIS, NONSPECIFIC. 5. THE RIGHT MID TO LOWER ABDOMINAL WALL IS LAX. 6. 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 THE URINARY BLADDER IS CONTRACTED AROUND A GIRALDO CATHETER BULB. JOB NUMBER: [id number] [facility]
[2019-05-12] MEDS: CARVEDILOL 3.125 MG TABLET PO SCH ×2 (09:35→21:28)
[2019-05-12] MEDS: LIDOCAINE 5% PATCH TOP SCH (09:36)
[2019-05-12] MEDS: CEFTRIAXONE 1GM/50ML BAG 1 GM/50 ML BAG IVPB SCH (09:39)
[2019-05-12] MEDS ORDERED: LEVOFLOXACIN 500MG IVPB 500 MG/100 ML BAG IVPB ONE (09:41)
--- NOTE | 2019-05-12 09:47 | Physician Progress Note ---
Subjective - Date Date of Physician Progress Note: 05/12/19 - Subjective Subjective Comment: Pt was evaluated sitting up in his chair, Alert and pleasant. Had just finished eating breakfast, which staff stated he had no difficulty feeding himself or swallowing. Overnight, staff reported that he pulled his IV out twice but was pleasant overall. He was able to answer questions and have simple conversations this morning. He was able to state who the president was and thought he was at [facility] due to a fall at home. He does not remember any of the events from yesterday. WBC count increased from 5.7 to 38.9. Blood Cultures +. VSS. D/c'd continuous telemetry monitoring d/t pulling off repeatedly. Objective - Multidiciplinary Team Multidiciplinary Team: Nursing - Vital Signs Vital Signs: Vital Signs - Last 24 Hrs Temp Pulse Pulse Pulse Resp BP BP 05/12/19 08:59 20 05/12/19 08:00 97.7 F 83 16 05/12/19 06:00 97.8 F 82 79 18 05/12/19 02:00 97.4 F L 86 16 05/11/19 22:00 97.4 F L 76 16 100/53 05/11/19 21:00 74 76 16 05/11/19 18:29 98.1 F 89 16 05/11/19 14:30 91 H 17 05/11/19 13:44 97 H 24 05/11/19 12:29 99.5 F 105 H 16 05/11/19 12:04 99.4 F 114 H 22 107/66 05/11/19 11:22 99.8 F H 126 H 20 BP Pulse Ox 05/12/19 08:59 05/12/19 08:00 128/64 97 05/12/19 06:00 119/60 96 05/12/19 02:00 95 05/11/19 22:00 95 05/11/19 21:00 05/11/19 18:29 100/44 91 L 05/11/19 14:30 104/59 92 L 05/11/19 13:44 05/11/19 12:29 79/45 98 05/11/19 12:04 97 05/11/19 11:22 107/85 - General General Appearance: Alert (appears to be at baseline cognition), Cooperative, No acute distress - Head Head exam: Atraumatic, Normocephalic - Eye Eye exam: Normal appearance, PERRL - ENT ENT exam: Mucous membranes dry Throat exam: negative: Tonsillar erythema, Tonsillar exudate - Neck Neck exam: Normal inspection. negative: Tenderness - Respiratory Respiratory exam: Normal lung sounds bilaterally. negative: Accessory muscle use, Respiratory distress - Cardiovascular Cardiovascular Exam: Regular rate, Normal rhythm, Tachycardia - GI/Abdominal GI/Abdominal exam: Soft, Normal bowel sounds. negative: Rebound, Rigid - exam: Other (blood around urethra and head of penis) - Extremities Extremities exam: Normal inspection, Full ROM, Normal capillary refill. negative: Joint swelling, Pedal edema, Tenderness - Back Back exam: Reports: Normal inspection. Denies: CVA tenderness (R), CVA te nderness (L) - Neurological Neurological exam: Altered. negative: Normal gait, Oriented X3 - Skin Skin exam: Intact Assessment and Plan - Assessment and Plan (1) Altered mental status Current Visit: Yes Status: Acute Qualifiers: Altered mental status type: unspecified Qualified Code(s): R41.82 - Altered mental status, unspecified Base Code: R41.82 - ALTERED MENTAL STATUS, UNSPECIFIED Priority: High Comment: 05/12/19 -Improved -WBC 5.7 --> 38.9 -UA: Small Leuks, +Blood, Bacteria 4+ -Blood cultures: + for Gram Negative Rods -IV antibiotics changed from Rocephin to Levaquin -Repeat labs in the a.m. (2) UTI (urinary tract infection) Current Visit: Yes Status: Acute Base Code: N39.0 - URINARY TRACT INFECTION, SITE NOT SPECIFIED Comment: 05/12/19 -U/A: Small Leuks, +blood, 4+ bacteria, WBCs 10-15 -C&S pending -D/C Rocephin, start Levaquin 500mg IV daily (3) Sepsis Current Visit: Yes Status: Acute Base Code: A41.9 - SEPSIS, UNSPECIFIED ORGANISM Comment: 05/12/19 -Lactic Acid 5.2 --> 2.8, Alkaline Phosphatase 599 --> 238 -Blood cultures: + for Gram negative rods -Likely d/t Urosepsis -Gentle IVF @ 75ml/hr d/t hx of CHF (4) Urinary retention Current Visit: Yes Status: Acute Base Code: R33.9 - RETENTION OF URINE, UNSPECIFIED Comment: 05/12/19 -Abebe catheter replaced in ED -Outpatient appointment with Dr. 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 Diabetes mellitus complication status: without complication Qualified Code(s): E11.9 - Type 2 diabetes mellitus without complications; Z79.4 - skilled nursing (current) use of insulin Base Code: E11.9 - TYPE 2 DIABETES MELLITUS WITHOUT COMPLICATIONS Comment: 05/12/19 -Restart Levemir @ 35 units q.am -Accucheck changed from QID to BID (6) Do not resuscitate Current Visit: Yes Status: Acute Base Code: Z66 - DO NOT RESUSCITATE Comm ent: 05/12/19 -DNR paperwork completed with DPOA (7) DVT prophylaxis Current Visit: Yes Status: Acute Base Code: [id number] - Comment: 05/12/19 -High risk however pt is high fall risk -Nursing to encourage ambulation Results - Labs Result Diagrams: 05/12/19 06:18 05/12/19 06:18 Labs Last 24 Hours: Laboratory Results - last 24 hr 05/11/19 05/11/19 05/11/19 08:50 08:50 08:50 WBC 5.7 RBC 4.74 Hgb 13.3 L Hct 42.0 MCV 88.6 MCH 28.0 MCHC 31.7 L RDW 14.1 Plt Count 257 MPV 10.8 H Neutrophils % 83.0 H Band Neutrophils % 4.0 Lymphocytes % Monocytes % Eosinophils % Not Reportable Basophils % Not Reportable Absolute Neutrophils 5.22 Lymphocytes 8.0 L Monocytes 5.0 Toxic Granulation Platelet Estimate Normal RBC Morphology Normal Anisocytosis PT 12.5 H INR 1.2 APTT 28.5 Sodium 140 Potassium 3.5 Chloride 97 L Carbon Dioxide 25.0 Anion Gap 18.0 H BUN 14 Creatinine 1.0 Estimated GFR > 60 POC Glucose Random Glucose 270 H Lactic Acid Calcium 9.0 Total Bilirubin 1.00 AST 25 ALT 17 Alkaline Phosphatase 599 H Creatine Kinase CK-MB (CK-2) Troponin T 0.031 H Total Protein 6.0 L Albumin 3.3 L Globulin 2.7 Albumin/Globulin Ratio 1.2 Urine Color Urine Appearance Urine pH Ur Specific [place] Urine Protein Urine Glucose (UA) Urine Ketones Urine Blood Urine Nitrite Urine Bilirubin Urine Urobilinogen Ur Leukocyte Esterase Urine RBC Urine WBC Ur Epithelial Cells Urine Bacteria Acetone, Qual 05/11/19 05/11/19 05/11/19 08:50 08:50 09:50 WBC RBC Hgb Hct MCV MCH MCHC RDW Plt Count MPV Neutrophils % Band Neutrophils % Lymphocytes % Monocytes % Eosinophils % Basophils % Absolute Neutrophils Lymphocytes Monocytes Toxic Granulation Platelet Estimate RBC Morphology Anisocytosis PT INR APTT Sodium Potassium Chloride Carbon Dioxide Anion Gap BUN Creatinine Estimated GFR POC Glucose Random Glucose Lactic Acid Calcium Total Bilirubin AST ALT Alkaline Phosphatase Creatine Kinase 33 L CK-MB (CK-2) 1.6 Troponin T Total Protein Albumin Globulin Albumin/Globulin Ratio Urine Color Yellow Urine Appearance Cloudy Urine pH 6.0 Ur Specific [place] 1.020 Urine Protein 100 mg/dl H Urine Glucose (UA) >=1000 mg/dl H Urine Ketones Negative Urine Blood Large H Urine Nitrite Negative Urine Bilirubin Negative Urine Urobilinogen 2.0 H Ur Leukocyte Esterase Small H Urine RBC Too numerous to cnt Urine WBC 10 - 15 Ur Epithelial Cells None seen Urine Bacteria 4+ Acetone, Qual Negative 05/11/19 05/11/19 05/11/19 10:45 15:25 17:00 WBC RBC Hgb Hct MCV MCH MCHC RDW Plt Count MPV Neutrophils % Band Neutrophils % Lymphocytes % Monocytes % Eosinophils % Basophils % Absolute Neutrophils Lymphocytes Monocytes Toxic Granulation Platelet Estimate RBC Morphology Anisocytosis PT INR APTT Sodium Potassium Chloride Carbon Dioxide Anion Gap BUN Creatinine Estimated GFR POC Glucose Cancelled Random Glucose Lactic Acid 5.2 H Calcium Total Bilirubin AST ALT Alkaline Phosphatase Creatine Kinase CK-MB (CK-2) Troponin T 0.055 H Total Protein Albumin Globulin Albumin/Globulin Ratio Urine Color Urine Appearance Urine pH Ur Specific [place] Urine Protein Urine Glucose (UA) Urine Ketones Urine Blood Urine Nitrite Urine Bilirubin Urine Urobilinogen Ur Leukocyte Esterase Urine RBC Urine WBC Ur Epithelial Cells Urine Bacteria Acetone, Qual 05/11/19 05/11/19 05/11/19 18:37 22:00 23:10 WBC RBC Hgb Hct MCV MCH MCHC RDW Plt Count MPV Neutrophils % Band Neutrophils % Lymphocytes % Monocytes % Eosinophils % Basophils % Absolute Neutrophils Lymphocytes Monocytes Toxic Granulation Platelet Estimate RBC Morphology Anisocytosis PT INR APTT Sodium Potassium Chloride Carbon Dioxide Anion Gap BUN Creatinine Estimated GFR POC Glucose 117 H Cancelled 128 H Random Glucose Lactic Acid Calcium Total Bilirubin AST ALT Alkaline Phosphatase Creatine Kinase CK-MB (CK-2) Troponin T Total Protein Albumin Globulin Albumin/Globulin Ratio Urine Color Urine Appearance Urine pH Ur Specific [place] Urine Protein Urine Glucose (UA) Urine Ketones Urine Blood Urine Nitrite Urine Bilirubin Urine Urobilinogen Ur Leukocyte Esterase Urine RBC Urine WBC Ur Epithelial Cells Urine Bacteria Acetone, Qual 05/12/19 05/12/19 05/12/19 00:00 06:18 06:18 WBC 38.9 H* RBC 4.07 L Hgb 11.4 L Hct 35.7 L MCV 87.7 MCH 28.0 MCHC 31.9 L RDW 14.2 Plt Count 198 MPV 10.5 H Neutrophils % 74.0 Band Neutrophils % 18.0 H Lymphocytes % 2.2 L Monocytes % 3.1 Eosinophils % 0.0 Basophils % 0.1 Absolute Neutrophils 36.76 Lymphocytes 6.0 L Monocytes 2.0 Toxic Granulation 1+ Platelet Estimate Normal RBC Morphology Anisocytosis 1+ PT INR APTT Sodium Cancelled Potassium Cancelled Chloride Cancelled Carbon Dioxide Cancelled Anion Gap Cancelled BUN Cancelled Creatinine Cancelled Estimated GFR Cancelled POC Glucose Random Glucose Cancelled Lactic Acid Cancelled Calcium Cancelled Total Bilirubin AST ALT Alkaline Phosphatase Creatine Kinase CK-MB (CK-2) Troponin T 0.092 H Total Protein Albumin Globulin Albumin/Globulin Ratio Urine Color Urine Appearance Urine pH Ur Specific [place] Urine Protein Urine Glucose (UA) Urine Ketones Urine Blood Urine Nitrite Urine Bilirubin Urine Urobilinogen Ur Leukocyte Esterase Urine RBC Urine WBC Ur Epithelial Cells Urine Bacteria Acetone, Qual 05/12/19 05/12/19 06:18 06:18 WBC RBC Hgb Hct MCV MCH MCHC RDW Plt Count MPV Neutrophils % Band Neutrophils % Lymphocytes % Monocytes % Eosinophils % Basophils % Absolute Neutrophils Lymphocytes Monocytes Toxic Granulation Platelet Estimate RBC Morphology Anisocytosis PT INR APTT Sodium 144 Potassium 3.6 Chloride 104 Carbon Dioxide 25.0 Anion Gap 15.0 BUN 23 Creatinine 1.3 H Estimated GFR 55 POC Glucose Random Glucose 156 H Lactic Acid 2.8 H Calcium 8.3 L Total Bilirubin 0.40 AST 24 ALT 22 Alkaline Phosphatase 238 H Creatine Kinase CK-MB (CK-2) Troponin T Total Protein 5.1 L Albumin 2.6 L Globulin 2.5 Albumin/Globulin Ratio 1.0 L Urine Color Urine Appearance Urine pH Ur Specific [place] Urine Protein Urine Glucose (UA) Urine Ketones Urine Blood Urine Nitrite Urine Bilirubin Urine Urobilinogen Ur Leukocyte Esterase Urine RBC Urine WBC Ur Epithelial Cells Urine Bacteria Acetone, Qual DVT/PE Assessment - Risk for VTE Risk for VTE: No Risk Level: High Risk Assessment Date: 05/11/19 Risk Assessment Time: 13:00 VTE Orders Placed or Will Be Placed: No VTE Reason for No Prophylaxis: Contraindicated (risk outweighs benefit d/t high fall risk) - Active Medicaitons Current Medications: Current Medications Carvedilol (Coreg) 6.25 mg PO BID [facility] Last Admin: 05/12/19 09:35 Dose: 6.25 mg Documented by: Sodium Chloride () 1,000 mls @ 75 mls/hr IV .[id number] PRN PRN Reason: LARGE VOLUME IV Last Admin: 05/12/19 02:37 Dose: 75 mls/hr Documented by: Levofloxacin/Dextrose (Levaquin 500mg Ivpb) 500 mg in 100 mls @ 125 mls/hr IVPB DAILY ONE Stop: 05/12/19 10:28 Insulin Aspart (Novolog Flexpen) 4 unit SQ DAILY [facility] Insulin Detemir (Levemir Flextouch) 35 unit SQ QAM [facility] Lidocaine (Lidoderm) 1 each TOP DAILY [facility] Last Admin: 05/12/19 09:36 Dose: 1 each Documented by: Pantoprazole Sodium (Protonix) 40 mg PO DAILYAC [facility] Last Admin: 05/12/19 07:58 Dose: 40 mg Documented by: AMI Plan - Labs Result Diagrams: 05/12/19 06:18 05/12/19 06:18
[2019-05-12] MEDS ORDERED: LEVEMIR FLEXTOUCH 100 UNIT/ML INSULIN PEN SQ SCH (10:00)
[2019-05-12] MEDS ORDERED: NOVOLOG FLEXPEN (INSULIN ASPART) 100 UNITS/ML SQ SCH (10:00)
[2019-05-12] MEDS ORDERED: NAPROXEN 250 MG TABLET PO PRN (10:25)
[2019-05-12] MEDS: ACETAMINOPHEN 325 MG TAB PO SCH ×3 (10:40→23:30)
[2019-05-12] MEDS: ASPIRIN 81 MG TABEC PO SCH (10:40)
[2019-05-12] MEDS: DULOXETINE HCL 30 MG CAPSULE.DR PO SCH ×2 (10:40→21:28)
[2019-05-12] MEDS ORDERED: NOVOLOG FLEXPEN (INSULIN ASPART) 100 UNITS/ML SQ ONE (11:43)
[2019-05-13] MEDS: 0.9 % SODIUM CHLORIDE 1000ML 1,000 ML IV PRN ×2 (00:33→09:42)
[2019-05-13] MEDS: ACETAMINOPHEN 325 MG TAB PO SCH ×4 (05:29→21:25)
[2019-05-13 07:22] LABS: HEMATOCRIT 33.2 % (42.0-52.0); HEMOGLOBIN 10.6 gm/dl (14.0-18.0); MEAN CELL VOLUME 88.5 fl (81-97); MEAN CORPUSCULAR HGB CONC 31.9 g/dl (32-36); MEAN PLATELET VOLUME 11.1 fl (7.4-10.4); PLATELET COUNT 179 K/uL (130-400); RED BLOOD COUNT 3.75 M/uL (4.40-5.70); RED CELL DISTRIBUTION WIDTH 14.3 % (11.5-14.5)
[2019-05-13 07:28] LABS: MEAN CORPUSCULAR HEMOGLOBIN 28.2 pg (27-33)
--- NOTE | 2019-05-13 08:57 | Physician Progress Note ---
Subjective - Date Date of Physician Progress Note: 05/13/19 Objective - Multidiciplinary Team Multidiciplinary Team: Nursing - Vital Signs Vital Signs: Vital Signs - Last 24 Hrs Temp Pulse Pulse Resp BP BP Pulse Ox 05/13/19 06:54 72 16 194/96 05/13/19 06:20 98.2 F 80 18 166/82 94 L 05/13/19 02:40 97.9 F 81 16 154/82 93 L 05/12/19 21:00 73 16 05/12/19 19:50 98.1 F 73 16 121/56 96 05/12/19 18:00 98.6 F 80 16 113/68 95 05/12/19 14:00 98.6 F 77 16 144/79 96 05/12/19 08:59 20 - General General Appearance: Alert (appears to be at baseline cognition), Cooperative, No acute distress Limitations: Altered mental status - Head Head exam: Atraumatic, Normocephalic - Eye Eye exam: Normal appearance, PERRL - ENT ENT exam: Mucous membranes dry Throat exam: negative: Tonsillar erythema, Tonsillar exudate - Neck Neck exam: Normal inspection. negative: Tenderness - Respiratory Respiratory exam: Normal lung sounds bilaterally. negative: Accessory muscle use, Respiratory distress - Cardiovascular Cardiovascular Exam: Regular rate, Normal rhythm, Tachycardia - GI/Abdominal GI/Abdominal exam: Soft, Normal bowel sounds. negative: Rebound, Rigid - exam: Other (blood around urethra and head of penis) - Extremities Extremities exam: Normal inspection, Full ROM, Normal capillary refill. negative: Joint swelling, Pedal edema, Tenderness - Back Back exam: Reports: Normal inspection. Denies: CVA tenderness (R), CVA t enderness (L) - Neurological Neurological exam: Altered. negative: Normal gait, Oriented X3 - Skin Skin exam: Intact Assessment and Plan - Assessment and Plan (1) Sepsis Current Visit: Yes Status: Acute Base Code: A41.9 - SEPSIS, UNSPECIFIED ORGANISM Comment: 05/13/19 - WBC trending down. -Blood cultures: + for Gram negative rods -Likely d/t Urosepsis -Gentle IVF @ 75ml/hr d/t hx of CHF - Continue on IV Levaquin 500mg QD. (2) UTI (urinary tract infection) Current Visit: Yes Status: Acute Base Code: N39.0 - URINARY TRACT INFECTION, SITE NOT SPECIFIED Comment: 05/13/19 - U/A: Small Leuks, +blood, 4+ bacteria, WBCs 05-13 - Continue Levaquin 500mg IV daily. 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 - Levemir @ 30 units q.am, Accucheck BID - ADA diet ordered. (4) DVT prophylaxis Current Visit: Yes Status: Acute Base Code: [id number] - Comment: 05/13/19 -High risk however pt is high fall risk so pharmocological prophylaxis to be held. - Ambulation to be encouraged. (5) Do not resuscitate Current Visit: Yes Status: Acute Base Code: Z66 - DO NOT RESUSCITATE Comment: 05/13/19 -DNR paperwork completed with DPOA. Reviewed code status on rounds this morning. - Disposition Disposition: Pending sensitivities for BCX. Contine with Levaquin IV. Urology consult pending. Results - Labs Result Diagrams: 05/13/19 06:10 05/13/19 06:10 Labs Last 24 Hours: Laboratory Results - last 24 hr 05/12/19 05/12/19 05/12/19 11:36 12:15 16:46 WBC RBC Hgb Hct MCV MCH MCHC RDW Plt Count MPV Lymphocytes % Monocytes % Eosinophils % Basophils % Absolute Neutrophils POC Glucose Cancelled 273 H 123 H 05/12/19 05/12/19 05/12/19 21:30 21:55 22:25 WBC RBC Hgb Hct MCV MCH MCHC RDW Plt Count MPV Lymphocytes % Monocytes % Eosinophils % Basophils % Absolute Neutrophils POC Glucose 35 L* 44 L* 67 L 05/13/19 05/13/19 05:55 06:10 WBC 28.5 H* RBC 3.75 L Hgb 10.6 L Hct 33.2 L MCV 88.5 MCH 28.2 MCHC 31.9 L RDW 14.3 Plt Count 179 MPV 11.1 H Lymphocytes % 3.8 L Monocytes % 4.4 Eosinophils % 0.5 Basophils % 0.1 Absolute Neutrophils 26.02 POC Glucose 84 DVT/PE Assessment - Risk for VTE Risk for VTE: No Risk Level: High Risk Assessment Date: 05/11/19 Risk Assessment Time: 13:00 VTE Orders Placed or Will Be Placed: No VTE Reason for No Prophylaxis: Contraindicated (risk outweighs benefit d/t high fall risk) - Active Medicaitons Current Medications: Current Medications Acetaminophen (Tylenol 325mg) 650 mg PO Q6HR [facility] Last Admin: 05/13/19 05:29 Dose: 650 mg Documented by: Aspirin (Ecotrin (Ec)) 81 mg PO DAILY [facility] Last Admin: 05/12/19 10:40 Dose: 81 mg Documented by: Carvedilol (Coreg) 6.25 mg PO BID [facility] Last Admin: 05/12/19 21:28 Dose: 6.25 mg Documented by: Duloxetine HCl (Cymbalta) 30 mg PO BID [facility] Last Admin: 05/12/19 21:28 Dose: 30 mg Documented by: Sodium Chloride () 1,000 mls @ 125 mls/hr IV .Q8H PRN PRN Reason: LARGE VOLUME IV Last Infusion: 05/13/19 08:46 Dose: Infused Documented by: Levofloxacin/Dextrose (Levaquin 500mg Ivpb) 500 mg in 100 mls @ 125 mls/hr IVPB Q24H [facility] Stop: 05/18/19 09:01 Insulin Detemir (Levemir Flextouch) 33 unit SQ QAM [facility] Lidocaine (Lidoderm) 1 each TOP DAILY [facility] Last Admin: 05/12/19 09:36 Dose: 1 each Documented by: Naproxen (Naprosyn) 250 mg PO Q12H PRN PRN Reason: PAIN - SEVERE (8-10) Pantoprazole Sodium (Protonix) 40 mg PO DAILYAC [facility] Last Admin: 05/12/19 07:58 Dose: 40 mg Documented by: AMI Plan - Labs Result Diagrams: 05/13/19 06:10 05/13/19 06:10
[2019-05-13] MEDS: LIDOCAINE 5% PATCH TOP SCH (09:41)
[2019-05-13 09:44] LABS: ALB/GLOB RATIO 1.3 (1.1-1.8); ALBUMIN 2.9 g/dL (4.0-5.0); ALT/SGPT 27 U/L (<41); AST/SGOT 38 U/L (10.0-50.0); BLOOD UREA NITROGEN 24 mg/dL (8-23); CREATININE 0.9 mg/dL (0.7-1.2); EST GLOMERULAR FILTRATION RATE > 60 mL/min; GLUCOSE,RANDOM 90 mg/dL (74-109); TOTAL PROTEIN 5.2 g/dL (6.6-8.7)
[2019-05-13 09:49] LABS: WHITE BLOOD COUNT W/O DIFF 28.5 K/uL (4.2-12.2)
[2019-05-13] MEDS ORDERED: LEVEMIR FLEXTOUCH 100 UNIT/ML INSULIN PEN SQ SCH (10:00)
[2019-05-13] MEDS ORDERED: LEVOFLOXACIN 500MG IVPB 500 MG/100 ML BAG IVPB SCH (10:00)
[2019-05-13] MEDS: ASPIRIN 81 MG TABEC PO SCH (10:24)
[2019-05-13] MEDS: DULOXETINE HCL 30 MG CAPSULE.DR PO SCH ×2 (10:24→21:23)
[2019-05-13] MEDS: LEVEMIR FLEXTOUCH 100 UNIT/ML INSULIN PEN SQ SCH (10:25)
[2019-05-13] MEDS: CARVEDILOL 3.125 MG TABLET PO SCH ×2 (10:25→21:23)
[2019-05-13 11:05] LABS: ALKALINE PHOSPHATASE 258 U/L (40-129)
[2019-05-13] MEDS ORDERED: PNEUM 23-VAL ADULT IM ONE (18:23)
[2019-05-14] MEDS: ACETAMINOPHEN 325 MG TAB PO SCH ×3 (00:34→14:40)
[2019-05-14 04:38] LABS: ABSOLUTE NEUTROPHIL COUNT 15.03; BASO % 0.1 % (0-6); EOS % 1.6 % (0-6); HEMOGLOBIN 11.6 gm/dl (14.0-18.0); LYMPH % 7.8 % (16-45); MEAN CELL VOLUME 88.5 fl (81-97); MEAN CORPUSCULAR HEMOGLOBIN 28.5 pg (27-33); MEAN CORPUSCULAR HGB CONC 32.2 g/dl (32-36); MEAN PLATELET VOLUME 11.1 fl (7.4-10.4); MONO % 3.8 % (0-9); PLATELET COUNT 195 K/uL (130-400); RED BLOOD COUNT 4.07 M/uL (4.40-5.70); RED CELL DISTRIBUTION WIDTH 14.1 % (11.5-14.5); WHITE BLOOD COUNT W/O DIFF 17.3 K/uL (4.2-12.2)
[2019-05-14 05:02] LABS: ANISOCYTOSIS 1+; PLATELET ESTIMATE NORMAL (NORMAL)
[2019-05-14 05:27] LABS: BLOOD UREA NITROGEN 14 mg/dL (8-23); CREATININE 0.8 mg/dL (0.7-1.2); EST GLOMERULAR FILTRATION RATE > 60 mL/min; GLUCOSE,RANDOM 177 mg/dL (74-109)
--- NOTE | 2019-05-14 08:20 | Medical Records Consult ---
DATE OF CONSULTATION: 05/13/2019 REASON FOR CONSULTATION: Urinary retention. HISTORY OF PRESENT ILLNESS: Thank you for asking me to see this patient in followup today. I originally saw the patient approximately 1 month ago after he sustained his hip fracture which has been managed nonoperatively. He underwent a voiding trial during that admission which was unsuccessful and was discharged with a Abebe catheter. Unfortunately, he was readmitted now with apparent urosepsis and without a catheter. In the emergency room, the Abebe catheter was replaced. He is currently receiving Levaquin for antibiotic coverage. His entire medical record during this admission has been reviewed. ASSESSMENT AND PLAN: The patient appears to have chronic urinary retention requiring some form of catheter drainage. I spent approximately 30 minutes with the patient and his today discussing the situation their options, which include chronic Abebe catheter versus intermittent catheterization. He is not a candidate for a suprapubic tube given his previous lower abdominal surgery and large lower abdominal hernia visualized on exam today. It does not appear there is anyone who could perform intermittent catheterization at home. Most likely he will need to maintain a Abebe catheter to be changed every 3-4 weeks, but hopefully arrangements can be made for visiting nurse to change the catheter at home rather than having him come to the office to have it changed monthly. Thank you for the opportunity to participate in this very pleasant patient's care. Please let me know if I can be of further assistance. HUGO
[2019-05-14] MEDS: PANTOPRAZOLE SODIUM 40 MG TABLET PO SCH (09:05)
--- NOTE | 2019-05-14 09:18 | Discharge Summary ---
Providers Discharge Summary Date: 05/14/19 Date of admission: 05/11/19 12:05 Attending physician: RADHA MENDOZA Primary care physician: SAURABH XIONG D.O. Physical Exam - Vital Signs Vital Signs: Vital Signs - Last 24 Hrs Temp Pulse Resp BP BP Pulse Ox 05/14/19 09:08 97.8 F 91 H 18 186/105 95 05/14/19 06:05 97.9 F 81 18 185/102 96 05/14/19 03:46 97.9 F 85 18 185/107 97 05/13/19 20:50 81 16 05/13/19 20:31 98.5 F 81 16 162/90 96 05/13/19 17:00 98.1 F 72 16 177/95 97 05/13/19 13:00 97.2 F L 76 14 159/81 93 L - General General Appearance: Alert (appears to be at baseline cognition), Cooperative, No acute distress Limitations: Altered mental status - Head Head exam: Atraumatic, Normocephalic - Eye Eye exam: Normal appearance, PERRL - ENT ENT exam: Mucous membranes dry Throat exam: negative: Tonsillar erythema, Tonsillar exudate - Neck Neck exam: Normal inspection. negative: Tenderness - Respiratory Respiratory exam: Normal lung sounds bilaterally. negative: Accessory muscle use, Respiratory distress - Cardiovascular Cardiovascular Exam: Regular rate, Normal rhythm, Tachycardia Peripheral Pulses: 2+: Radial (R), Radial (L) - GI/Abdominal GI/Abdominal exam: Soft, Normal bowel sounds. negative: Rebound, Rigid - exam: Other (blood around urethra and head of penis) - Extremities Extremities exam: Normal inspection, Full ROM, Normal capillary refill. negative: Joint swelling, Pedal edema, Tenderness - Back Back exam: Reports: Normal inspection. Denies: CVA tenderness (R), CVA tenderness (L) - Neurological Neurological exam: Altered. negative: Normal gait, Oriented X3 - Skin Skin exam: Intact Hospitalization - Hospitalization Admission Diagnosis: 1. Acute Urosepsis with confusion. - Problem List (1) Sepsis Current Visit: Yes Status: Acute Base Code: A41.9 - SEPSIS, UNSPECIFIED ORGANISM Comment: 05/14/19 - WBC trending to 17K - BCX: E. coli, E. fecalis. - D/C IVF @ 75ml/hr d/t hx of CHF - D/C IV Levaquin 500mg QD as it only covers E coli. Will change to IV Ampicillin 500mg Q6H and change to PO for 10 days at discharge. (2) UTI (urinary tract infection) Current Visit: Yes Status: Acute Base Code: N39.0 - URINARY TRACT INFECTION, SITE NOT SPECIFIED Comment: 05/14/19 - U/A: [place], +blood, 4+ bacteria, WBCs 10-15 - Changed to Ampicillin 500mg IV Q6H and Po at discharge. (3) Urinary retention Current Visit: Yes Status: Acute Base Code: R33.9 - RETENTION OF URINE, UNSPECIFIED Comment: 05/14/19 -Tobar catheter replaced in ED - Urology recommends keeping tobar catheter and re-evaluation outpatient. - group home to manage at discharge. (4) Diabetes mellitus Current Visit: Yes Status: Chronic Discharge Diagnosis: Diabetes mellitus type: type 2 Diabetes mellitus terminal block assembler insulin use: with terminal block assembler use Diabetes mellitus complication status: without complication Qualified Code(s): E11.9 - Type 2 diabetes mellitus without complications; Z79.4 - retirement (current) use of insulin Base Code: E11.9 - TYPE 2 DIABETES MELLITUS WITHOUT COMPLICATIONS Comment: 05/14/19 - Insulin dose adjustment due to hypoglycemia overnight. - Holding Levemir @ 30 units q.am, due to continue hypoglycemia. Accucheck BID - ADA diet ordered. (5) DVT prophylaxis Current Visit: Yes Status: Acute Base Code: [id number] - Comment: 05/14/19 -High risk however pt is high fall risk so pharmocological prophylaxis to be held. - Ambulation to be encouraged. (6) Do not resuscitate Current Visit: Yes Status: Acute Base Code: Z66 - DO NOT RESUSCITATE Comment: 05/13/19 -DNR paperwork completed with DPOA. Reviewed code status on rounds this morning. - Disposition Pending sensitivities for BCX. Contine with Levaquin IV. Urology consult pending. - Hospitalization Course Hospital Course: Nick Salcedo is an 89 y.o. M who was brought in to the [facility] ED this a.m. d/t AMS. He has Dementia and is a poor historian at baseline and was unable to answer any questions appropriately when in the ED. He resides in [facility] with his , who also has dementia. He was found this a.m. on the floor with increased confusion from baseline and a fever. Spouse reported that he slid himself out of bed this a.m. because he was "hot". Staff at [facility] found him at approximately 0800 and had last seen him prior to that at 0730 and he was in his bed. Recently, he had a tobar catheter placed d/t bladder outlet obstruction and has pulled the catheter out on a few occasions. NITZA Cannon (daughter) stated that she noticed he had a lot of blood and clotting in the tobar catheter bag yesterday but that he was at his baseline mentation. Normally, he is able to ambulate with a walker and have simple conversations. In the ED, he would answered "yes" when questioned about pain but otherwise did not respond. NITZA reported that pain is normally in his right hip. She reported that he has been receiving Cymbalta 90mg daily and Ultram 50mg which are relatively new medications for him. PMHx: CABG x 3 in 2007, DM2, HTN, High cholesterol, Dementia, hx of bowel obstruction, hx of colon ca PCP: Dr. Saurabh Xiong ED Course -Vitals: T 100.7, P 124, BP 100/65, RR 28, SpO2 97% on RA -Labs: WBC 5.7, Neutrophils 83, AG 18, Lactic Acid 5.2, Alk phos 599, Trop 0.031 -Xrays: Negative for acute process -New tobar catheter placed, U/A taken with new tobar placement 05/11/19 1300 Pt was observed lying on right side in bed. He would occasionally grab out into the air with his left hand. INTZA Cannon at bedside. Discussed DNR status and comfort care vs. aggressive care. NITZA stated that he is a DNR but that she woul d want some amount of aggressive treatment done. She reported that he has had increase in pain lately and was tried on [place], which made him very confused so then was recently put on Ultram and an increased dose of Cymbalta. She reported that as far as she knew, he has been eating and drinking lately. Discussed plan to give IV antibiotics and IVF and if condition worsened, he may need to be transferred to higher level of care in order to receive blood pressure support. DPOA verbalized understanding of this plan. [facility] was contacted regarding pt condition. [facility] staff reported that he doesn't drink much but did have a "good day" yesterday. They denied having any illnesses going around the facility. Staff reported that he usually sleeps well, unless he is painful. 05/13 - 05/14: The patient was evaluated on rounds and found to be alert and responsive. His white count showed a steady tend down from 38.9-->28.5-->17.3 on Levaquin 500mg daily. The patient's urine grew E coli and blood culture showed both E. coli and E feacalis. The patient was seen by Urology while inpatient with recommendation for maintenance of his tobar catheter with ongoing concern for his urinary retention. His antibiotics were changed to IV Ampicillin 1gm today based on blood culture sensitivities and he is to be discharged on or al Ampicillin 500mg Q6H for another 9 days. I spoke to the patient and his daughter (Miracle Lopez) to explain the plan of care upon his discharge. Procedures: Imaging and X-Rays 05/11/19 09:15 ABDOMEN/PELVIS WO CONTRAST [CT] Stat CHEST 1 VIEW [RAD] Stat 05/11/19 09:20 CERVICAL SPINE WO CONTRAST [CT] Stat HEAD WO CONTRAST [CT] Stat Cardiology Procedures 05/11/19 09:15 Ict Sales Assistant NOW EKG NOW 05/11/19 12:29 EKG QDX2@0600 Abnormal Labs: Abnormal Lab Results 05/11/19 05/11/19 05/11/19 Range/Units 08:50 08:50 08:50 WBC (4.2-12.2) K/uL RBC (4.40-5.70) M/uL Hgb 13.3 L (14.0-18.0) gm/dl Hct (42.0-52.0) % MCHC 31.7 L (32-36) g/dl MPV 10.8 H (7.4-10.4) fl Neutrophils % 83.0 H (47-80) % Band Neutrophils % (0-5) % Lymphocytes % (16-45) % Lymphocytes 8.0 L (16-45) % PT 12.5 H (9.5-12.1) SECONDS Chloride 97 L (98-107) mmol/L Anion Gap 18.0 H (7-16) BUN (8-23) mg/dL Creatinine (0.7-1.2) mg/dL POC Glucose (70-110) mg/dL Random Glucose 270 H (74-109) mg/dL Lactic Acid (0.5-2.2) mmol/L Calcium (8.8-10.2) mg/dL Alkaline Phosphatase 599 H (40-129) U/L Creatine Kinase (39-308) U/L Troponin T 0.031 H (0-0.010) ng/mL Total Protein 6.0 L (6.6-8.7) g/dL Albumin 3.3 L (4.0-5.0) g/dL Albumin/Globulin Ratio (1.1-1.8) Urine Protein (NEGATIVE) Urine Glucose (UA) (NEGATIVE) Urine Blood (NEGATIVE) Urine Urobilinogen (0.20 - 1.00) E.U./dL Ur Leukocyte Esterase (NEGATIVE) 05/11/19 05/11/19 05/11/19 Range/Units 08:50 09:50 10:45 WBC (4.2-12.2) K/uL RBC (4.40-5.70) M/uL Hgb (14.0-18.0) gm/dl Hct (42.0-52.0) % MCHC (32-36) g/dl MPV (7.4-10.4) fl Neutrophils % (47-80) % Band Neutrophils % (0-5) % Lymphocytes % (16-45) % Lymphocytes (16-45) % PT (9.5-12.1) SECONDS Chloride (98-107) mmol/L Anion Gap (7-16) BUN (8-23) mg/dL Creatinine (0.7-1.2) mg/dL POC Glucose (70-110) mg/dL Random Glucose (74-109) mg/dL Lactic Acid 5.2 H (0.5-2.2) mmol/L Calcium (8.8-10.2) mg/dL Alkaline Phosphatase (40-129) U/L Creatine Kinase 33 L (39-308) U/L Troponin T (0-0.010) ng/mL Total Protein (6.6-8.7) g/dL Albumin (4.0-5.0) g/dL Albumin/Globulin Ratio (1.1-1.8) Urine Protein 100 mg/dl H (NEGATIVE) Urine Glucose (UA) >=1000 mg/dl H (NEGATIVE) Urine Blood Large H (NEGATIVE) Urine Urobilinogen 2.0 H (0.20 - 1.00) E.U./dL Ur Leukocyte Esterase Small H (NEGATIVE) 05/11/19 05/11/19 05/11/19 Range/Units 15:25 18:37 23:10 WBC (4.2-12.2) K/uL RBC (4.40-5.70) M/uL Hgb (14.0-18.0) gm/dl Hct (42.0-52.0) % MCHC (32-36) g/dl MPV (7.4-10.4) fl Neutrophils % (47-80) % Band Neutrophils % (0-5) % Lymphocytes % (16-45) % Lymphocytes (16-45) % PT (9.5-12.1) SECONDS Chloride (98-107) mmol/L Anion Gap (7-16) BUN (8-23) mg/dL Creatinine (0.7-1.2) mg/dL POC Glucose 117 H 128 H (70-110) mg/dL Random Glucose (74-109) mg/dL Lactic Acid (0.5-2.2) mmol/L Calcium (8.8-10.2) mg/dL Alkaline Phosphatase (40-129) U/L Creatine Kinase (39-308) U/L Troponin T 0.055 H (0-0.010) ng/mL Total Protein (6.6-8.7) g/dL Albumin (4.0-5.0) g/dL Albumin/Globulin Ratio (1.1-1.8) Urine Protein (NEGATIVE) Urine Glucose (UA) (NEGATIVE) Urine Blood (NEGATIVE) Urine Urobilinogen (0.20 - 1.00) E.U./dL Ur Leukocyte Esterase (NEGATIVE) 05/12/19 05/12/19 05/12/19 Range/Units 00:00 06:18 06:18 WBC 38.9 H* (4.2-12.2) K/uL RBC 4.07 L (4.40-5.70) M/uL Hgb 11.4 L (14.0-18.0) gm/dl Hct 35.7 L (42.0-52.0) % MCHC 31.9 L (32-36) g/dl MPV 10.5 H (7.4-10.4) fl Neutrophils % (47-80) % Band Neutrophils % 18.0 H (0-5) % Lymphocytes % 2.2 L (16-45) % Lymphocytes 6.0 L (16-45) % PT (9.5-12.1) SECONDS Chloride (98-107) mmol/L Anion Gap (7-16) BUN (8-23) mg/dL Creatinine 1.3 H (0.7-1.2) mg/dL POC Glucose (70-110) mg/dL Random Glucose 156 H (74-109) mg/dL Lactic Acid (0.5-2.2) mmol/L Calcium 8.3 L (8.8-10.2) mg/dL Alkaline Phosphatase 238 H (40-129) U/L Creatine Kinase (39-308) U/L Troponin T 0.092 H (0-0.010) ng/mL Total Protein 5.1 L (6.6-8.7) g/dL Albumin 2.6 L (4.0-5.0) g/dL Albumin/Globulin Ratio 1.0 L (1.1-1.8) Urine Protein (NEGATIVE) Urine Glucose (UA) (NEGATIVE) Urine Blood (NEGATIVE) Urine Urobilinogen (0.20 - 1.00) E.U./dL Ur Leukocyte Esterase (NEGATIVE) 05/12/19 05/12/19 05/12/19 Range/Units 06:18 12:15 16:46 WBC (4.2-12.2) K/uL RBC (4.40-5.70) M/uL Hgb (14.0-18.0) gm/dl Hct (42.0-52.0) % MCHC (32-36) g/dl MPV (7.4-10.4) fl Neutrophils % (47-80) % Band Neutrophils % (0-5) % Lymphocytes % (16-45) % Lymphocytes (16-45) % PT (9.5-12.1) SECONDS Chloride (98-107) mmol/L Anion Gap (7-16) BUN (8-23) mg/dL Creatinine (0.7-1.2) mg/dL POC Glucose 273 H 123 H (70-110) mg/dL Random Glucose (74-109) mg/dL Lactic Acid 2.8 H (0.5-2.2) mmol/L Calcium (8.8-10.2) mg/dL Alkaline Phosphatase (40-129) U/L Creatine Kinase (39-308) U/L Troponin T (0-0.010) ng/mL Total Protein (6.6-8.7) g/dL Albumin (4.0-5.0) g/dL Albumin/Globulin Ratio (1.1-1.8) Urine Protein (NEGATIVE) Urine Glucose (UA) (NEGATIVE) Urine Blood (NEGATIVE) Urine Urobilinogen (0.20 - 1.00) E.U./dL Ur Leukocyte Esterase (NEGATIVE) 05/12/19 05/12/19 05/12/19 Range/Units 21:30 21:55 22:25 WBC (4.2-12.2) K/uL RBC (4.40-5.70) M/uL Hgb (14.0-18.0) gm/dl Hct (42.0-52.0) % MCHC (32-36) g/dl MPV (7.4-10.4) fl Neutrophils % (47-80) % Band Neutrophils % (0-5) % Lymphocytes % (16-45) % Lymphocytes (16-45) % PT (9.5-12.1) SECONDS Chloride (98-107) mmol/L Anion Gap (7-16) BUN (8-23) mg/dL Creatinine (0.7-1.2) mg/dL POC Glucose 35 L* 44 L* 67 L (70-110) mg/dL Random Glucose (74-109) mg/dL Lactic Acid (0.5-2.2) mmol/L Calcium (8.8-10.2) mg/dL Alkaline Phosphatase (40-129) U/L Creatine Kinase (39-308) U/L Troponin T (0-0.010) ng/mL Total Protein (6.6-8.7) g/dL Albumin (4.0-5.0) g/dL Albumin/Globulin Ratio (1.1-1.8) Urine Protein (NEGATIVE) Urine Glucose (UA) (NEGATIVE) Urine Blood (NEGATIVE) Urine Urobilinogen (0.20 - 1.00) E.U./dL Ur Leukocyte Esterase (NEGATIVE) 05/13/19 05/13/19 05/13/19 Range/Units 06:10 06:10 08:01 WBC 28.5 H* (4.2-12.2) K/uL RBC 3.75 L (4.40-5.70) M/uL Hgb 10.6 L (14.0-18.0) gm/dl Hct 33.2 L (42.0-52.0) % MCHC 31.9 L (32-36) g/dl MPV 11.1 H (7.4-10.4) fl Neutrophils % 91.0 H (47-80) % Band Neutrophils % (0-5) % Lymphocytes % (16-45) % Lymphocytes 4.0 L (16-45) % PT (9.5-12.1) SECONDS Chloride 108 H (98-107) mmol/L Anion Gap (7-16) BUN 24 H (8-23) mg/dL Creatinine (0.7-1.2) mg/dL POC Glucose 54 L (70-110) mg/dL Random Glucose (74-109) mg/dL Lactic Acid (0.5-2.2) mmol/L Calcium 8.3 L (8.8-10.2) mg/dL Alkaline Phosphatase 258 H (40-129) U/L Creatine Kinase (39-308) U/L Troponin T (0-0.010) ng/mL Total Protein 5.2 L (6.6-8.7) g/dL Albumin 2.9 L (4.0-5.0) g/dL Albumin/Globulin Ratio (1.1-1.8) Urine Protein (NEGATIVE) Urine Glucose (UA) (NEGATIVE) Urine Blood (NEGATIVE) Urine Urobilinogen (0.20 - 1.00) E.U./dL Ur Leukocyte Esterase (NEGATIVE) 05/13/19 05/13/19 05/13/19 Range/Units 08:56 11:46 17:23 WBC (4.2-12.2) K/uL RBC (4.40-5.70) M/uL Hgb (14.0-18.0) gm/dl Hct (42.0-52.0) % MCHC (32-36) g/dl MPV (7.4-10.4) fl Neutrophils % (47-80) % Band Neutrophils % (0-5) % Lymphocytes % (16-45) % Lymphocytes (16-45) % PT (9.5-12.1) SECONDS Chloride (98-107) mmol/L Anion Gap (7-16) BUN (8-23) mg/dL Creatinine (0.7-1.2) mg/dL POC Glucose 127 H 230 H 181 H (70-110) mg/dL Random Glucose (74-109) mg/dL Lactic Acid (0.5-2.2) mmol/L Calcium (8.8-10.2) mg/dL Alkaline Phosphatase (40-129) U/L Creatine Kinase (39-308) U/L Troponin T (0-0.010) ng/mL Total Protein (6.6-8.7) g/dL Albumin (4.0-5.0) g/dL Albumin/Globulin Ratio (1.1-1.8) Urine Protein (NEGATIVE) Urine Glucose (UA) (NEGATIVE) Urine Blood (NEGATIVE) Urine Urobilinogen (0.20 - 1.00) E.U./dL Ur Leukocyte Esterase (NEGATIVE) 05/13/19 05/14/19 05/14/19 Range/Units 21:27 03:45 03:45 WBC 17.3 H (4.2-12.2) K/uL RBC 4.07 L (4.40-5.70) M/uL Hgb 11.6 L (14.0-18.0) gm/dl Hct 36.0 L (42.0-52.0) % MCHC (32-36) g/dl MPV 11.1 H (7.4-10.4) fl Neutrophils % 82.0 H (47-80) % Band Neutrophils % (0-5) % Lymphocytes % 7.8 L (16-45) % Lymphocytes 11.0 L (16-45) % PT (9.5-12.1) SECONDS Chloride 108 H (98-107) mmol/L Anion Gap (7-16) BUN (8-23) mg/dL Creatinine (0.7-1.2) mg/dL POC Glucose 189 H (70-110) mg/dL Random Glucose 177 H (74-109) mg/dL Lactic Acid (0.5-2.2) mmol/L Calcium 8.7 L (8.8-10.2) mg/dL Alkaline Phosphatase (40-129) U/L Creatine Kinase (39-308) U/L Troponin T (0-0.010) ng/mL Total Protein (6.6-8.7) g/dL Albumin (4.0-5.0) g/dL Albumin/Globulin Ratio (1.1-1.8) Urine Protein (NEGATIVE) Urine Glucose (UA) (NEGATIVE) Urine Blood (NEGATIVE) Urine Urobilinogen (0.20 - 1.00) E.U./dL Ur Leukocyte Esterase (NEGATIVE) 05/14/19 Range/Units 07:45 WBC (4.2-12.2) K/uL RBC (4.40-5.70) M/uL Hgb (14.0-18.0) gm/dl Hct (42.0-52.0) % MCHC (32-36) g/dl MPV (7.4-10.4) fl Neutrophils % (47-80) % Band Neutrophils % (0-5) % Lymphocytes % (16-45) % Lymphocytes (16-45) % PT (9.5-12.1) SECONDS Chloride (98-107) mmol/L Anion Gap (7-16) BUN (8-23) mg/dL Creatinine (0.7-1.2) mg/dL POC Glucose 177 H (70-110) mg/dL Random Glucose (74-109) mg/dL Lactic Acid (0.5-2.2) mmol/L Calcium (8.8-10.2) mg/dL Alkaline Phosphatase (40-129) U/L Creatine Kinase (39-308) U/L Troponin T (0-0.010) ng/mL Total Protein (6.6-8.7) g/dL Albumin (4.0-5.0) g/dL Albumin/Globulin Ratio (1.1-1.8) Urine Protein (NEGATIVE) Urine Glucose (UA) (NEGATIVE) Urine Blood (NEGATIVE) Urine Urobilinogen (0.20 - 1.00) E.U./dL Ur Leukocyte Esterase (NEGATIVE) Condition at Discharge: (2) Stable Discharge Medications - Discharge Medications Prescriptions: Ampicillin Trihydrate 500 mg PO Q6H 38 Days #40 capsule Home Medications: Ambulatory Orders Simvastatin [Zocor] 40 mg PO QHS 01/15/14 [Last Taken 05/10/19] Tamsulosin HCl [Flomax] 0.4 mg PO QHS cap.er.24h 05/07/17 [Last Taken 05/10/19] Sennosides [Senna Lax] 8.6 mg PO BID PRN 04/08/19 [Last Taken 05/10/19] Aspirin [Ecotrin] 81 mg PO DAILY #100 tab.dr 04/24/19 [Last Taken 05/10/19] Carvedilol [Coreg] 6.25 mg PO BID #60 tablet 04/24/19 [Last Taken 05/10/19] Tramadol HCl [Ultram] 50 mg PO Q6H PRN #10 tablet 04/24/19 [Last Taken 05/10/19] Aspirin 325 mg PO ASDIR 04/25/19 [Last Taken 05/10/19] Duloxetine HCl 30 mg PO QHS 05/02/19 [Last Taken 05/10/19] Duloxetine HCl 60 mg PO DAILY 05/02/19 [Last Taken 05/10/19] Felodipine [Felodipine ER] 10 mg PO DAILY 05/02/19 [Last Taken 05/10/19] Omeprazole 20 mg PO QAM 05/02/19 [Last Taken 05/10/19] Polyethylene Glycol 3350 [Miralax] 1 packet PO DAILY #30 packet 05/02/19 [Last Taken 05/10/19] Ampicillin Trihydrate 500 mg PO Q6H 38 Days #40 capsule 05/14/19 [Last Taken Unknown] Insulin Glargine,Hum.rec.anlog [Lantus] 20 unit SQ QAM #0 05/14/19 [Last Taken 05/10/19] Discharge Plan - Discharge Instructions Activity at Discharge: Ambulate Only With Your Walker Diet at Discharge: Diabetic Diet Additional Instructions: Continue taking Ampicillin 500mg every 6 hours for the next 9.5 days. The patient has already received IV doses prior to discharge. Check urine analysis after completion of antibiotics and follow up the patient's PCP for this. Resume all home medications with the exception of Novolog and reduce the Lantus to 20 units daily due to hypoglycemia. Dose titration should be discussed with PCP based on accuchecks once he returns home. PCP: Dr. Saurabh Xiong Keep Tobar catheter in place until follow up with Urology. Health aid assist with tobar care as needed. Quality Measures - Quality Measures Quality Measures: Atrial Fibrillation & Atrial Flutter: Chronic Anticoagulation Therapy, Advance Directives, Coronary Artery Disease: Antiplatelet Therapy, Documentation of Current Medications in Medical Record, Elder Maltreatment Screen and Follow-Up Plan, Heart Failure, Screening for High Blood Pressure and F/U Documented - Current Medications Quality Measure: Measure #130: Documentation of Current Medications Documentation of Current Medications: <Current Medications Documented/Reviewed> [M4566] - Blood Pressure Screening Quality Measure: Screening for High Blood Pressure and Follow-Up Documented Does Patient Have Any of the Following: Active Dx of HTN Blood Pressure Classification: Normal BP Reading Systolic Measurement: 107 Diastolic Measurement: 66 Screening for High Blood Pressure: Patient Exclusion, Hx of HTN [N2221] - Atrial Fibrillation and Atrial Flutter Quality Measure: Atrial Fibrillation & Atrial Flutter: Chronic Anticoagulation Therapy Does Patient Have Any of the Following: No CHADS2 Risk Stratification: Age 75 or Greater, Hypertension, Diabetes Mellitus Risk Stratification Summary: One or more high risk factors OR more than one moderate risk factor exists. [W7472] Anticoagulation Therapy: Not Prescribed for Medical Reason [A8968] Medical Reason for NOT Prescribing Anticoagulant: Risk of Bleeding - Coronary Artery Disease Quality Measure: Measure #6: Coronary Artery Disease (CAD) Antiplatelet Therapy: <ASA or clopidogrel prescribed> [0655F] - Heart Failure (KAREN/ARB Therapy) Quality Measure: Heart Failure Left Ventricular Systolic Function: Unknown KAREN Inhibitor or ARB Therapy for LVSD: Not Eligible - Heart Failure (Beta-shaggy Therapy) Quality Measure: Heart Failure Left Ventricular Systolic Function: Unknown Beta-Shaggy Therapy for LVEF < 40%: Not Eligible - Advance Directives Quality Measure: Measure #47: Care Plan Advance Directives Established: Yes Advance Directives Information Provided To Patient: No Advance Directives on File: No Living Will: Yes Power of Sorting Machine Attendant: Yes Power of Sorting Machine Attendant Name: Kassandra(daughter) Advance Care Planning: <Care Plan/Decision Maker Documented; Discussed & Documented> [6285F] - Elder Abuse Suspicion Index Screening: Elder Abuse Suspicion Index Screening Rely on people for bathing, dressing, shopping, banking, etc: Yes Prevented from getting food, clothes, medication, etc: No Made to feel shamed or threatened by someone: No Forced to sign papers or use money against will: No Feel afraid, touched in ways not wanted or hurt physically: No Poor eye contact, withdrawn, malnourished, cuts or bruises: No Screening Result: Negative result EASI Reference Information: Feliciano MCKEON, Fidencio C, Derrek D, Lizzie Barone.Development and validation of a tool to assist physicians identification of elder abuse: The Elder Abuse Suspicion Index (EASI ). Journal of Elder Abuse and Neglect, 2008; 20 (3): 276-300. - Elder Maltreatment Screen Quality Measures: Elder Maltreatment Screen and Follow-Up Plan Elder Maltreatment Screen: <Negative, No Follow-Up Plan Required> [G8734]
[2019-05-14] MEDS: LIDOCAINE 5% PATCH TOP SCH (09:22)
[2019-05-14] MEDS: ASPIRIN 81 MG TABEC PO SCH (09:22)
[2019-05-14] MEDS: CARVEDILOL 3.125 MG TABLET PO SCH (09:22)
[2019-05-14] MEDS: DULOXETINE HCL 30 MG CAPSULE.DR PO SCH (09:25)
[2019-05-14] MEDS: LEVEMIR FLEXTOUCH 100 UNIT/ML INSULIN PEN SQ SCH (09:27)
[2019-05-14] MEDS ORDERED: AMPICILLIN SODIUM IV ONE (10:00)
[2019-05-14] MEDS ORDERED: SODIUM CHLORIDE 0.9% IV ONE (10:00)
== END 2019-05-14 18:15 | disposition home health service (06) | DRG 689 ==
LOC: ER 09:04 → MEDSURG 12:05
PROVIDERS: ADMIT Internal Medicine; ATTEND Internal Medicine
DX: N39.0 Urinary tract infection, site not specified (principal); A41.9 Sepsis, unspecified organism; R50.9 Fever, unspecified; F03.90 Unspecified dementia, unspecified severity, without behavioral disturbance, psychotic disturbance, mood disturbance, and anxiety; I10 Essential (primary) hypertension; E11.9 Type 2 diabetes mellitus without complications; R33.9 Retention of urine, unspecified; I25.2 Old myocardial infarction; N32.0 Bladder-neck obstruction; Z66 Do not resuscitate; Z85.038 Personal history of other malignant neoplasm of large intestine; Z79.4 Long term (current) use of insulin
CPT/HCPCS: 51702; 82550; 83605; 85730; 85610; 82553; 80053; 81001; 82009; 84484; 85027; 71045; 72125; 70450; 74176; 93005; 93010; J0696; 36416; 80048; 82948; 90686; 90732; 96365; 96366; 99223; 99233; 99239; 99285; J1885; J1956; J7030

== ENCOUNTER 2019-06-08 07:38 | Emergency (ER) | payer BC, MEDICARE ==
--- NOTE | 2019-06-08 07:48 | Emergency Department Record ---
History of Present Illness - General Stated complaint: CATHETER PROBLEMS Time Seen by Provider: 06/08/19 07:41 Source: Patient, Family Mode of Arrival: Ambulatory Limitations: No limitations - History of Present Illness Initial comments: 89 yo male presents with a concern with his indwelling Tobar catheter. During the night the catheter fell out. The patient denies any pain. No fevers. He states he has no other complaints and he is at his baseline. He has had an indwelling catheter for several months. Dr. Ramos is his Urologist. MD Complaint: Other (Tobar Catheter concern) -: Hour(s) Location: Penis Radiation: None Severity: Mild Quality: Other (none) Consistency: Constant Improves with: None Worsens with: Urination Indwelling catheter Reports: Denies other symptoms - Related Data Previous Rx's Medication Instructions Recorded Tamsulosin HCl [Flomax] 0.4 mg PO QHS cap.er.24h 05/07/17 Aspirin [Ecotrin] 81 mg PO DAILY #100 tab 04/24/19 Carvedilol [Coreg] 6.25 mg PO BID #60 tablet 04/24/19 Tramadol HCl [Ultram] 50 mg PO Q6H PRN #10 tablet 04/24/19 Polyethylene Glycol 3350 [Miralax] 1 packet PO DAILY #30 packet 05/02/19 Ampicillin Trihydrate 500 mg PO Q6H 38 Days #40 capsule 05/14/19 Insulin Glargine,Hum.rec.anlog 20 unit SQ QAM #0 05/14/19 [Lantus] Cephalexin [Keflex] 500 mg PO TID #21 cap 06/08/19 Allergies Allergy/AdvReac Type Severity Reaction Status Date / Time pregabalin [From Lyrica] Allergy PT UNSURE Verified 05/11/19 09:09 OF REACTION triamterene [From Dyazide] AdvReac Mild ITCHING Verified 05/11/19 09:09 Review of Systems Constitutional: Denies: Chills, Fever Eyes: Denies: Eye discharge, Vision change ENT: Denies: Congestion, Throat pain Respiratory: Denies: Cough, Dyspnea Cardiovascular: Denies: Chest pain, Syncope Endocrine: Denies: Fatigue Gastrointestinal: Denies: Abdominal pain, Diarrhea, Nausea, Vomiting Genitourinary: Reports: Hematuria. Denies: Dysuria, Frequency Musculoskeletal: Denies: Arthralgia, Back pain, Myalgia Skin: Denies: Bruising, Change in color, Rash Neurological: Denies: Headache Psychiatric: Denies: Anxiety Hematological/Lymphatic: Denies: Easy bleeding, Easy bruising Past Medical History - SOCIAL HISTORY Smoking Status: Never smoker Drug Use: None - RESPIRATORY Hx Respiratory Disorders: No - CARDIOVASCULAR Hx Cardio Disorders: Yes Hx Heart Attack: Yes Hx Hypertension: Yes - NEURO Hx Neuro Disorders: Yes Hx Dementia: Yes - GI Hx GI Disorders: Yes Hx Reflux: Yes Comment:: bowel obstruction - Hx Genitourinary Disorders: Yes Hx Bladder Problem: Yes (retention) Hx Prostate Problems: Yes Comment:: tobar in place upon arrival - ENDOCRINE Hx Endocrine Disorders: Yes Hx Diabetes: Yes - MUSCULOSKELETAL Hx Musculoskeletal Disorders: Yes Hx Arthritis: Yes Comment:: hx bilateral hip replacement - PSYCH Hx Psych Problems: No - HEMATOLOGY/ONCOLOGY Hx Hematology/Oncology Disorders: Yes Hx Cancer: Yes (Colon) Hx Chemotherapy: No Hx Radiation Therapy: Yes Family Medical History Hx Heart Disease: Mother Physical Exam - General General Appearance: Alert, Oriented x3, Cooperative, No acute distress Limitations: No limitations - Head Head exam: Atraumatic, Normal inspection - Eye Eye exam: Normal appearance. negative: Conjunctival injection - ENT ENT exam: Normal exam Ear exam: Normal external inspection Nasal Exam: Normal inspection Mouth exam: Normal external inspection - Neck Neck exam: Normal inspection - Respiratory Respiratory exam: Normal lung sounds bilaterally. negative: Respiratory distress - Cardiovascular Cardiovascular Exam: Regular rate, Normal rhythm, Normal heart sounds - GI/Abdominal GI/Abdominal exam: Soft. negative: Tenderness - exam: Circumcision, Normal inspection. negative: Scrotal swelling - Neurological Neurological exam: Alert - Psychiatric Psychiatric exam: Normal affect, Normal mood - Skin Skin exam: Dry, Intact, Normal color, Warm Course - Reevaluation(s) Reevaluation #1: 06/08/19 08:16 16 Fr Regular placed no difficulty, no bleeding. DC home with instructions Disposition Disposition: Discharge Clinical Impression: Urinary retention Disposition: Home, Self-Care Condition: (1) Good Instructions: Tobar Catheter Placement and Care (ED) Additional Instructions: Return as needed if you have any trouble with the tobar or its function. Prescriptions: Cephalexin [Keflex] 500 mg PO TID #21 cap Time of Disposition: 08:15 Quality - Quality Measures Quality Measures: N/A - Blood Pressure Screening Does Patient Have Any of the Following: Active Dx of HTN Blood Pressure Classification: Pre-Hypertensive BP Reading Systolic Measurement: 165 Diastolic Measurement: 84 Screening for High Blood Pressure: Patient Exclusion, Hx of HTN [G9744]
[2019-06-08] MEDS ORDERED: LIDOCAINE UROJECT 10 ML APPL MM ONE (07:51)
[2019-06-08] MEDS ORDERED: CEPHALEXIN 500 MG CAPSULE PO STA (08:12)
== END 2019-06-08 08:32 | disposition home or self-care (01) ==
LOC: ER 07:38
DX: T83.028A Displacement of other urinary catheter, initial encounter (principal); R33.8 Other retention of urine; Y73.8 Miscellaneous gastroenterology and urology devices associated with adverse incidents, not elsewhere classified; Y92.122 Bedroom in nursing home as the place of occurrence of the external cause; I10 Essential (primary) hypertension; E11.9 Type 2 diabetes mellitus without complications; I25.2 Old myocardial infarction
CPT/HCPCS: 99283

== ENCOUNTER 2019-06-19 09:57 | Emergency (ER) | payer MEDICARE ==
--- NOTE | 2019-06-19 10:19 | Emergency Department Record ---
History of Present Illness - General Chief Complaint: Fall Injury Stated Complaint: FALL Time Seen by Provider: 06/19/19 10:12 Source: Patient, EMS Mode of Arrival: EMS Limitations: No limitations - History of Present Illness Initial Comments: Pt to ED from living facility by EMS with C collar in place. Pt found on floor by bed this AM. Pt is alert and provides a good history of events. States he fell from bed. Pt denies hitting his head or injury to neck. He has no PEARSON or neck pain. He has some discomfort in his back which is chronic and "no di fferent than normal". Pt is taking ASA at home daily. We await daughter who is in route to the hospital. -: Unknown Fall From: Out of bed When Fall Occurred: Unsure Fall Witnessed: No Place Fall Occurred: Home Loss of Consciousness: Unsure Prolonged Down Time?: Unclear Symptoms Prior to Fall: None Associated Symptoms: Denies - Reymundo Coma Scale Eye Response: (4) Open spontaneously Motor Response: (6) Obeys commands Verbal Response: (5) Oriented Reymundo Total: 15 - Related Data Home Medications Medication Instructions Recorded Confirmed Last Taken Acetaminophen 650 mg PO Q6H PRN 06/19/19 06/19/19 05/31/19 Insulin Aspart [Novolog] 4 units SQ [id number] PRN 06/19/19 06/19/19 06/18/19 17:00 Previous Rx's Medication Instructions Recorded Tamsulosin HCl [Flomax] 0.4 mg PO QHS cap.er.24h 05/07/17 Aspirin [Ecotrin] 81 mg PO DAILY #100 tab. 04/24/19 Carvedilol [Coreg] 6.25 mg PO BID #60 tablet 04/24/19 Tramadol HCl [Ultram] 50 mg PO Q6H PRN #10 tablet 04/24/19 Polyethylene Glycol 3350 [Miralax] 1 packet PO DAILY #30 packet 05/02/19 Insulin Glargine,Hum.rec.anlog 20 unit SQ QAM #0 05/14/19 [Lantus] Allergies Allergy/AdvReac Type Severity Reaction Status Date / Time pregabalin [From Lyrica] Allergy PT UNSURE Verified 06/19/19 10:06 OF REACTION triamterene [From Dyazide] AdvReac Mild ITCHING Verified 11/21/19 10:06 Travel Screening - Travel/Exposure Within Last 30 Days Have you traveled within the last 30 days?: No Review of Systems Constitutional: Denies: Chills, Fever, Weakness Eyes: Denies: Eye discharge, Eye pain, Vision change ENT: Denies: Congestion Respiratory: Denies: Cough Cardiovascular: Denies: Arrhythmia, Chest pain, Syncope Endocrine: Denies: Fatigue Gastrointestinal: Denies: Abdominal pain, Nausea, Vomiting Musculoskeletal: Reports: Back pain (chronic back pain) Skin: Denies: Bruising, Rash Neurological: Denies: Confusion, Headache, Tingling, Weakness Psychiatric: Denies: Anxiety Hematological/Lymphatic: Denies: Anemia Past Medical History - SOCIAL HISTORY Smoking Status: Never smoker Alcohol Use: None Drug Use: None - RESPIRATORY Hx Respiratory Disorders: No - CARDIOVASCULAR Hx Cardio Disorders: Yes Hx Heart Attack: Yes Hx Hypertension: Yes - NEURO Hx Neuro Disorders: Yes Hx Dementia: Yes - GI Hx GI Disorders: Yes Hx Reflux: Yes Comment:: bowel obstruction - Hx Genitourinary Disorders: Yes Hx Bladder Problem: Yes (retention) Hx Prostate Problems: Yes - ENDOCRINE Hx Endocrine Disorders: Yes Hx Diabetes: Yes - MUSCULOSKELETAL Hx Musculoskeletal Disorders: Yes Hx Arthritis: Yes Comment:: hx bilateral hip replacement - PSYCH Hx Psych Problems: No - HEMATOLOGY/ONCOLOGY Hx Hematology/Oncology Disorders: Yes Hx Cancer: Yes (Colon) Hx Chemotherapy: No Hx Radiation Therapy: Yes Family Medical History Any Significant Family History?: Yes Hx Heart Disease: Mother Physical Exam - General General Appearance: Alert, Oriented x3, Cooperative, No acute distress - Head Head exam: Atraumatic, Normal inspection Head exam detail: negative: Abrasion, Contusion, Miller's sign, Hematoma - Eye Eye exam: Normal appearance, PERRL - ENT ENT exam: Mucous membranes moist, Normal external ear exam, Normal orophraynx Nasal Exam: Normal inspection - Neck Neck exam: Normal inspection, Full ROM. negative: Tenderness (no midline pain with full motion - ) - Respiratory Respiratory exam: Normal lung sounds bilaterally. negative: Respiratory distress, Wheezes - Cardiovascular Cardiovascular Exam: Regular rate, Normal rhythm. negative: Tachycardia Peripheral Pulses: 2+: Radial (R), Radial (L) - GI/Abdominal GI/Abdominal exam: Soft, Normal bowel sounds. negative: Distended, Tenderness - Extremities Extremities exam: Normal inspection, Full ROM. negative: Calf tenderness, Joint swelling, Pedal edema, Tenderness - Back Back exam: Reports: Normal inspection. Denies: Paraspinal tenderness, Tenderness, Vertebral tenderness - Neurological Neurological exam: Alert, CN II-XII intact, Oriented X3. negative: Motor sensory deficit - Psychiatric Psychiatric exam: Normal affect, Normal mood - Skin Skin exam: Normal color. negative: Abrasion, Erythema Type of lesion: negative: abrasion Course Vital Signs 06/19/19 10:02 Temperature 97.7 F Pulse Rate 56 L Respiratory 20 Rate Blood Pressure 161/85 Pulse Ox 98 - Reevaluation(s) Reevaluation #1: 06/19/19 10:17 Seen on arrival and is alert and appropriate. Neck is non tender without distracting injuries. Collar removed. Exam with motion of all joints without pain. Sits up and back without contusion or midline pain. We await the arrival of his daughter to discuss plan. At this time I feel no need for imaging or further testing. Reevaluation #2: 06/19/19 11:30 Spoke with daughter Diane, agrees with no extensive workup today. Pt remains appropriate and without complaint, Home Disposition Disposition: Discharge Clinical Impression: Fall involving bed as cause of accidental injury in residential institution as place of occurrence Qualifiers: Encounter type: initial encounter Qualified Code(s): W06.XXXA - Fall from bed, initial encounter Disposition: Home, Self-Care Condition: (2) Stable Instructions: Fall Prevention for Older Adults (ED) Additional Instructions: Continue current care. Return a needed. Forms: Patient Portal Access Time of Disposition: 11:29 Quality - Quality Measures Quality Measures: N/A - Blood Pressure Screening Does Patient Have Any of the Following: No Blood Pressure Classification: Pre-Hypertensive BP Reading Systolic Measurement: 161 Diastolic Measurement: 85 Screening for High Blood Pressure: Patient Exclusion, Hx of HTN [G9744]
== END 2019-06-19 11:44 | disposition home or self-care (01) ==
LOC: ER 09:57
DX: M25.552 Pain in left hip (principal); M54.9 Dorsalgia, unspecified; G89.11 Acute pain due to trauma; W06.XXXA Fall from bed, initial encounter; Y92.003 Bedroom of unspecified non-institutional (private) residence as the place of occurrence of the external cause; I10 Essential (primary) hypertension; I25.2 Old myocardial infarction; E11.9 Type 2 diabetes mellitus without complications
CPT/HCPCS: 99283

== ENCOUNTER 2019-08-13 16:58 | Emergency (ER) | payer MEDICARE ==
--- NOTE | 2019-08-13 17:23 | Emergency Department Record ---
History of Present Illness - General Chief Complaint: Fall Injury Stated Complaint: FALL HEAD INJ Time Seen by Provider: 08/13/19 17:04 - History of Present Illness Initial Comments: patient fell at [facility] and hit his head and has a skin tear of the right hand 2 cm and no sutures possible with vert thin skin. area cleaned and steristripped. Patient is talking appropriately per and daughter and patient is in hospise at [facility] for three months and he has alzheimers disease and he had a left hip fracture but no surgery because to high risk per Dr Mai. 3 months ago. Currently he is complaining about right hip pain. Talked to the and daughter and the best care would be to do a CT of head and neck to rule out occu lt problems because of his alzheimer's disease and they refused the head CT and neck CT because they would not do any surgery to correct the problems. Currently his mental status is at baseline. Patient is a DNR - Related Data Home Medications Medication Instructions Recorded Confirmed Last Taken Aspirin [Ecotrin] 325 mg PO DAILY 08/13/19 08/13/19 Cephalexin 250 mg PO TID 08/13/19 08/13/19 08/13/19 Furosemide [Lasix] 20 mg PO DAILY 08/13/19 08/13/19 08/13/19 Oxycodone HCl 5 mg PO Q12H 08/13/19 08/13/19 Unknown Polyethylene Glycol 3350 [Miralax] 1 pack PO ASDIR 08/13/19 08/13/19 Unknown Potassium Chloride [Klor-Con 10] 10 meq PO DAILY 08/13/19 08/13/19 08/13/19 Previous Rx's Medication Instructions Recorded Tamsulosin HCl [Flomax] 0.4 mg PO QHS cap.er.24h 05/07/17 Carvedilol [Coreg] 6.25 mg PO BID #60 tablet 04/24/19 Polyethylene Glycol 3350 [Miralax] 1 packet PO DAILY #30 packet 05/02/19 Insulin Glargine,Hum.rec.anlog 20 unit SQ QAM #0 05/14/19 [Lantus] Allergies Allergy/AdvReac Type Severity Reaction Status Date / Time pregabalin [From Lyrica] Allergy PT UNSURE Verified 08/13/19 17:14 OF REACTION triamterene [From Dyazide] AdvReac Mild ITCHING Verified 08/13/19 17:14 Review of Systems Reviewed: No additional complaints except as noted below Constitutional: Reports: As per HPI. Denies: Chills, Fever, Malaise, Night sweats, Weakness, Weight change Eyes: Reports: As per HPI. Denies: Eye discharge, Eye pain, Photophobia, Vision change ENT: Reports: As per HPI. Denies: Congestion, Dental pain, Ear pain, Epistaxis, Hearing loss, Throat pain Respiratory: Reports: As per HPI. Denies: Cough, Dyspnea, Hemoptysis, Stridor, Wheezes Cardiovascular: Reports: As per HPI. Denies: Arrhythmia, Chest pain, Dyspnea on exertion, Edema, Murmurs, Orthopnea, Palpitations, Paroxysmal nocturnal dyspnea, Rheumatic Fever, Syncope Endocrine: Reports: As per HPI. Denies: Fatigue, Heat or cold intolerance, Polydipsia, Polyuria Gastrointestinal: Reports: As per HPI. Denies: Abdominal pain, Constipation, Diarrhea, Hematemesis, Hematochezia, Melena, Nausea, Vomiting Genitourinary: Reports: As per HPI. Denies: Dysuria, Frequency, Hematuria, Incontinence, Retention, Testicular pain, Testicular mass, Urgency Musculoskeletal: Reports: As per HPI, Other (right hip pain). Denies: Arthralgia, Back pain, Gout, Joint swelling, Myalgia, Neck pain Skin: Reports: As per HPI. Denies: Bruising, Change in color, Change in hair/nails, Lesions, Pruritus, Rash Neurological: Reports: As per HPI. Denies: Abnormal gait, Confusion, Headache, Numbness, Paresthesias, Seizure, Tingling, Tremors, Vertigo, Weakness Psychiatric: Reports: As per HPI. Denies: Anxiety, Auditory hallucinations, Depression, Homicidal thoughts, Suicidal thoughts, Visual hallucinations Hematological/Lymphatic: Reports: As per HPI. Denies: Anemia, Blood Clots, Easy bleeding, Easy bruising, Swollen glands Past Medical History - SOCIAL HISTORY Smoking Status: Never smoker Drug Use: None - RESPIRATORY Hx Respiratory Disorders: No - CARDIOVASCULAR Hx Cardio Disorders: Yes Hx Heart Attack: Yes Hx Hypertension: Yes - NEURO Hx Neuro Disorders: Yes Hx Dementia: Yes - GI Hx GI Disorders: Yes Hx Reflux: Yes Comment:: bowel obstruction - Hx Genitourinary Disorders: Yes Hx Bladder Problem: Yes (retention) Hx Prostate Problems: Yes - ENDOCRINE Hx Endocrine Disorders: Yes Hx Diabetes: Yes - MUSCULOSKELETAL Hx Musculoskeletal Disorders: Yes Hx Arthritis: Yes Comment:: hx bilateral hip replacement - PSYCH Hx Psych Problems: No - HEMATOLOGY/ONCOLOGY Hx Hematology/Oncology Disorders: Yes Hx Cancer: Yes (Colon) Hx Chemotherapy: No Hx Radiation Therapy: Yes Family Medical History Hx Heart Disease: Mother Physical Exam - General General Appearance: Alert, Oriented x3, Cooperative, No acute distress - Head Head exam: Normal inspection - Eye Eye exam: Normal appearance, PERRL Pupils: Normal accommodation - ENT ENT exam: Normal exam, Mucous membranes moist, Normal external ear exam, Normal orophraynx, TM's normal bilaterally Ear exam: Normal external inspection. negative: External canal tenderness Nasal Exam: Normal inspection. negative: Discharge, Sinus tenderness Mouth exam: Normal external inspection, Tongue normal Teeth exam: Normal inspection. negative: Dental caries Throat exam: Normal inspection. negative: Tonsillar erythema, Tonsillar exudate - Neck Neck exam: Normal inspection, Full ROM. negative: Tenderness - Respiratory Respiratory exam: Normal lung sounds bilaterally. negative: Respiratory distress - Cardiovascular Cardiovascular Exam: Regular rate, Normal rhythm, Normal heart sounds - GI/Abdominal GI/Abdominal exam: Soft, Normal bowel sounds. negative: Tenderness - Rectal Rectal exam: Deferred - exam: Deferred - Extremities Extremities exam: Normal inspection, Full ROM, Normal capillary refill. negative: Tenderness - Back Back exam: Reports: Normal inspection, Full ROM. Denies: Muscle spasm, Rash noted, Tenderness - Neurological Neurological exam: Alert, Normal gait, Oriented X3, Reflexes normal - Psychiatric Psychiatric exam: Normal affect, Normal mood - Skin Skin exam: Dry, Intact, Normal color, Warm Course - Reevaluation(s) Reevaluation #1: talked to the hospise nurse Lizzie and he has had blood in his urine from a UTI and is on keflex for that and he also was impacted with constipation with disempaction 5 days and and he had some bleeding in the stool from that. his hg is good at 13.2 and I recommended they use prep H on the rectum. 08/13/19 18:45 Reevaluation #2: neuro recheck and his neuro exam is the same as previous oriented to person but not time or place and rest of the exam intact 08/13/19 18:49 Medical Decision Making - Lab Data Result diagrams: 08/13/19 17:25 Disposition Clinical Impression: Contusion of head Qualifiers: Encounter type: initial encounter Contusion of head detail: scalp Qualified Code(s): S00.03XA - Contusion of scalp, initial encounter Contusion, hip Qualifiers: Encounter type: initial encounter Laterality: right Qualified Code(s): S70.01XA - Contusion of right hip, initial encounter Condition: (1) Good Instructions: Fall Prevention for Older Adults (ED), Contusion in Adults (ED), Head Injury (ED) Additional Instructions: follow up with the hospise nurse tylenol for pain Forms: Patient Portal Access Time of Disposition: 18:49 Quality - Quality Measures Quality Measures: N/A - Blood Pressure Screening Does Patient Have Any of the Following: No, Active Dx of HTN Blood Pressure Classification: Pre-Hypertensive BP Reading Systolic Measurement: 168 Diastolic Measurement: 86 Screening for High Blood Pressure: Patient Exclusion, Hx of HTN [G9744]
[2019-08-13 17:37] LABS: ABSOLUTE NEUTROPHIL COUNT 3.68; BASO % 0.2 % (0-6); EOS % 4.5 % (0-6); GRAN % 65.6 % (47-80); HEMATOCRIT 42.8 % (42.0-52.0); HEMOGLOBIN 13.8 gm/dl (14.0-18.0); LYMPH % 20.4 % (16-45); MEAN CELL VOLUME 86.8 fl (81-97); MEAN CORPUSCULAR HGB CONC 32.2 g/dl (32-36); MEAN PLATELET VOLUME 10.2 fl (7.4-10.4); MONO % 9.3 % (0-9); PLATELET COUNT 281 K/uL (130-400); RED BLOOD COUNT 4.93 M/uL (4.40-5.70); RED CELL DISTRIBUTION WIDTH 15.7 % (11.5-14.5); WHITE BLOOD COUNT W/O DIFF 5.6 K/uL (4.2-12.2)
[2019-08-13 17:39] LABS: MEAN CORPUSCULAR HEMOGLOBIN 27.9 pg (27-33)
--- NOTE | 2019-08-13 18:14 | RADIOLOGY REPORT ---
EXAMINATION: Right Hip Minimum Two Views EXAM DATE: 08/13/2019 5:55 PM TECHNIQUE: AP pelvis and right frog leg lateral hip views INDICATION: fall COMPARISON: None ENCOUNTER: Initial FINDINGS: Normal bony architecture. Degenerative change LS-spine. SI joints patent and symmetrical. Bilateral h ip arthroplasty. No acute fracture or dislocation. Penile prosthesis. IMPRESSION: No acute abnormality, follow-up bone scan if symptoms persist Dictated by: Ramirez Toledo MD on 08/13/2019 6:12 PM. .
== END 2019-08-13 19:02 | disposition home or self-care (01) ==
LOC: ER 16:58
DX: S61.411A Laceration without foreign body of right hand, initial encounter (principal); S00.03XA Contusion of scalp, initial encounter; S70.01XA Contusion of right hip, initial encounter; N39.0 Urinary tract infection, site not specified; R31.0 Gross hematuria; K59.00 Constipation, unspecified; G30.9 Alzheimer's disease, unspecified; F02.80 Dementia in other diseases classified elsewhere, unspecified severity, without behavioral disturbance, psychotic disturbance, mood disturbance, and anxiety; E11.9 Type 2 diabetes mellitus without complications; I10 Essential (primary) hypertension; I25.2 Old myocardial infarction; W19.XXXA Unspecified fall, initial encounter; Z91.81 History of falling; Y92.121 Bathroom in nursing home as the place of occurrence of the external cause
CPT/HCPCS: 85025; 99283